=== PATIENT | male | born 1950 | race Caucasian/White ===

== ENCOUNTER 2016-07-22 23:11 | Emergency (ER) | payer MEDICARE, OTHER ==
[2016-07-22 23:22] VITALS: BP 152/66
[2016-07-22] MEDS ORDERED: Orphenadrine 100 MG Tab.ER PO STA (23:51)
--- NOTE | 2016-07-23 | EDM.PDOC ---
ED HPI GENERAL MEDICAL PROBLEM - General Chief Complaint: Back Pain or Injury Stated Complaint: LOWER LEFT SIDE PAIN Time Seen by Provider: 07/22/16 23:21 Source of Information: Reports: Patient, Family (), Old Records, RN Notes Reviewed History Limitations: Reports: No Limitations - History of Present Illness INITIAL COMMENTS - FREE TEXT/NARRATIVE: The patient states that he developed left lower back pain 3 days ago. He states that it initially radiated to his left lower quadrant, and was initially come and go, but now it is constant and remains in his lower left back. He is unable to describe its character. He states that it is worse with ambulation and lying supine. He denies recent injury. He denies prior similar symptoms. No urinary symptoms. The patient denies a prior history of kidney stones. The patient states that he has been taking ibuprofen which has not been helping. The patient PCP is Dr. Umer Ag from [place], [place]. The patient states that he has an appointment to see Dr. Ag on 08/02/2016. Treatments [employer]ER: Reports: NSAIDS Left Lower Back Pain Score (Numeric/FACES): 7 - Related Data Allergies Allergy/AdvReac Type Severity Reaction Status Date / Time No Known Allergies Allergy Verified 03/28/16 17:40 Home Meds: Home Meds Hydrochlorothiazide 25 mg PO DAILY 07/22/16 [History] Lisinopril 40 mg PO DAILY 07/22/16 [History] Orphenadrine [Norflex] 1 tab PO Q12H #20 tab.er 07/22/16 [Rx] Pantoprazole Sodium [Protonix] 40 mg PO DAILY 07/22/16 [History] Paquinel 1 tab PO DAILY 07/22/16 [History] Past Medical History HEENT History: Reports: Impaired Vision Other HEENT History: glasses Cardiovascular History: Reports: Hypertension Gastrointestinal History: Reports: Colon Polyp, GERD Musculoskeletal History: Reports: Arthritis, Back Pain, Chronic Endocrine/Metabolic History: Reports: Obesity/BMI 30+ Immunologic History: Reports: SLE - Infectious Disease History Infectious Disease History: Reports: Other (See Below) (Polio as a child) - Past Surgical History HEENT Surgical History: Reports: Oral Surgery (All teeth extracted), Tonsillectomy Neurological Surgical History: Reports: Lumbar Spine (Lumbar fusion 1999) Musculoskeletal Surgical History: Reports: Knee Replacement (left), Shoulder Surgery (Left total arthroplasty. Right shoulder open surgery) Social & Family History - Family History Family Medical History: Noncontributory - Tobacco Use Smoking Status *Q: Current Every Day Smoker Years of Tobacco use: 40 Packs/Tins Daily: 1 - Caffeine Use Caffeine Use: Reports: None - Alcohol Use Alcohol Use History: No - Recreational Drug Use Recreational Drug Use: No - Living Situation & Occupation Living situation: Reports: , with Spouse, with Family (Daughter, 2 grandchildren) Occupation: Retired ED ROS GENERAL - Review of Systems Review Of Systems: See Below Constitutional: Reports: No Symptoms HEENT: Reports: No Symptoms Respiratory: Reports: No Symptoms Cardiovascular: Reports: No Symptoms Endocrine: Reports: No Symptoms GI/Abdominal: Reports: No Symptoms : Reports: No Symptoms Musculoskeletal: Reports: No Symptoms Skin: Reports: No Symptoms Neurological: Reports: No Symptoms Psychiatric: Reports: No Symptoms Hematologic/Lymphatic: Reports: No Symptoms Immunologic: Reports: No Symptoms ED EXAM,LOWER BACK PAIN/INJURY - Physical Exam Exam: See Below Exam Limited By: No Limitations General Appearance: Alert, WD/WN, No Apparent Distress, Other (Disheveled) Eye Exam: Bilateral Eye: Normal Inspection Ears: Normal External Exam, Hearing Grossly Normal Nose: Normal Inspection, No Blood Throat/Mouth: Normal Inspection, Normal Lips, Normal Voice, No Airway Compromise Head: Atraumatic, Normocephalic Neck: Normal Inspection, Full Range of Motion Respiratory/Chest: No Respiratory Distress, Lungs Clear, Normal Breath Sounds, No Accessory Muscle Use Cardiovascular: Normal Peripheral Pulses, Regular Rate, Rhythm, No Gallop, No JVD, No Murmur, No Rub GI/Abdominal: Normal Bowel Sounds, Soft, Non-Tender, No Organomegaly, No Distention, No Abnormal Bruit, Other (Obese) (Male) Exam: Deferred Back Exam: Normal Inspection, Full Range of Motion, Paraspinal Tenderness (Mild , lower lumbar, left (only)), Other (The patient is able to flex the spine to 90 and extend to 0. He is able to tilt bilaterally to approximately 15. He is able to twist bilaterally to approximately 15. Unilateral knee bend is normal bilaterally. Straight leg raise is negative at 90 bilaterally.). No: CVA Tenderness (L), CVA Tenderness (R) Extremities: Normal Inspection, Normal Range of Motion, No Pedal Edema, Normal Capillary Refill Neurological: Alert, Normal Dorsiflexion, Normal Plantar Flexion, No Motor/ Sensory Deficits, Oriented x 3 Psychiatric: Normal Affect Skin Exam: Warm, Dry, Intact, Normal Color, No Rash Lymphatic: No Adenopathy Course - Vital Signs Last Recorded V/S: Last Vital Signs Temp 37.0 C 07/22/16 23:18 Pulse 98 07/22/16 23:18 Resp 16 07/22/16 23:18 BP 152/66 H 07/22/16 23:18 Pulse Ox 99 07/22/16 23:18 - Orders/Labs/Meds Orders: Active Orders 24 hr Category Date Time Status Orphenadrine [Norflex] Med 07/22/16 23:51 Stat 100 mg PO ONETIME STA - Re-Assessments/Exams Free Text/Narrative Re-Assessment/Exam: 07/22/16 23:50 The patient reports lower left back pain, which he states he has not had previously, however, the patient was seen in this ED 03/28/2016 for a refill of his Percocet 10/325 that he takes for chronic low back pain, and during his history today, he admitted that he has a history of chronic low back pain. He also let slip that he has Percocet at home. On examination, the patient has remarkable flexibility. I do not suspect any nerve involvement. I suspect that the patient is drug-seeking, but to give him the benefit of the doubt, I will treat him for a muscle spasm with Norflex. The patient protested, stating that when he has taken muscle relaxants (citing Valium, which is not a muscle relaxant) in the past, they caused his upper back to "go out". This sounds like nonsense. Departure - Departure Time of Disposition: 23:52 Disposition: Home, Self-Care 01 Condition: good Clinical Impression: Low back pain - Discharge Information Forms: ED Department Discharge Additional Instructions: You were seen in the emergency room for lower left back pain. On examination, your pain appears to be due to a muscle spasm. You have been started on the muscle relaxant Norflex. Take one tablet every 12 hours, as prescribed. Followup with your PCP, Dr. Heraclio Ag, at your previously scheduled appointment 08/02/2016. If any other problems, please do not hesitate to return to the ER. - My Orders Last 24 Hours: My Active Orders 07/22/16 23:51 Orphenadrine [Norflex] 100 mg PO ONETIME STA - Assessment/Plan Last 24 Hours: My Active Orders 07/22/16 23:51 Orphenadrine [Norflex] 100 mg PO ONETIME STA
== END 2016-07-23 00:06 | disposition home or self-care (01) ==
LOC: JD.ED 23:11
DX: M54.5 Low back pain (principal); H54.7 Unspecified visual loss; I10 Essential (primary) hypertension; K21.9 Gastro-esophageal reflux disease without esophagitis; M19.90 Unspecified osteoarthritis, unspecified site; E66.9 Obesity, unspecified; F17.210 Nicotine dependence, cigarettes, uncomplicated; Z68.35 Body mass index [BMI] 35.0-35.9, adult; Z79.899 Other long term (current) drug therapy; Z98.890 Other specified postprocedural states; Z96.652 Presence of left artificial knee joint; Z96.612 Presence of left artificial shoulder joint
CPT/HCPCS: 99283; A9270

== ENCOUNTER 2016-07-23 03:58 | Emergency (ER) | payer MEDICARE, OTHER ==
[2016-07-23 04:08] VITALS: BP 166/74
--- NOTE | 2016-07-23 04:17 | EDM.PDOC ---
ED HPI GENERAL MEDICAL PROBLEM - General Chief Complaint: Flank Pain Stated Complaint: LOWER LEFT SIDE PAIN Time Seen by Provider: 07/23/16 04:05 Source of Information: Reports: Patient, Family (), Old Records, RN Notes Reviewed History Limitations: Reports: No Limitations - History of Present Illness INITIAL COMMENTS - FREE TEXT/NARRATIVE: The patient was seen by me in this ED just a few hours ago with a complaint of lower left back pain for 3 days. He stated at that time that his pain had radiated initially to his left lower quadrant and was come and go, but that it became more constant and remained in his lower left back. He was unable to describe the character of the pain. He stated that it was worse with ambulation or lying supine. He denied recent injury and denied prior similar symptoms, however, the patient admitted that he has a history of chronic lower back pain. On examination, the patient had mild tenderness to his lower left back and remarkable flexibility, including the ability to flex his spine to 90, and his straight leg raise was negative to 90 bilaterally. The patient had indicated that he has been treated with Percocet 10/325 per his PCP, Dr. Heraclio Ag, from [place], [place], and that he still had Percocet at home , however, review of the [place] PMPi indicates that the last prescription for Percocet was filled on 10/07/2015, therefore I suspect that the patient has run out of his Percocet. I felt that the patient was likely drug seeking, however, I gave the patient the benefit of doubt and started him on Norflex. The patient was to followup with his PCP at a previously scheduled appointment on 08/02/2016. He returns, stating that his pain is no better. He states that he expected that he would have relief in under 4 hours. Right Flank Pain Score (Numeric/FACES): 10 - Related Data Allergies Allergy/AdvReac Type Severity Reaction Status Date / Time No Known Allergies Allergy Verified 07/23/16 04:09 Home Meds: Home Meds Hydrochlorothiazide 25 mg PO DAILY 07/22/16 [History] Lisinopril 40 mg PO DAILY 07/22/16 [History] Orphenadrine [Norflex] 1 tab PO Q12H #20 tab.er 07/22/16 [Rx] Pantoprazole Sodium [Protonix] 40 mg PO DAILY 07/22/16 [History] Paquinel 1 tab PO DAILY 07/22/16 [History] Past Medical History HEENT History: Reports: Impaired Vision Other HEENT History: glasses Cardiovascular History: Reports: Hypertension Gastrointestinal History: Reports: Colon Polyp, GERD Musculoskeletal History: Reports: Arthritis, Back Pain, Chronic Endocrine/Metabolic History: Reports: Obesity/BMI 30+ Immunologic History: Reports: SLE - Infectious Disease History Infectious Disease History: Reports: Other (See Below) (Polio as a child) - Past Surgical History HEENT Surgical History: Reports: Oral Surgery (All teeth extracted), Tonsillectomy Neurological Surgical History: Reports: Lumbar Spine (Lumbar fusion 1999) Musculoskeletal Surgical History: Reports: Knee Replacement (left), Shoulder Surgery (Left total arthroplasty. Right shoulder open surgery) Social & Family History - Family History Family Medical History: Noncontributory - Tobacco Use Smoking Status *Q: Current Every Day Smoker Years of Tobacco use: 40 Packs/Tins Daily: 1 - Caffeine Use Caffeine Use: Reports: None - Recreational Drug Use Recreational Drug Use: No - Living Situation & Occupation Living situation: Reports: , with Spouse, with Family (Daughter, 2 grandchildren) Occupation: Retired ED ROS GENERAL - Review of Systems Review Of Systems: See Below Constitutional: Reports: No Symptoms HEENT: Reports: No Symptoms Respiratory: Reports: No Symptoms Cardiovascular: Reports: No Symptoms Endocrine: Reports: No Symptoms GI/Abdominal: Reports: No Symptoms : Reports: No Symptoms Musculoskeletal: Reports: No Symptoms Skin: Reports: No Symptoms Neurological: Reports: No Symptoms Psychiatric: Reports: No Symptoms Hematologic/Lymphatic: Reports: No Symptoms Immunologic: Reports: No Symptoms ED EXAM,LOWER BACK PAIN/INJURY - Physical Exam Exam: See Below Exam Limited By: No Limitations General Appearance: Alert, WD/WN, No Apparent Distress Eye Exam: Bilateral Eye: Normal Inspection Ears: Normal External Exam, Hearing Grossly Normal Nose: Normal Inspection, No Blood Throat/Mouth: Normal Inspection, Normal Lips, Normal Voice, No Airway Compromise Head: Atraumatic, Normocephalic Neck: Normal Inspection, Full Range of Motion Respiratory/Chest: No Respiratory Distress, Lungs Clear, Normal Breath Sounds, No Accessory Muscle Use Cardiovascular: Normal Peripheral Pulses, Regular Rate, Rhythm, No Gallop, No JVD, No Murmur, No Rub GI/Abdominal: Normal Bowel Sounds, Soft, Non-Tender, No Organomegaly, No Distention, No Abnormal Bruit, Other (Obese) (Male) Exam: Deferred Rectal (Males) Exam: Deferred Back Exam: Normal Inspection, Full Range of Motion, Paraspinal Tenderness (mild , lower left. Nontender elsewhere.) Extremities: Normal Inspection, Normal Range of Motion, No Pedal Edema, Normal Capillary Refill Neurological: Alert, Normal Dorsiflexion, Normal Plantar Flexion, No Motor/ Sensory Deficits, Oriented x 3 Psychiatric: Normal Affect Skin Exam: Warm, Dry, Intact, Normal Color, No Rash Lymphatic: No Adenopathy Course - Vital Signs Last Recorded V/S: Last Vital Signs Temp 36.9 C 07/23/16 04:06 Pulse 94 07/23/16 04:06 Resp 18 07/23/16 04:06 BP 166/74 H 07/23/16 04:06 Pulse Ox 98 07/23/16 04:06 - Orders/Labs/Meds Labs: Laboratory Tests 07/23/16 07/23/16 07/23/16 Range/Units 04:30 04:30 04:30 WBC 8.76 (4.23-9.07) K/mm3 RBC 3.72 L (4.63-6.08) M/mm3 Hgb 11.6 L (13.7-17.5) gm/L Hct 34.5 L (40.1-51.0) % MCV 92.7 H (79.0-92.2) fl MCH 31.2 (25.7-32.2) pg MCHC 33.6 (32.2-35.5) g/dl RDW Std Deviation 44.8 H (35.1-43.9) fL Plt Count 200 (163-337) K/mm3 MPV 10.9 (9.4-12.3) fl Neutrophils % (Manual) 80 H (40-60) % Band Neutrophils % 0 (0-10) % Lymphocytes % (Manual) 16 L (20-40) % Atypical Lymphs % 0 % Immat Monocytes % (Man) 0 Monocytes % (Manual) 1 L (2-10) % Eosinophils % (Manual) 3 (0.8-7.0) % Basophils % (Manual) 0 L (0.2-1.2) Metamyelocytes % 0 Myelocytes % 0 Promyelocytes % 0 Blast Cells % 0 Plasma Cell % (Manual) 0 Nucleated RBCs 0.0 % Hypersegmented Neuts Few Platelet Estimate Adequate RBC Morph Comment Normal Sodium 137 (136-145) mEq/L Potassium 3.4 L (3.5-5.1) mEq/L Chloride 100 (98-107) mEq/L Carbon Dioxide 24 (21-32) mEq/L Anion Gap 16.4 H (5-15) BUN 14 (7-18) mg/dL Creatinine 1.0 (0.7-1.3) mg/dL Est Cr Clr Drug Dosing TNP Estimated GFR (MDRD) > 60 (>60) mL/min BUN/Creatinine Ratio 14.0 (14-18) Glucose 96 (80-115) mg/dL Calcium 9.1 (8.5-10.1) mg/dL Total Bilirubin 0.2 (0.2-1.0) mg/dL AST 15 (15-37) U/L ALT 19 (16-63) U/L Alkaline Phosphatase 58 (46-116) U/L Total Protein 7.5 (6.4-8.2) g/dl Albumin 3.5 (3.4-5.0) g/dl Globulin 4.0 gm/dL Albumin/Globulin Ratio 0.9 L (1-2) Lipase 121 (73-393) U/L Urine Color Yellow (Yellow) Urine Appearance Clear (Clear) Urine pH 6.0 (5.0-8.0) Ur Specific [place] 1.015 (1.005-1.030) Urine Protein Negative (Negative) Urine Glucose (UA) Negative (Negative) Urine Ketones Negative (Negative) Urine Occult Blood Negative (Negative) Urine Nitrite Negative (Negative) Urine Bilirubin Negative (Negative) Urine Urobilinogen 0.2 (0.2-1.0) Ur Leukocyte Esterase Negative (Negative) Urine RBC Not seen (0-5) /hpf Urine WBC Not seen (0-5) /hpf Ur Epithelial Cells Not Reportable Ur Squamous Epith Cells 0-5 (0-5) /hpf Urine Bacteria Not seen (FEW) /hpf Urine Mucus Few (FEW) /hpf Urine Opiates Screen (NEGATIVE) Ur Buprenorphine Scrn (NEGATIVE) Ur Oxycodone Screen (NEGATIVE) Urine Methadone Screen (NEGATIVE) Ur Propoxyphene Screen (NEGATIVE) Ur Barbiturates Screen (NEGATIVE) Ur Tricyclics Screen (NEGATIVE) Ur Phencyclidine Scrn (NEGATIVE) Ur Amphetamine Screen (NEGATIVE) U Methamphetamines Scrn (NEGATIVE) U Benzodiazepines Scrn (NEGATIVE) U Cocaine Metab Screen (NEGATIVE) U Marijuana (THC) Screen (NEGATIVE) 07/23/16 Range/Units 04:30 WBC (4.23-9.07) K/mm3 RBC (4.63-6.08) M/mm3 Hgb (13.7-17.5) gm/L Hct (40.1-51.0) % MCV (79.0-92.2) fl MCH (25.7-32.2) pg MCHC (32.2-35.5) g/dl RDW Std Deviation (35.1-43.9) fL Plt Count (163-337) K/mm3 MPV (9.4-12.3) fl Neutrophils % (Manual) (40-60) % Band Neutrophils % (0-10) % Lymphocytes % (Manual) (20-40) % Atypical Lymphs % % Immat Monocytes % (Man) Monocytes % (Manual) (2-10) % Eosinophils % (Manual) (0.8-7.0) % Basophils % (Manual) (0.2-1.2) Metamyelocytes % Myelocytes % Promyelocytes % Blast Cells % Plasma Cell % (Manual) Nucleated RBCs % Hypersegmented Neuts Platelet Estimate RBC Morph Comment Sodium (136-145) mEq/L Potassium (3.5-5.1) mEq/L Chloride (98-107) mEq/L Carbon Dioxide (21-32) mEq/L Anion Gap (5-15) BUN (7-18) mg/dL Creatinine (0.7-1.3) mg/dL Est Cr Clr Drug Dosing Estimated GFR (MDRD) (>60) mL/min BUN/Creatinine Ratio (14-18) Glucose (80-115) mg/dL Calcium (8.5-10.1) mg/dL Total Bilirubin (0.2-1.0) mg/dL AST (15-37) U/L ALT (16-63) U/L Alkaline Phosphatase (46-116) U/L Total Protein (6.4-8.2) g/dl Albumin (3.4-5.0) g/dl Globulin gm/dL Albumin/Globulin Ratio (1-2) Lipase (73-393) U/L Urine Color (Yellow) Urine Appearance (Clear) Urine pH (5.0-8.0) Ur Specific [place] (1.005-1.030) Urine Protein (Negative) Urine Glucose (UA) (Negative) Urine Ketones (Negative) Urine Occult Blood (Negative) Urine Nitrite (Negative) Urine Bilirubin (Negative) Urine Urobilinogen (0.2-1.0) Ur Leukocyte Esterase (Negative) Urine RBC (0-5) /hpf Urine WBC (0-5) /hpf Ur Epithelial Cells Ur Squamous Epith Cells (0-5) /hpf Urine Bacteria (FEW) /hpf Urine Mucus (FEW) /hpf Urine Opiates Screen Negative (NEGATIVE) Ur Buprenorphine Scrn Negative (NEGATIVE) Ur Oxycodone Screen Presumptive positive H (NEGATIVE) Urine Methadone Screen Negative (NEGATIVE) Ur Propoxyphene Screen Negative (NEGATIVE) Ur Barbiturates Screen Negative (NEGATIVE) Ur Tricyclics Screen Negative (NEGATIVE) Ur Phencyclidine Scrn Negative (NEGATIVE) Ur Amphetamine Screen Presumptive positive H (NEGATIVE) U Methamphetamines Scrn Negative (NEGATIVE) U Benzodiazepines Scrn Negative (NEGATIVE) U Cocaine Metab Screen Negative (NEGATIVE) U Marijuana (THC) Screen Negative (NEGATIVE) Meds: Medications Discontinued Medications Generic Name Dose Route Start Last Admin Trade Name Freq PRN Reason Stop Dose Admin Diatrizoate Meglum/Diatrizoate Sod 90 ml 07/23/16 05:35 07/23/16 06:23 Gastrografin 37% PO 07/23/16 05:36 90 ml ONETIME ONE Administration Sodium Chloride 1,000 mls @ 150 mls/hr 07/23/16 04:30 07/23/16 04:39 Normal Saline IV 150 mls/hr ASDIRECTED ANDER Administration Iopamidol 125 ml 07/23/16 05:35 07/23/16 06:23 Isovue-300 (61%) IVPUSH 07/23/16 05:36 125 ml ONETIME ONE Administration - Radiology Interpretation Free Text/Narrative:: CT of the abdomen and pelvis with oral and IV contrast is read by Dr. Lind as: 1. Umbilical hernia containing a loop of small bowel. No definite findings of incarceration are seen at this time. 2. Increased stool within the colon. Other incidental findings. 3. Nothing acute is appreciated on CT study of the abdomen and pelvis. - Re-Assessments/Exams Free Text/Narrative Re-Assessment/Exam: 07/23/16 06:31 Test results discussed with the patient and his . Today's workup is unremarkable. During the patient's earlier visit, he had inadvertently mentioned that he has Percocet at home. I asked him at this time if he has Percocet at home, and he stated that now, he had run out yesterday, because his doctor had prescribed only 270 tablets instead of the usual 300 (the patient takes 10 tablets of Percocet 10/325 per day). He states that he has a contract with his pain management physician, Dr. Heraclio Ag. I pointed out that under the contract, the patient is not permitted to go to the ED to receive pain medication. He states that he is not seeking pain medication, but that he simply wants something for pain. I offered Toradol, which he declined. Departure - Departure Time of Disposition: 06:35 Disposition: Home, Self-Care 01 Condition: good Clinical Impression: Chronic back pain, Drug-seeking behavior - Discharge Information Referrals: PCP,Not In Area [Primary Care Provider] - Forms: ED Department Discharge Additional Instructions: You were seen in the emergency room for continued lower left back pain. Workup in the ER included blood work, a urinalysis, a urine drug screen, and a CT scan of your abdomen and pelvis. Your entire workup was unremarkable. You do not have a kidney stone. No explanation for your lower back pain was found. We recommend that you take the previously prescribed muscle relaxant, Norflex, as prescribed. Because you have a pain contract with your pain management physician, Dr. Umer Ag, the ER is not permitted to give you opioids. Follow up with Dr. Ag at your previously scheduled appointment 08/02/2016. If any other problems, please do not hesitate to return to the ER.
[2016-07-23] MEDS ORDERED: Sodium Chloride 0.9% 1,000 ML IV SCH (04:30)
[2016-07-23] MEDS ORDERED: Diatrizoate Meglumine/Diatrizoate Sodium 37% 120 ML Bottle PO ONE (05:35)
[2016-07-23] MEDS ORDERED: Iopamidol 612 MG/ML 150 ML Bottle IVPUSH ONE (05:35)
--- NOTE | 2016-07-23 06:12 | CT ---
CT abdomen and pelvis Technique: Multiple axial sections were obtained from above the dome of the diaphragm inferiorly to the pubic symphysis. Intravenous and oral contrast was utilized. Delayed images were also obtained through the pelvis. Comparison: No previous study is available. Findings: Small portion of the visualized lung bases are clear. Liver shows no focal parenchymal abnormality. Spleen appears within normal limits. Adrenal gland on the right side shows a nodule which shows some negative Hounsfield unit measurements which most likely represents an adenoma measuring 3.2 cm. Pancreas is within normal limits. Gallbladder shows no calcified gallstones. Kidneys show symmetric contrast enhancement. Small low-density lesion is noted within the inferior left kidney which is felt compatible with a small cyst measuring 1.0 cm. Vascular calcification noted within the kidneys. Atherosclerotic calcification is noted within the aorta and iliac vessels. No aneurysm is seen. No retroperitoneal adenopathy is identified. Appendix is seen which is normal. Anterior abdominal wall umbilical hernia is seen which contains a loop of small bowel. No definite findings of incarceration seen at this time. No pelvic mass or adenopathy is seen. No inflammatory change or free fluid is identified. Delayed images shows contrast within the ureters and contrast is also seen within the bladder. Mild increased stool noted throughout the colon. Bone window settings were reviewed which shows previous surgery at L4-L5. Diffuse disc space narrowing with endplate osteophytes are seen with scattered levels of vacuum phenomena. Impression: 1. Umbilical hernia containing a loop of small bowel. No definite findings of incarceration are seen at this time. 2. Increased stool within the colon. Other incidental findings. 3. Nothing acute is appreciated on CT study of the abdomen and pelvis. Diagnostic code #3
== END 2016-07-23 06:42 | disposition home or self-care (01) ==
LOC: JD.ED 03:58
DX: G89.29 Other chronic pain (principal); M54.5 Low back pain; H54.7 Unspecified visual loss; I10 Essential (primary) hypertension; K21.9 Gastro-esophageal reflux disease without esophagitis; M19.90 Unspecified osteoarthritis, unspecified site; F17.210 Nicotine dependence, cigarettes, uncomplicated; E66.9 Obesity, unspecified; Z68.35 Body mass index [BMI] 35.0-35.9, adult; Z76.5 Malingerer [conscious simulation]; Z79.899 Other long term (current) drug therapy; Z96.652 Presence of left artificial knee joint; Z96.611 Presence of right artificial shoulder joint; Z98.890 Other specified postprocedural states
CPT/HCPCS: 36415; 74177; 80053; 80306; 81001; 83690; 85025; 96360; 96361; 99284; J7040; Q9963; Q9967; 99283

== ENCOUNTER 2017-01-03 09:05 | Inpatient (IN) | payer MEDICARE ==
[2017-01-03] MEDS ORDERED: Acetaminophen 325 MG Tab PO ONE (09:38)
[2017-01-03] MEDS ORDERED: Sodium Chloride 0.9% 1,000 ML IV SCH (09:45)
--- NOTE | 2017-01-03 09:46 | EDM.PDOC ---
ED HPI GENERAL MEDICAL PROBLEM - General Chief Complaint: General Stated Complaint: DISORIENTED, WEAKNESS Time Seen by Provider: 01/03/17 09:37 Source of Information: Reports: Patient, Family ( and son ) History Limitations: Reports: Altered Mental Status - History of Present Illness INITIAL COMMENTS - FREE TEXT/NARRATIVE: 66-year-old male presents to the ED with acute onset of delirium associated with high fever and chills/rigors. Apparently illness started suddenly about 2300 hrs. last night and persisted throughout the night. He is very confused and disoriented at times according to his . Stating things that don't make sense or are untrue. No nausea vomiting or diarrhea. He has regained function of his bowls since he's had L-spine surgery. He had a lumbar laminectomy and bilateral medial facetectomy from L2-L4 due to severe spinal stenosis. It was carried out on [address] Graham at [facility] in [place]. His lisa are due to be removed today. The isn't sure but she believes he may have had a Worthington catheter in for a day postop. He she knows that he's been voiding almost every hour all night long. Urine is dark color. No order. He is a smoker of a pack per day and apparently fell 2 days before surgery with contusion to the left rib cage with no fractures identified but possible pulmonary contusion. At the time my examination he is quite confused and his asked answer most of the questions. He is very warm to palpation and the nurse reports temperature 102.6. Last received ibuprofen about 2000 hrs. last night. Has been off of his narcotics for 4 days. Pain is being treated with Tylenol and ibuprofen. Onset: Sudden Onset Date: 01/02/17 Onset Time: 23:00 Duration: Hour(s): Location: Reports: Generalized (Fever chills with confusion or acute delirium.) Severity: Severe Improves with: Reports: None Worsens with: Reports: None Context: Reports: Other. Denies: Activity, Exercise, Lifting, Sick Contact, Trauma Associated Symptoms: Reports: Confusion (14 days postop laminectomy L-spine.), Cough, Fever/Chills, Loss of Appetite, Malaise, Weakness (Two-week to walk or stand on his own volition.). Denies: Chest Pain ( Severe), cough w sputum ( Mild and mostly nonproductive), Diaphoresis, Headaches, Nausea/Vomiting, Rash, Seizure, Shortness of Breath, Syncope Treatments IMCU SPECIALIST: Reports: Acetaminophen, NSAIDS Right Thoracic Pain Score (Numeric/FACES): 3 - Related Data Allergies Allergy/AdvReac Type Severity Reaction Status Date / Time morphine Allergy Anxiety Verified 01/03/17 09:28 Home Meds: Home Meds Pantoprazole Sodium [Protonix] 40 mg PO DAILY 07/22/16 [History] Clobetasol Propionate [Temovate] 1 applic TOP BEDTIME PRN 01/03/17 [History] Cyclobenzaprine [Flexeril] 10 mg PO TID PRN 01/03/17 [History] Fluocinolone/Emol Cmb#65 [Synalar 0.025% Cream Kit] 1 applic PO BID PRN [History] Gabapentin [Neurontin] 200 mg PO TID 01/03/17 [History] Hydroxychloroquine [Plaquenil] 200 mg PO BID 01/03/17 [History] Ibuprofen 200 - 600 mg PO TID PRN 01/03/17 [History] Lisinopril 20 mg PO DAILY 01/03/17 [History] Polyethylene Glycol [Polyox Wsr-301] 1 dose PO DAILY 01/03/17 [History] Sennosides/Docusate Sodium [Senna-Docusate Sodium] 1 tab PO BID 01/03/17 [ History] Spironolactone [Aldactone] 25 mg PO DAILY 01/03/17 [History] Tamsulosin [Flomax] 0.8 mg PO BEDTIME 01/03/17 [History] amLODIPine [Norvasc] 10 mg PO DAILY 01/03/17 [History] oxyCODONE HCl/Acetaminophen [Percocet 10-325 mg Tablet] 1 tab PO Q2H PRN [History] Past Medical History HEENT History: Reports: Impaired Vision Other HEENT History: glasses Cardiovascular History: Reports: Hypertension Gastrointestinal History: Reports: Colon Polyp, GERD Musculoskeletal History: Reports: Arthritis, Back Pain, Chronic Other Musculoskeletal History: Back surgery Endocrine/Metabolic History: Reports: Obesity/BMI 30+ Immunologic History: Reports: SLE Dermatologic History: Reports: Other (See Below) Other Dermatologic History: Les - Infectious Disease History Infectious Disease History: Reports: Other (See Below) - Past Surgical History HEENT Surgical History: Reports: Oral Surgery, Tonsillectomy Neurological Surgical History: Reports: Laminectomy, Lumbar Spine Musculoskeletal Surgical History: Reports: Knee Replacement, Shoulder Surgery Social & Family History - Family History Family Medical History: Noncontributory - Tobacco Use Smoking Status *Q: Current Every Day Smoker Years of Tobacco use: 40 Packs/Tins Daily: 1 - Caffeine Use Caffeine Use: Reports: None - Recreational Drug Use Recreational Drug Use: No - Living Situation & Occupation Living situation: Reports: , with Spouse, with Family (Daughter, 2 grandchildren) Occupation: Retired ED ROS GENERAL - Review of Systems Review Of Systems: See Below Constitutional: Reports: Fever, Chills, Malaise, Weakness, Fatigue, Decreased Appetite, Weight Loss. Denies: Night Sweats, Diaphoresis, Weight Gain Respiratory: Reports: Shortness of Breath, Cough. Denies: Wheezing, Sputum, Hemoptysis (Vocational cough but not much or sputum production) Cardiovascular: Reports: Chest Pain (Still has some mild left-sided chest pain are as he fell 2 days prior to his back surgery injuring the left chest wall. No fractures were identified.) Endocrine: Reports: Fatigue GI/Abdominal: Reports: Decreased Appetite. Denies: Abdominal Pain, Anorexia, Black Stool, Constipation, Diarrhea, Difficulty Swallowing, Flatus, Hematemesis , Hematochezia, Melena, Mucous in Stool, Nausea, Stool Incontinence, Vomiting, Other : Reports: Frequency (Apparently has been up every hour during the night to void.) Musculoskeletal: Reports: Back Pain (Leg pain is better since surgery was performed.) Skin: Reports: Other (Healing surgical wound mid lumbar spine) Neurological: Reports: Confusion ( lisa present), Dizziness, Difficulty Walking, Weakness. Denies: Headache, Numbness, Tingling, Tremors, Trouble Speaking, Change in Speech, Gait Disturbance Psychiatric: Reports: Anxiety, Confusion Hematologic/Lymphatic: Reports: No Symptoms Immunologic: Reports: No Symptoms ED EXAM, GENERAL - Physical Exam Exam: See Below Exam Limited By: Altered Mental Status (Confused. Acute delirium from high fever.) General Appearance: Anxious (Mildly agitated.), Moderate Distress Eye Exam: Bilateral Eye: Normal Inspection Ears: Normal External Exam, Normal TMs Throat/Mouth: Other Head: Atraumatic (Lips and oropharynx are mildly dry.), Normocephalic Neck: Normal Inspection, Supple, Non-Tender, Full Range of Motion. No: Lymphadenopathy (L), Lymphadenopathy (R) Respiratory/Chest: Lungs Clear, Normal Breath Sounds, No Accessory Muscle Use, Respiratory Distress (Tachypnea At rest. O2 sats 88% on room air.), Decreased Breath Sounds (Decreased air into the lower 20% of lung adler bilaterally) Cardiovascular: Normal Peripheral Pulses, No Edema, No Gallop, No Murmur, No Rub , Tachycardia Peripheral Pulses: 2+: Posterior Tibial (L), Posterior Tibial (R), Dorsalis Pedis (L), Dorsalis Pedis (R) GI/Abdominal: Normal Bowel Sounds, Non-Tender, No Organomegaly, No Abnormal Bruit, No Mass, Pelvis Stable, Other (Obese abdomen. Umbilical hernia present that is easily reduced. No pain. Surgical scar to the left upper abdomen.) Back Exam: Other (Midline surgical wound over the lumbar spine appears to be healing satisfactorily. Lisa are still present and will be removed today. There is surrounding erythema is normal for operative intervention.) Extremities: Normal Inspection, Normal Range of Motion, Non-Tender, No Pedal Edema, Pedal Edema (2+ pitting edema both lower extremities.) Neurological: CN II-XII Intact, Normal Reflexes, No Motor/Sensory Deficits. No : Oriented, Normal Cognition, Normal Gait Psychiatric: Anxious, Other Skin Exam: Warm (Mildly agitated due to confusion), Dry, Intact, Normal Color, No Rash EKG INTERPRETATION EKG Date: 01/03/17 Time: 09:50 Rhythm: Other Rate (Beats/Min): 114 [place]: Normal P-Wave: Enlarged (Left atrial hypertrophy pattern) QRS: Other (Minimal Q waves II, III, and F aVF consider possible old inferior wall myocardial infarction.) ST-T: Other (Diffuse early repolarization pattern.) QT: Normal EKG Interpretation Comments: Abnormal ECG Course - Vital Signs Last Recorded V/S: Last Vital Signs Temp 39.1 C H 01/03/17 09:54 Pulse 117 H 01/03/17 09:18 Resp 24 H 01/03/17 09:18 BP 135/68 01/03/17 09:18 Pulse Ox 88 L 01/03/17 09:18 - Orders/Labs/Meds Orders: Active Orders 24 hr Category Date Time Status EKG Documentation Completion [RC] STAT Care 01/03/17 09:39 Active Oxygen Therapy [RC] ASDIRECTED Care 01/03/17 10:00 Active Chest 1V Frontal [CR] Stat Exams 01/03/17 09:38 Taken CULTURE BLOOD [BC] Stat Lab 01/03/17 10:03 Received CULTURE BLOOD [BC] Stat Lab 01/03/17 10:14 Received Sodium Chloride 0.9% [Normal Saline] 1,000 ml Med 01/03/17 09:45 Active IV ASDIRECTED cefTRIAXone [Rocephin] 2 gm Med 01/03/17 11:00 Active Sodium Chloride 0.9% [Normal Saline] 100 ml IV Q24H Blood Culture x2 Reflex Set [OM.PC] Stat Oth 01/03/17 09:39 Ordered Medication Orders Sodium Chloride (Normal Saline) 1,000 mls @ 500 mls/hr IV ASDIRECTED ANDER Last Admin: 01/03/17 09:54 Dose: 500 mls/hr Ceftriaxone Sodium 2 gm/ (Sodium Chloride) 100 mls @ 200 mls/hr IV Q24H ANDER Last Admin: 01/03/17 11:10 Dose: 200 mls/hr Labs: Laboratory Tests 01/03/17 01/03/17 01/03/17 Range/Units 09:47 10:03 10:03 WBC 16.53 H (4.23-9.07) K/mm3 RBC 3.32 L (4.63-6.08) M/mm3 Hgb 9.8 L (13.7-17.5) gm/L Hct 29.6 L (40.1-51.0) % MCV 89.2 (79.0-92.2) fl MCH 29.5 (25.7-32.2) pg MCHC 33.1 (32.2-35.5) g/dl RDW Std Deviation 47.6 H (35.1-43.9) fL Plt Count 261 (163-337) K/mm3 MPV 11.0 (9.4-12.3) fl Neutrophils % (Manual) 80 H (40-60) % Band Neutrophils % 2 (0-10) % Lymphocytes % (Manual) 11 L (20-40) % Atypical Lymphs % 0 % Monocytes % (Manual) 7 (2-10) % Eosinophils % (Manual) 0 L (0.8-7.0) % Basophils % (Manual) 0 L (0.2-1.2) Platelet Estimate Adequate RBC Morph Comment Normal D-Dimer, Quantitative (0.19-0.59) mg/L Sodium 130 L (136-145) mEq/L Potassium 3.6 (3.5-5.1) mEq/L Chloride 93 L (98-107) mEq/L Carbon Dioxide 23 (21-32) mEq/L Anion Gap 17.6 H (5-15) BUN 11 (7-18) mg/dL Creatinine 1.0 (0.7-1.3) mg/dL Est Cr Clr Drug Dosing 64.92 mL/min Estimated GFR (MDRD) > 60 (>60) mL/min BUN/Creatinine Ratio 11.0 L (14-18) Glucose 94 (80-115) mg/dL Lactic Acid (0.4-2.0) mmol/L Calcium 8.9 (8.5-10.1) mg/dL Magnesium 1.7 L (1.8-2.4) mg/dl Total Bilirubin 0.3 (0.2-1.0) mg/dL AST 14 L (15-37) U/L ALT 12 L (16-63) U/L Alkaline Phosphatase 75 (46-116) U/L Troponin I < 0.017 (0.00-0.056) ng/mL C-Reactive Protein 39.7 H* (<1.0) mg/dL NT-Pro-B Natriuret Pep 813 H (0-125) pg/mL Total Protein 7.1 (6.4-8.2) g/dl Albumin 2.5 L (3.4-5.0) g/dl Globulin 4.6 gm/dL Albumin/Globulin Ratio 0.5 L (1-2) Urine Color Yellow (Yellow) Urine Appearance Clear (Clear) Urine pH 6.0 (5.0-8.0) Ur Specific [place] > or = 1.030 (1.005-1.030) Urine Protein 2+ H (Negative) Urine Glucose (UA) Negative (Negative) Urine Ketones Negative (Negative) Urine Occult Blood Trace-intact H (Negative) Urine Nitrite Negative (Negative) Urine Bilirubin Negative (Negative) Urine Urobilinogen 0.2 (0.2-1.0) Ur Leukocyte Esterase Negative (Negative) Urine RBC 5-10 H (0-5) /hpf Urine WBC 0-5 (0-5) /hpf Ur Epithelial Cells 0-5 (0-5) /hpf Urine Bacteria Rare (FEW) /hpf Urine Mucus Not seen (FEW) /hpf 01/03/17 01/03/17 Range/Units 10:03 10:03 WBC (4.23-9.07) K/mm3 RBC (4.63-6.08) M/mm3 Hgb (13.7-17.5) gm/L Hct (40.1-51.0) % MCV (79.0-92.2) fl MCH (25.7-32.2) pg MCHC (32.2-35.5) g/dl RDW Std Deviation (35.1-43.9) fL Plt Count (163-337) K/mm3 MPV (9.4-12.3) fl Neutrophils % (Manual) (40-60) % Band Neutrophils % (0-10) % Lymphocytes % (Manual) (20-40) % Atypical Lymphs % % Monocytes % (Manual) (2-10) % Eosinophils % (Manual) (0.8-7.0) % Basophils % (Manual) (0.2-1.2) Platelet Estimate RBC Morph Comment D-Dimer, Quantitative 2.30 H (0.19-0.59) mg/L Sodium (136-145) mEq/L Potassium (3.5-5.1) mEq/L Chloride (98-107) mEq/L Carbon Dioxide (21-32) mEq/L Anion Gap (5-15) BUN (7-18) mg/dL Creatinine (0.7-1.3) mg/dL Est Cr Clr Drug Dosing mL/min Estimated GFR (MDRD) (>60) mL/min BUN/Creatinine Ratio (14-18) Glucose (80-115) mg/dL Lactic Acid 0.9 (0.4-2.0) mmol/L Calcium (8.5-10.1) mg/dL Magnesium (1.8-2.4) mg/dl Total Bilirubin (0.2-1.0) mg/dL AST (15-37) U/L ALT (16-63) U/L Alkaline Phosphatase (46-116) U/L Troponin I (0.00-0.056) ng/mL C-Reactive Protein (<1.0) mg/dL NT-Pro-B Natriuret Pep (0-125) pg/mL Total Protein (6.4-8.2) g/dl Albumin (3.4-5.0) g/dl Globulin gm/dL Albumin/Globulin Ratio (1-2) Urine Color (Yellow) Urine Appearance (Clear) Urine pH (5.0-8.0) Ur Specific [place] (1.005-1.030) Urine Protein (Negative) Urine Glucose (UA) (Negative) Urine Ketones (Negative) Urine Occult Blood (Negative) Urine Nitrite (Negative) Urine Bilirubin (Negative) Urine Urobilinogen (0.2-1.0) Ur Leukocyte Esterase (Negative) Urine RBC (0-5) /hpf Urine WBC (0-5) /hpf Ur Epithelial Cells (0-5) /hpf Urine Bacteria (FEW) /hpf Urine Mucus (FEW) /hpf Meds: Medications Generic Name Dose Route Start Last Admin Trade Name Freq PRN Reason Stop Dose Admin Sodium Chloride 1,000 mls @ 500 mls/hr 01/03/17 09:45 01/03/17 09:54 Normal Saline IV 500 mls/hr ASDIRECTED ANDER Administration Ceftriaxone Sodium 2 gm/ 100 mls @ 200 mls/hr 01/03/17 11:00 01/03/17 11:10 Sodium Chloride IV 200 mls/hr Q24H ANDER Administration Discontinued Medications Generic Name Dose Route Start Last Admin Trade Name Freq PRN Reason Stop Dose Admin Acetaminophen 975 mg 01/03/17 09:38 01/03/17 09:54 Tylenol PO 01/03/17 09:39 975 mg NOW ONE Administration Hydromorphone HCl 0.5 mg 01/03/17 11:49 Dilaudid IVPUSH 01/03/17 11:50 ONETIME ONE Ondansetron HCl 4 mg 01/03/17 11:49 Zofran IVPUSH 01/03/17 11:50 ONETIME ONE - Radiology Interpretation Free Text/Narrative:: 66-year-old male presents to the ED with acute onset of high fever associated with chills and rigors and confusional state. Appears that this came on suddenly about 11:00 last evening and persisted throughout the night. Has not yet been able to eat today. He is 14 days postop laminectomy lumbar spine and the lisa are due to be removed today. Wound looks healthy enough to remove the lisa from. He is not showing any signs that it is the source of infection. Patient had a fall 2-3 days prior to his surgery contusing his left lateral chest and apparently that had a mild pulmonary contusion. He's also smoker of a pack of cigarette per day. There is some suggestion that he did have a Worthington catheter placed for sure. Time after surgery. He's been voiding every hour all night long. Possibility of urinary tract infection as source of sepsis exists. Plan septic workup to be done. IV will be normal saline at 500 mils per hour. Given Tylenol 975 mg per ora for fever relief. Oxygen level is low at 88% on room air. He will be placed on 2 L/m by nasal specks. - Re-Assessments/Exams Free Text/Narrative Re-Assessment/Exam: 01/03/17 10:47 initial white count is reported at 16.53. There is no differential yet available. Chest x-ray does reveal an infiltrate throughout the left upper and lower lung field suggestive of a pneumonia. Apparently this is where he fell there is some suspicion that he had developed a pulmonary contusion. CT of the chest will be performed providing his renal function is normal. He has no allergies to antibiotics. Will skip give him Rocephin 2 g IV at this time 01/03/17 11:48 Labs are back. White count is elevated at 16.53 with a left shift of 80% neutrophils and 2% bands. Hemoglobin is low at 9.8 with hematocrit of 29.6. MCV is 89.2. Platelet count normal 261,000. D-dimer was positive at 2.30. Likely elevated due to pneumonic infiltrate left lung. Sodium is low at 1: 30 potassium is 3.6 chloride 93 bicarbonate is 23. Anion gap is mildly elevated at 17.6 BUNs 11. Creatinine is 1.0 EGFR is greater than 60. Lactic acid was 0.9. Calcium normal at 8.9 magnesium slightly low at 1.7. AST is 14 ELT is 12. Troponin is less than 0.017. C-reactive protein is marked very high at 39.7. BNP is 813. Urinalysis shows 5-10 RBCs per high-power field but no signs of infection. Patient will be sent over for CT of the chest without contrast. 01/03/17 11:56: CT chest completed. It does reveal pneumonia throughout the left lower lobe of lung and perhaps the bottom of the left upper lung as well. Normal cardiac silhouette and no fluid in the pericardium. There is a questionable fracture or minimal fracture of the lateral left ninth rib laterally. Patient is requesting something for pain for his back given Dilaudid 0.5 mg IV with Zofran 4 mg IV. I spoke with Dr. Colon rehabilitation services aide hospitalist and she is accepted care. Patient be admitted to [facility] floor on telemetry. Departure - Departure Time of Disposition: 12:02 Disposition: Admitted As Inpatient 68 Condition: Fair Clinical Impression: Hypoxia, Hyponatremia Pneumonia Qualifiers: Pneumonia type: due to unspecified organism Laterality: left Lung location: lower lobe of lung Qualified Code(s): J18.1 - Lobar pneumonia, unspecified organism Congestive cardiac failure Qualifiers: Congestive heart failure type: unspecified congestive heart failure type - Discharge Information - My Orders Last 24 Hours: My Active Orders 01/03/17 09:38 Chest 1V Frontal [CR] Stat 01/03/17 09:39 EKG Documentation Completion [RC] STAT Blood Culture x2 Reflex Set [OM.PC] Stat 01/03/17 09:45 Sodium Chloride 0.9% [Normal Saline] 1,000 ml IV ASDIRECTED 01/03/17 10:00 Oxygen Therapy [RC] ASDIRECTED 01/03/17 10:03 CULTURE BLOOD [BC] Stat 01/03/17 10:14 CULTURE BLOOD [BC] Stat 01/03/17 11:00 cefTRIAXone [Rocephin] 2 gm Sodium Chloride 0.9% [Normal Saline] 100 ml IV Q24H - Assessment/Plan Last 24 Hours: My Active Orders 01/03/17 09:38 Chest 1V Frontal [CR] Stat 01/03/17 09:39 EKG Documentation Completion [RC] STAT Blood Culture x2 Reflex Set [OM.PC] Stat 01/03/17 09:45 Sodium Chloride 0.9% [Normal Saline] 1,000 ml IV ASDIRECTED 01/03/17 10:00 Oxygen Therapy [RC] ASDIRECTED 01/03/17 10:03 CULTURE BLOOD [BC] Stat 01/03/17 10:14 CULTURE BLOOD [BC] Stat 01/03/17 11:00 cefTRIAXone [Rocephin] 2 gm Sodium Chloride 0.9% [Normal Saline] 100 ml IV Q24H
[2017-01-03] MEDS: cefTRIAXone 2 GM in Sodium Chloride 0.9% 100 ML IV SCH (11:10)
[2017-01-03] MEDS ORDERED: Ondansetron 4 MG/2 ML SDV IVPUSH ONE (11:49)
[2017-01-03] MEDS ORDERED: HYDROmorphone 0.5 MG/0.5 ML Syringe IVPUSH ONE (11:49)
--- NOTE | 2017-01-03 11:58 | CR ---
Chest: Portable view of the chest was obtained. Comparison: No prior chest x-ray. Increased density is identified within the left midlung. Small nodular density is noted within the right lung base. Lungs otherwise are clear. Heart size and mediastinum are within normal limits. Previous left shoulder surgery is seen. Degenerative change and mild scoliosis is noted within the spine. Impression: 1. Consolidation within a portion of the left midlung most likely representing pneumonia. Follow-up recommended after clinical therapy is complete to make sure findings resolve. 2. Slight nodule within the right lung base most likely due to overlapping parenchymal scarring causing this finding. This is felt to be incidental. 3. Other incidental findings as noted above. Diagnostic code #3
[2017-01-03] MEDS ORDERED: Azithromycin 500 MG in Sodium Chloride 0.9% 250 ML IV ONE (12:06)
--- NOTE | 2017-01-03 12:34 | CT ---
CT chest Technique: Multiple axial sections through the chest are obtained. Intravenous contrast was not utilized. Findings: Parenchymal density is identified within the lingula. Air bronchograms are seen within this density. This is most likely is due to pneumonia. Emphysematous changes are seen throughout both lungs. Arterial calcification is seen within both kidneys. Moderate coronary artery calcification is seen. No pericardial thickening is seen. Small mediastinal lymph nodes are seen which are believed to be within normal limits. No axillary adenopathy is seen. Atherosclerotic calcification is noted within the thoracic aorta. Bone window settings were reviewed which show scattered disc space narrowing and degenerative endplate osteophytes throughout the spine. Impression: 1. Parenchymal density within the lingula showing air bronchograms. Findings most likely due to pneumonia. 2. Prominent emphysematous change. 3. Other incidental findings. Diagnostic code #5
[2017-01-03] MEDS: Sodium Chloride 0.9% 1,000 ML IV SCH (13:13)
--- NOTE | 2017-01-03 13:31 | PCM.HP ---
H&P History of Present Illness - General Date of Service: 01/03/17 Admit Problem/Dx: Admission Diagnosis/Problem Admission Diagnosis/Problem Fever Source of Information: Patient, Family, Provider History Limitations: Reports: No Limitations, Altered Mental Status - History of Present Illness Initial Comments - Free Text/Narative: 66 year old male with malaise, fever/chills has a LLL pneumonia. He is 14 days post op, December 19, [address] Dawood Graham at [facility]; complete L2- 3, and partial L4 laminectomy. The patient had severe spinal stenosis. He was febrile the evening DEVELOPMENT DISABILITY SPECIALIST, and presented with acute mental status change. His lisa were scheduled for removal and were removed in the ED at [facility]. Reportedly 2 days prior to his scheduled procedure, he had a left rib contusion, pulmonary involvement is indeterminate at the time of admission. Onset of Symptoms: Reports: Sudden Symptom Onset Date: 01/02/17 Duration of Symptoms: Reports: Hour(s):, Getting Worse, Waxing/Waning Location: Reports: Generalized Severity: Moderate Improves with: Reports: Medication Worsens with: Reports: None Associated Symptoms: Reports: Fever/Chills, Loss of Appetite, Malaise, Weakness Right Thoracic Pain Score (Numeric/FACES): 3 Lower Back Pain Score (Numeric/FACES): 5 - Related Data Allergies/Adverse Reactions: Allergies Allergy/AdvReac Type Severity Reaction Status Date / Time morphine Allergy Anxiety Verified 01/03/17 09:28 Home Medications: Home Meds Pantoprazole Sodium [Protonix] 40 mg PO DAILY 07/22/16 [History] Clobetasol Propionate [Temovate] 1 applic TOP BEDTIME PRN 01/03/17 [History] Cyclobenzaprine [Flexeril] 10 mg PO TID PRN 01/03/17 [History] Fluocinolone/Emol Cmb#65 [Synalar 0.025% Cream Kit] 1 applic PO BID PRN [History] Gabapentin [Neurontin] 200 mg PO TID 01/03/17 [History] Hydroxychloroquine [Plaquenil] 200 mg PO BID 01/03/17 [History] Ibuprofen 200 - 600 mg PO TID PRN 01/03/17 [History] Lisinopril 20 mg PO DAILY 01/03/17 [History] Polyethylene Glycol [Polyox Wsr-301] 1 dose PO DAILY 01/03/17 [History] Sennosides/Docusate Sodium [Senna-Docusate Sodium] 1 tab PO BID 01/03/17 [ History] Spironolactone [Aldactone] 25 mg PO DAILY 01/03/17 [History] Tamsulosin [Flomax] 0.8 mg PO BEDTIME 01/03/17 [History] amLODIPine [Norvasc] 10 mg PO DAILY 01/03/17 [History] oxyCODONE HCl/Acetaminophen [Percocet 10-325 mg Tablet] 1 tab PO Q2H PRN [History] Past Medical History HEENT History: Reports: Impaired Vision Other HEENT History: glasses Cardiovascular History: Reports: Hypertension Gastrointestinal History: Reports: Colon Polyp, GERD Musculoskeletal History: Reports: Arthritis, Back Pain, Chronic Other Musculoskeletal History: Back surgery Endocrine/Metabolic History: Reports: Obesity/BMI 30+ Immunologic History: Reports: SLE Dermatologic History: Reports: Other (See Below) Other Dermatologic History: Les - Infectious Disease History Infectious Disease History: Reports: Other (See Below) - Past Surgical History HEENT Surgical History: Reports: Oral Surgery, Tonsillectomy Neurological Surgical History: Reports: Laminectomy, Lumbar Spine Musculoskeletal Surgical History: Reports: Knee Replacement, Shoulder Surgery Social & Family History - Family History Family Medical History: Noncontributory - Tobacco Use Smoking Status *Q: Current Every Day Smoker Years of Tobacco use: 40 Packs/Tins Daily: 1 - Caffeine Use Caffeine Use: Reports: None - Recreational Drug Use Recreational Drug Use: No - Living Situation & Occupation Living situation: Reports: , with Spouse, with Family (Daughter, 2 grandchildren) Occupation: Retired H&P Review of Systems - Review of Systems: Review Of Systems: See Below General: Reports: Fever, Chills, Malaise, Weakness, Fatigue HEENT: Reports: No Symptoms Pulmonary: Reports: No Symptoms Cardiovascular: Reports: No Symptoms Gastrointestinal: Reports: No Symptoms Genitourinary: Reports: No Symptoms Musculoskeletal: Reports: No Symptoms Skin: Reports: No Symptoms Psychiatric: Reports: No Symptoms Neurological: Reports: No Symptoms Hematologic/Lymphatic: Reports: No Symptoms Immunologic: Reports: No Symptoms Exam - Exam Exam: See Below - Vital Signs Vital Signs: Last Vital Signs Temp 37.1 C 01/03/17 12:15 Pulse 95 01/03/17 12:15 Resp 13 01/03/17 12:15 BP 123/84 01/03/17 12:15 Pulse Ox 96 01/03/17 12:15 Weight: 90.718 kg - Exam Quality Assessment: Supplemental Oxygen, DVT Prophylaxis General: Alert, Oriented HEENT: Conjunctiva Clear, Nares Patent, Normal Nasal Septum, Pupils Equal, Pupils Reactive, PERRLA Neck: Supple, Trachea Midline Lungs: Normal Respiratory Effort, Decreased Breath Sounds Cardiovascular: Regular Rate, Tachycardia GI/Abdominal Exam: Normal Bowel Sounds, Soft, Non-Tender, No Organomegaly, No Distention (Male) Exam: Deferred Rectal (Males) Exam: Deferred Back Exam: Normal Inspection Extremities: Normal Inspection, No Pedal Edema Skin: Warm, Dry Neurological: Cranial Nerves Intact, Normal Speech Neuro Extensive - Mental Status: Alert, Oriented x3, Normal Mood/Affect, Normal Cognition, Memory Intact Neuro Extensive - Motor, Sensory, Reflexes: CN II-XII Intact Psychiatric: Alert, Normal Affect, Normal Mood - Patient Data Result Diagrams: 01/04/17 06:22 01/04/17 06:22 *Q Meaningful Use (ADM) - VTE *Q VTE Criteria *Q: - Stroke *Q Stroke Criteria *Q: - AMI *Q AMI Criteria *Q: - Problem List (1) SLE (systemic lupus erythematosus) SNOMED Code(s): 80319402 ICD Code: M32.9 - SYSTEMIC LUPUS ERYTHEMATOSUS, UNSPECIFIED Status: Acute Current Visit: Yes (2) GERD with esophagitis SNOMED Code(s): 954889326 ICD Code: K21.0 - GASTRO-ESOPHAGEAL REFLUX DISEASE WITH ESOPHAGITIS Status : Acute Current Visit: Yes (3) Tobacco dependence SNOMED Code(s): 65456666 ICD Code: F17.200 - NICOTINE DEPENDENCE, UNSPECIFIED, UNCOMPLICATED Status : Acute Current Visit: Yes (4) Obesity (BMI 30.0-34.9) SNOMED Code(s): 168097666 ICD Code: E66.9 - OBESITY, UNSPECIFIED Status: Acute Current Visit: Yes (5) Lobar pneumonia, unspecified organism SNOMED Code(s): 209319705 ICD Code: J18.1 - LOBAR PNEUMONIA, UNSPECIFIED ORGANISM Status: Acute Current Visit: Yes (6) Hyponatremia SNOMED Code(s): 19609385 ICD Code: E87.1 - HYPO-OSMOLALITY AND HYPONATREMIA Status: Acute Current Visit: Yes (7) Hypoxia SNOMED Code(s): 008189268 ICD Code: R09.02 - HYPOXEMIA Status: Acute Current Visit: Yes (8) Pneumonia SNOMED Code(s): 375308641 ICD Code: J18.9 - PNEUMONIA, UNSPECIFIED ORGANISM Status: Acute Current Visit: Yes Qualifiers: Pneumonia type: due to unspecified organism Laterality: left Lung location: lower lobe of lung Qualified Code(s): J18.1 - Lobar pneumonia, unspecified organism (9) Chronic back pain SNOMED Code(s): 779033590 ICD Code: M54.9 - DORSALGIA, UNSPECIFIED; G89.29 - OTHER CHRONIC PAIN Status: Acute Current Visit: No Problem List Initiated/Reviewed/Updated: Yes Orders Last 24hrs: Active Orders 24 hr Category Date Time Status Regular Diet [DIET] Diet 01/03/17 Lunch Active Sodium Chloride 0.9% [Normal Saline] 1,000 ml Med 01/03/17 13:15 Active IV ASDIRECTED Medication Orders Ceftriaxone Sodium 2 gm/ (Sodium Chloride) 100 mls @ 200 mls/hr IV Q24H [facility] Last Admin: 01/03/17 11:10 Dose: 200 mls/hr Sodium Chloride (Normal Saline) 1,000 mls @ 100 mls/hr IV ASDIRECTED [facility] Last Admin: 01/03/17 13:13 Dose: 100 mls/hr Assessment/Plan Comment:: Impression: S/P L2-L4 laminectomy; post op, 14 days AMS, resolved after hydration Hypoxia, LLL PNA; O2 sat 88% on RA Hyponatremia Febrile illness Chronic HTN SLE Tobacco dependence GERD Obesity, BMI 34.3 Plan: IVF, 0.9NS IV antibiotic Duoneb O2, keep sat>92% Home meds Daily Labs DVT/GI prophylaxis SW/PT/OT
[2017-01-03] MEDS: Lisinopril 10 MG Tab PO SCH (16:20)
[2017-01-03] MEDS: Acetaminophen/oxyCODONE 325-5 MG Tab PO PRN (16:21)
[2017-01-03] MEDS: Acetaminophen Soln 650 MG/20.3 ML UD Cup PO PRN (17:21)
[2017-01-03] MEDS: Cyclobenzaprine 10 MG Tab PO PRN (17:30)
[2017-01-03] MEDS ORDERED: Albuterol/Ipratropium 3.0-0.5 MG/3 ML Neb Soln NEB PRN (17:52)
[2017-01-03] MEDS ORDERED: Albuterol 0.083% 2.5 MG/3 ML Neb Soln NEB PRN (17:53)
[2017-01-03] MEDS: Gabapentin 100 MG Cap PO SCH (21:30)
[2017-01-03] MEDS: Tamsulosin 0.4 MG Cap.ER PO SCH (21:30)
[2017-01-03] MEDS: Hydroxychloroquine 200 MG Tab PO SCH (21:30)
[2017-01-04] MEDS: Acetaminophen/oxyCODONE 325-5 MG Tab PO PRN ×2 (06:27→20:48)
[2017-01-04] MEDS: Pantoprazole 40 MG Tab.CR PO SCH (08:56)
[2017-01-04] MEDS: Spironolactone 25 MG Tab PO SCH (08:56)
[2017-01-04] MEDS: amLODIPine 10 MG Tab PO SCH (08:56)
[2017-01-04] MEDS: Hydroxychloroquine 200 MG Tab PO SCH ×2 (08:56→20:47)
[2017-01-04] MEDS: Gabapentin 100 MG Cap PO SCH ×3 (08:57→20:49)
[2017-01-04] MEDS: Lisinopril 10 MG Tab PO SCH (08:57)
[2017-01-04] MEDS: Enoxaparin 40 MG/0.4 ML Syringe SUBCUT SCH (08:57)
[2017-01-04] MEDS: Polyethylene Glycol 3350 Powder 17 GM Packet PO SCH (08:59)
[2017-01-04] MEDS: Cyclobenzaprine 10 MG Tab PO PRN (09:01)
[2017-01-04] MEDS: Nicotine 21 MG/24 Hr Patch TRDERM SCH ×2 (09:02→10:38)
[2017-01-04] MEDS: Sodium Chloride 0.9% 1,000 ML IV SCH (09:09)
[2017-01-04] MEDS: Levofloxacin/Dextrose 5%-Water 750 MG in Premix Bag 1 BAG IV SCH (09:10)
[2017-01-04] MEDS: cefTRIAXone 2 GM in Sodium Chloride 0.9% 100 ML IV SCH (11:09)
[2017-01-04] MEDS ORDERED: Magnesium Sulfate/Water 4 GM in Premix Bag 1 BAG IV ONE (11:17)
--- NOTE | 2017-01-04 11:28 | PCM.PN ---
- General Info Date of Service: 01/04/17 Functional Status: Reports: Tolerating Diet, Ambulating, Urinating - Review of Systems General: Reports: Weakness HEENT: Reports: No Symptoms Pulmonary: Reports: Shortness of Breath Cardiovascular: Reports: No Symptoms Gastrointestinal: Reports: No Symptoms Genitourinary: Reports: No Symptoms Musculoskeletal: Reports: No Symptoms Skin: Reports: No Symptoms Neurological: Reports: No Symptoms Psychiatric: Reports: No Symptoms - Patient Data Vitals - Most Recent: Last Vital Signs Temp 36.9 C 01/04/17 08:20 Pulse 95 01/04/17 08:20 Resp 21 H 01/04/17 08:20 BP 130/65 01/04/17 08:57 Pulse Ox 94 L 01/04/17 09:37 Weight - Most Recent: 90.718 kg I&O - Last 24 Hours: Intake & Output 01/03/17 01/04/17 01/04/17 22:59 06:59 14:59 Intake Total 300 3838 Output Total 1400 Balance 300 2438 Lab Results Last 24 Hours: Laboratory Results - last 24 hr 01/03/17 01/03/17 01/04/17 Range/Units 18:07 18:07 06:22 WBC 12.25 H (4.23-9.07) K/mm3 RBC 3.17 L (4.63-6.08) M/mm3 Hgb 9.3 L (13.7-17.5) gm/L Hct 28.6 L (40.1-51.0) % MCV 90.2 (79.0-92.2) fl MCH 29.3 (25.7-32.2) pg MCHC 32.5 (32.2-35.5) g/dl RDW Std Deviation 49.3 H (35.1-43.9) fL Plt Count 217 (163-337) K/mm3 MPV 10.8 (9.4-12.3) fl Neut % (Auto) 86.7 H (34.0-67.9) % Lymph % (Auto) 5.0 L (21.8-53.1) % [place] % (Auto) 7.9 (5.3-12.2) % Eos % (Auto) 0 L (0.8-7.0) Baso % (Auto) 0.1 (0.1-1.2) % Neut # (Auto) 10.62 H (1.78-5.38) K/mm3 Lymph # (Auto) 0.61 L (1.32-3.57) K/mm3 [place] # (Auto) 0.97 H (0.30-0.82) K/mm3 Eos # (Auto) 0.00 L (0.04-0.54) K/mm3 Baso # (Auto) 0.01 (0.01-0.08) K/mm3 Manual Slide Review Abnormal smear Sodium (136-145) mEq/L Potassium (3.5-5.1) mEq/L Chloride (98-107) mEq/L Carbon Dioxide (21-32) mEq/L Anion Gap (5-15) BUN (7-18) mg/dL Creatinine (0.7-1.3) mg/dL Est Cr Clr Drug Dosing mL/min Estimated GFR (MDRD) (>60) mL/min BUN/Creatinine Ratio (14-18) Glucose (80-115) mg/dL Lactic Acid 2.4 H (0.4-2.0) mmol/L Calcium (8.5-10.1) mg/dL Magnesium (1.8-2.4) mg/dl C-Reactive Protein (<1.0) mg/dL Mycoplasma pneumon IgM Negative (NEGATIVE) 01/04/17 Range/Units 06:22 WBC (4.23-9.07) K/mm3 RBC (4.63-6.08) M/mm3 Hgb (13.7-17.5) gm/L Hct (40.1-51.0) % MCV (79.0-92.2) fl MCH (25.7-32.2) pg MCHC (32.2-35.5) g/dl RDW Std Deviation (35.1-43.9) fL Plt Count (163-337) K/mm3 MPV (9.4-12.3) fl Neut % (Auto) (34.0-67.9) % Lymph % (Auto) (21.8-53.1) % [place] % (Auto) (5.3-12.2) % Eos % (Auto) (0.8-7.0) Baso % (Auto) (0.1-1.2) % Neut # (Auto) (1.78-5.38) K/mm3 Lymph # (Auto) (1.32-3.57) K/mm3 [place] # (Auto) (0.30-0.82) K/mm3 Eos # (Auto) (0.04-0.54) K/mm3 Baso # (Auto) (0.01-0.08) K/mm3 Manual Slide Review Sodium 131 L (136-145) mEq/L Potassium 3.5 (3.5-5.1) mEq/L Chloride 97 L (98-107) mEq/L Carbon Dioxide 22 (21-32) mEq/L Anion Gap 15.5 H (5-15) BUN 9 (7-18) mg/dL Creatinine 0.7 (0.7-1.3) mg/dL Est Cr Clr Drug Dosing 89.27 mL/min Estimated GFR (MDRD) > 60 (>60) mL/min BUN/Creatinine Ratio 12.9 L (14-18) Glucose 102 (80-115) mg/dL Lactic Acid (0.4-2.0) mmol/L Calcium 8.2 L (8.5-10.1) mg/dL Magnesium 1.6 L (1.8-2.4) mg/dl C-Reactive Protein 36.7 H* (<1.0) mg/dL Mycoplasma pneumon IgM (NEGATIVE) Tenzin Results Last 24 Hours: Microbiology 01/03/17 16:30 Influenza Type A Antigen Screen - Final Nasal, Unspecified NEGATIVE INFLUENZA A VIRUS AG Influenza Type B Antigen Screen - Final NEGATIVE INFLUENZA B VIRUS AG Med Orders - Current: Current Medications Acetaminophen (Tylenol) 650 mg PO Q6H PRN PRN Reason: Fever Last Admin: 01/03/17 17:21 Dose: 650 mg Albuterol (Proventil Neb Soln) 2.5 mg NEB Q4HRRT PRN PRN Reason: Shortness of Breath Albuterol/Ipratropium (Duoneb 3.0-0.5 Mg/3 Ml) 3 ml NEB QID PRN PRN Reason: Shortness of Breath Amlodipine Besylate (Norvasc) 10 mg PO DAILY [facility] Last Admin: 01/04/17 08:56 Dose: 10 mg Cyclobenzaprine HCl (Flexeril) 10 mg PO TID PRN PRN Reason: Muscle Spasm Last Admin: 01/04/17 09:01 Dose: 10 mg Enoxaparin Sodium (Lovenox) 40 mg SUBCUT DAILY [facility] Last Admin: 01/04/17 08:57 Dose: 40 mg Gabapentin (Neurontin) 200 mg PO TID [facility] Last Admin: 01/04/17 08:57 Dose: 200 mg Hydroxychloroquine Sulfate (Plaquenil) 200 mg PO BID [facility] Last Admin: 01/04/17 08:56 Dose: 200 mg Ceftriaxone Sodium 2 gm/ (Sodium Chloride) 100 mls @ 200 mls/hr IV Q24H [facility] Last Admin: 01/04/17 11:09 Dose: 200 mls/hr Levofloxacin/Dextrose 750 mg/ (Premix) 150 mls @ 100 mls/hr IV Q24H [facility] Last Admin: 01/04/17 09:10 Dose: 100 mls/hr Magnesium Sulfate 4 gm/ Premix 100 mls @ 50 mls/hr IV ONETIME ONE Stop: 01/04/17 13:16 Lisinopril (Prinivil) 10 mg PO DAILY [facility] Last Admin: 01/04/17 08:57 Dose: 10 mg Nicotine (Habitrol) 21 mg TRDERM DAILY [facility] Last Admin: 01/04/17 10:38 Dose: 21 mg Oral Electrolytes (Thermotabs) 1 each PO TID [facility] Oxycodone/Acetaminophen (Percocet 325-5 Mg) 1 tab PO Q4H PRN PRN Reason: Pain Last Admin: 01/04/17 06:27 Dose: 1 tab Pantoprazole Sodium (Protonix) 40 mg PO DAILY [facility] Last Admin: 01/04/17 08:56 Dose: 40 mg Polyethylene Glycol (Miralax) 17 gm PO DAILY [facility] Last Admin: 01/04/17 08:59 Dose: 17 gm Senna/Docusate Sodium (Senna Plus) 1 tab PO BID [facility] Last Admin: 01/04/17 08:57 Dose: 1 tab Spironolactone (Aldactone) 25 mg PO DAILY [facility] Last Admin: 01/04/17 08:56 Dose: 25 mg Tamsulosin HCl (Flomax) 0.8 mg PO BEDTIME [facility] Last Admin: 01/03/17 21:30 Dose: 0.8 mg Discontinued Medications Acetaminophen (Tylenol) 975 mg PO NOW ONE Stop: 01/03/17 09:39 Last Admin: 01/03/17 09:54 Dose: 975 mg Hydromorphone HCl (Dilaudid) 0.5 mg IVPUSH ONETIME ONE Stop: 01/03/17 11:50 Last Admin: 01/03/17 11:57 Dose: 0.5 mg Sodium Chloride (Normal Saline) 1,000 mls @ 500 mls/hr IV ASDIRECTED [facility] Last Admin: 01/03/17 09:54 Dose: 500 mls/hr Azithromycin 500 mg/ Sodium (Chloride) 250 mls @ 250 mls/hr IV ONETIME ONE Stop: 01/03/17 13:05 Last Admin: 01/03/17 12:18 Dose: 250 mls/hr Sodium Chloride (Normal Saline) 1,000 mls @ 100 mls/hr IV ASDIRECTED [facility] Last Admin: 01/04/17 09:09 Dose: 100 mls/hr Ondansetron HCl (Zofran) 4 mg IVPUSH ONETIME ONE Stop: 01/03/17 11:50 Last Admin: 01/03/17 11:56 Dose: 4 mg - Exam Quality Assessment: Supplemental Oxygen, DVT Prophylaxis General: Alert, Oriented, Cooperative, No Acute Distress HEENT: Pupils Equal, Pupils Reactive, EOMI Neck: Supple, Trachea Midline Lungs: Normal Respiratory Effort, Decreased Breath Sounds Cardiovascular: Regular Rate, Regular Rhythm GI/Abdominal Exam: Normal Bowel Sounds, Soft, Non-Tender, No Organomegaly, No Distention (Male) Exam: Deferred Back Exam: Normal Inspection Extremities: Normal Inspection Skin: Warm, Dry Neurological: No New Focal Deficit, Normal Gait, Normal Speech Psy/Mental Status: Alert, Normal Affect, Normal Mood - Problem List & Annotations (1) SLE (systemic lupus erythematosus) SNOMED Code(s): 86280475 Code(s): M32.9 - SYSTEMIC LUPUS ERYTHEMATOSUS, UNSPECIFIED Status: Acute Current Visit: Yes (2) GERD with esophagitis SNOMED Code(s): 703240009 Code(s): K21.0 - GASTRO-ESOPHAGEAL REFLUX DISEASE WITH ESOPHAGITIS Status: Acute Current Visit: Yes (3) Tobacco dependence SNOMED Code(s): 30983139 Code(s): F17.200 - NICOTINE DEPENDENCE, UNSPECIFIED, UNCOMPLICATED Status: Acute Current Visit: Yes (4) Obesity (BMI 30.0-34.9) SNOMED Code(s): 683503454 Code(s): E66.9 - OBESITY, UNSPECIFIED Status: Acute Current Visit: Yes (5) Lobar pneumonia, unspecified organism SNOMED Code(s): 029574973 Code(s): J18.1 - LOBAR PNEUMONIA, UNSPECIFIED ORGANISM Status: Acute Current Visit: Yes (6) Hyponatremia SNOMED Code(s): 87649485 Code(s): E87.1 - HYPO-OSMOLALITY AND HYPONATREMIA Status: Acute Current Visit: Yes (7) Hypoxia SNOMED Code(s): 132056481 Code(s): R09.02 - HYPOXEMIA Status: Acute Current Visit: Yes (8) Pneumonia SNOMED Code(s): 460773338 Code(s): J18.9 - PNEUMONIA, UNSPECIFIED ORGANISM Status: Acute Current Visit: Yes Qualifiers: Pneumonia type: due to unspecified organism Laterality: left Lung location: lower lobe of lung Qualified Code(s): J18.1 - Lobar pneumonia, unspecified organism (9) Chronic back pain SNOMED Code(s): 217976682 Code(s): M54.9 - DORSALGIA, UNSPECIFIED; G89.29 - OTHER CHRONIC PAIN Status : Acute Current Visit: No - Problem List Review Problem List Initiated/Reviewed/Updated: Yes - My Orders Last 24 Hours: My Active Orders 01/03/17 15:04 Antiembolic Devices [RC] QSHIFT Acetaminophen/oxyCODONE [Percocet 325-5 MG] 1 tab PO Q4H PRN Cyclobenzaprine [Flexeril] 10 mg PO TID PRN ELA Hose [Antiembolic Hose] [OM.PC] Routine 01/03/17 15:15 Lisinopril [Prinivil] 10 mg PO DAILY 01/03/17 15:17 Code Status [Resuscitation Status] Routine 01/03/17 15:22 Acetaminophen [Tylenol] 650 mg PO Q6H PRN 01/03/17 16:10 Consult to Physical Therapy [PT Evaluation and Treatment] [CONS] Routine 01/03/17 16:11 Consult to Occupational Therapy [OT Evaluation and Treatment] [CONS] Routine 01/03/17 16:12 Consult to Map Plotter [CONS] Routine 01/03/17 17:05 STREP PNEUMONIAE ANTIGEN [MREF] Routine 01/03/17 17:52 RT Aerosol Therapy [RC] ASDIRECTED Albuterol/Ipratropium [DuoNeb 3.0-0.5 MG/3 ML] 3 ml NEB QID PRN 01/03/17 17:53 Albuterol [Proventil Neb Soln] 2.5 mg NEB Q4HRRT PRN 01/03/17 21:00 Docusate Sodium/Sennosides [Senna Plus] 1 tab PO BID Gabapentin [Neurontin] 200 mg PO TID Hydroxychloroquine [Plaquenil] 200 mg PO BID Tamsulosin [Flomax] 0.8 mg PO BEDTIME 01/03/17 Lunch Regular Diet [DIET] 01/04/17 06:36 Activity as Tolerated [RC] .Routine 01/04/17 09:00 Enoxaparin [Lovenox] 40 mg SUBCUT DAILY Levofloxacin/Dextrose 5%-Water [Levaquin in D5W 750 MG/150 ML] 750 mg Premix Bag 1 bag IV Q24H Nicotine [Habitrol] 21 mg TRDERM DAILY Pantoprazole [ProTONIX] 40 mg PO DAILY Polyethylene Glycol 3350 [MiraLAX] 17 gm PO DAILY Spironolactone [Aldactone] 25 mg PO DAILY amLODIPine [Norvasc] 10 mg PO DAILY 01/04/17 11:17 Magnesium Sulfate/Water [Magnesium Sulfate 4 GM in Water 100 ML] 4 gm Premix Bag 1 bag IV ONETIME 01/04/17 13:00 LACTIC ACID [CHEM] Routine 01/04/17 15:00 Potassium Chloride/NaCl [Thermotabs] 1 each PO TID 01/05/17 05:00 BMP [BASIC METABOLIC PANEL,BMP] [CHEM] DAILY CBC WITH AUTO DIFF [HEME] DAILY CRP [C-REACTIVE PROTEIN] [CHEM] DAILY MAGNESIUM [CHEM] DAILY 01/05/17 10:00 CXR [Chest 2V] [CR] Routine 01/06/17 05:00 BMP [BASIC METABOLIC PANEL,BMP] [CHEM] DAILY CBC WITH AUTO DIFF [HEME] DAILY CRP [C-REACTIVE PROTEIN] [CHEM] DAILY MAGNESIUM [CHEM] DAILY 01/07/17 05:00 BMP [BASIC METABOLIC PANEL,BMP] [CHEM] DAILY CBC WITH AUTO DIFF [HEME] DAILY CRP [C-REACTIVE PROTEIN] [CHEM] DAILY MAGNESIUM [CHEM] DAILY - Plan Plan:: Impression: HOD 2 S/P L2-L4 laminectomy; post op, 14 days AMS, resolved after hydration Hypoxia, LLL PNA, cummunity acquired; O2 sat 88% on RA Hyponatremia Hypomagnesemia Febrile illness Chronic HTN SLE Tobacco dependence GERD Obesity, BMI 34.3 Plan: IVF, 0.9NS DC after current bag IV antibiotic Duoneb Habitrol prn O2, keep sat>92% Home meds Daily Labs DVT/GI prophylaxis SW/PT/OT
[2017-01-04] MEDS ORDERED: Aluminum Hydroxide/Magnesium Hydroxide/Simethicone Susp 30 ML Cup PO PRN (12:46)
[2017-01-04] MEDS ORDERED: Simethicone 80 MG Tab.Chew PO PRN (13:45)
[2017-01-04] MEDS: Potassium Chloride/Sodium Chloride Tab PO SCH ×2 (14:43→20:47)
[2017-01-04] MEDS: Acetaminophen Soln 650 MG/20.3 ML UD Cup PO PRN (14:54)
[2017-01-04] MEDS ORDERED: CLOBETASOL PROPIONATE 0.05% TOP PRN (17:55)
[2017-01-04] MEDS ORDERED: FLUOCINOLONE 0.025% PO PRN (17:56)
[2017-01-04] MEDS ORDERED: Lactated Ringers 1,000 ML IV SCH (18:00)
[2017-01-04] MEDS: Tamsulosin 0.4 MG Cap.ER PO SCH (20:48)
[2017-01-05] MEDS: Acetaminophen/oxyCODONE 325-5 MG Tab PO PRN ×4 (01:36→20:13)
[2017-01-05] MEDS: Polyethylene Glycol 3350 Powder 17 GM Packet PO SCH (09:30)
[2017-01-05] MEDS: Nicotine 21 MG/24 Hr Patch TRDERM SCH (09:34)
[2017-01-05] MEDS: Potassium Chloride/Sodium Chloride Tab PO SCH ×3 (09:34→20:13)
[2017-01-05] MEDS: Hydroxychloroquine 200 MG Tab PO SCH ×2 (09:35→20:13)
[2017-01-05] MEDS: Spironolactone 25 MG Tab PO SCH (09:35)
[2017-01-05] MEDS: Pantoprazole 40 MG Tab.CR PO SCH (09:35)
[2017-01-05] MEDS: Enoxaparin 40 MG/0.4 ML Syringe SUBCUT SCH (09:36)
[2017-01-05] MEDS: amLODIPine 10 MG Tab PO SCH (09:36)
[2017-01-05] MEDS: Cyclobenzaprine 10 MG Tab PO PRN (09:36)
[2017-01-05] MEDS: Gabapentin 100 MG Cap PO SCH ×3 (09:36→20:13)
[2017-01-05] MEDS: Levofloxacin/Dextrose 5%-Water 750 MG in Premix Bag 1 BAG IV SCH (09:37)
[2017-01-05] MEDS: Lisinopril 10 MG Tab PO SCH (09:37)
--- NOTE | 2017-01-05 13:11 | PCM.PN ---
- General Info Date of Service: 01/05/17 Subjective Update: Minimal activity, has not walked beyond restroom located in his room. He has been encouraged to increase his activity level. Functional Status: Reports: Tolerating Diet, Ambulating, Urinating - Review of Systems General: Reports: Weakness HEENT: Reports: No Symptoms Pulmonary: Reports: Shortness of Breath Cardiovascular: Reports: No Symptoms Gastrointestinal: Reports: No Symptoms Genitourinary: Reports: No Symptoms Musculoskeletal: Reports: No Symptoms Skin: Reports: No Symptoms Neurological: Reports: No Symptoms Psychiatric: Reports: No Symptoms - Patient Data Vitals - Most Recent: Last Vital Signs Temp 37.6 C 01/05/17 08:04 Pulse 102 H 01/05/17 08:04 Resp 16 01/05/17 08:04 BP 140/94 H 01/05/17 09:37 Pulse Ox 92 L 01/05/17 10:17 Weight - Most Recent: 94.619 kg I&O - Last 24 Hours: Intake & Output 01/04/17 01/05/17 01/05/17 23:59 06:59 14:59 Intake Total Output Total Balance Lab Results Last 24 Hours: Laboratory Results - last 24 hr 01/05/17 01/05/17 Range/Units 05:40 05:40 WBC 10.09 H (4.23-9.07) K/mm3 RBC 3.03 L (4.63-6.08) M/mm3 Hgb 8.6 L (13.7-17.5) gm/L Hct 27.5 L (40.1-51.0) % MCV 90.8 (79.0-92.2) fl MCH 28.4 (25.7-32.2) pg MCHC 31.3 L (32.2-35.5) g/dl RDW Std Deviation 49.9 H (35.1-43.9) fL Plt Count 255 (163-337) K/mm3 MPV 10.7 (9.4-12.3) fl Neut % (Auto) 84.9 H (34.0-67.9) % Lymph % (Auto) 6.8 L (21.8-53.1) % [place] % (Auto) 7.7 (5.3-12.2) % Eos % (Auto) 0.2 L (0.8-7.0) Baso % (Auto) 0.1 (0.1-1.2) % Neut # (Auto) 8.56 H (1.78-5.38) K/mm3 Lymph # (Auto) 0.69 L (1.32-3.57) K/mm3 [place] # (Auto) 0.78 (0.30-0.82) K/mm3 Eos # (Auto) 0.02 L (0.04-0.54) K/mm3 Baso # (Auto) 0.01 (0.01-0.08) K/mm3 Manual Slide Review Abnormal smear Sodium 133 L (136-145) mEq/L Potassium 3.7 (3.5-5.1) mEq/L Chloride 97 L (98-107) mEq/L Carbon Dioxide 25 (21-32) mEq/L Anion Gap 14.7 (5-15) BUN 7 (7-18) mg/dL Creatinine 0.7 (0.7-1.3) mg/dL Est Cr Clr Drug Dosing 89.27 mL/min Estimated GFR (MDRD) > 60 (>60) mL/min BUN/Creatinine Ratio 10.0 L (14-18) Glucose 118 H (80-115) mg/dL Calcium 8.4 L (8.5-10.1) mg/dL Magnesium 2.2 (1.8-2.4) mg/dl C-Reactive Protein 38.3 H* (<1.0) mg/dL Med Orders - Current: Current Medications Acetaminophen (Tylenol) 650 mg PO Q6H PRN PRN Reason: Fever Last Admin: 01/04/17 14:54 Dose: 650 mg Al Hydroxide/Mg Hydroxide (Mag-Al Plus) 30 ml PO Q4H PRN PRN Reason: Heartburn Last Admin: 01/04/17 13:01 Dose: 30 ml Albuterol (Proventil Neb Soln) 2.5 mg NEB Q4HRRT PRN PRN Reason: Shortness of Breath Albuterol/Ipratropium (Duoneb 3.0-0.5 Mg/3 Ml) 3 ml NEB QID PRN PRN Reason: Shortness of Breath Amlodipine Besylate (Norvasc) 10 mg PO DAILY [facility] Last Admin: 01/05/17 09:36 Dose: 10 mg Cyclobenzaprine HCl (Flexeril) 10 mg PO TID PRN PRN Reason: Muscle Spasm Last Admin: 01/05/17 09:36 Dose: 10 mg Enoxaparin Sodium (Lovenox) 40 mg SUBCUT DAILY [facility] Last Admin: 01/05/17 09:36 Dose: 40 mg Gabapentin (Neurontin) 200 mg PO TID [facility] Last Admin: 01/05/17 09:36 Dose: 200 mg Hydroxychloroquine Sulfate (Plaquenil) 200 mg PO BID [facility] Last Admin: 01/05/17 09:35 Dose: 200 mg Levofloxacin/Dextrose 750 mg/ (Premix) 150 mls @ 100 mls/hr IV Q24H [facility] Last Admin: 01/05/17 09:37 Dose: 100 mls/hr Lisinopril (Prinivil) 10 mg PO DAILY [facility] Last Admin: 01/05/17 09:37 Dose: 10 mg Nicotine (Habitrol) 21 mg TRDERM DAILY [facility] Last Admin: 01/05/17 09:34 Dose: 21 mg Clobetasol Propionate 0.05% Topical Soln 50ml Own Med 1 applic TOP BEDTIME PRN PRN Reason: Rash Fluocinolone 0.025% (Cream Own Med ) 1 applic PO BID PRN PRN Reason: Rash Oral Electrolytes (Thermotabs) 1 each PO TID [facility] Last Admin: 01/05/17 09:34 Dose: 1 each Oxycodone/Acetaminophen (Percocet 325-5 Mg) 1 tab PO Q4H PRN PRN Reason: Pain Last Admin: 01/05/17 09:37 Dose: 1 tab Pantoprazole Sodium (Protonix) 40 mg PO DAILY [facility] Last Admin: 01/05/17 09:35 Dose: 40 mg Polyethylene Glycol (Miralax) 17 gm PO DAILY [facility] Last Admin: 01/05/17 09:30 Dose: Not Given Senna/Docusate Sodium (Senna Plus) 1 tab PO BID [facility] Last Admin: 01/05/17 09:35 Dose: 1 tab Simethicone (Simethicone) 80 mg PO Q6H PRN PRN Reason: Indigestion Spironolactone (Aldactone) 25 mg PO DAILY [facility] Last Admin: 01/05/17 09:35 Dose: 25 mg Tamsulosin HCl (Flomax) 0.8 mg PO BEDTIME [facility] Last Admin: 01/04/17 20:48 Dose: 0.8 mg Discontinued Medications Acetaminophen (Tylenol) 975 mg PO NOW ONE Stop: 01/03/17 09:39 Last Admin: 01/03/17 09:54 Dose: 975 mg Hydromorphone HCl (Dilaudid) 0.5 mg IVPUSH ONETIME ONE Stop: 01/03/17 11:50 Last Admin: 01/03/17 11:57 Dose: 0.5 mg Sodium Chloride (Normal Saline) 1,000 mls @ 500 mls/hr IV ASDIRECTED [facility] Last Admin: 01/03/17 09:54 Dose: 500 mls/hr Ceftriaxone Sodium 2 gm/ (Sodium Chloride) 100 mls @ 200 mls/hr IV Q24H [facility] Last Admin: 01/04/17 11:09 Dose: 200 mls/hr Azithromycin 500 mg/ Sodium (Chloride) 250 mls @ 250 mls/hr IV ONETIME ONE Stop: 01/03/17 13:05 Last Admin: 01/03/17 12:18 Dose: 250 mls/hr Sodium Chloride (Normal Saline) 1,000 mls @ 100 mls/hr IV ASDIRECTED [facility] Last Admin: 01/04/17 09:09 Dose: 100 mls/hr Magnesium Sulfate 4 gm/ Premix 100 mls @ 50 mls/hr IV ONETIME ONE Stop: 01/04/17 13:16 Last Admin: 01/04/17 12:34 Dose: 50 mls/hr Lactated Ringer's (Ringers, Lactated) 750 mls @ 125 mls/hr IV ASDIRECTED [facility] Stop: 01/04/17 23:59 Last Admin: 01/04/17 18:16 Dose: 125 mls/hr Ondansetron HCl (Zofran) 4 mg IVPUSH ONETIME ONE Stop: 01/03/17 11:50 Last Admin: 01/03/17 11:56 Dose: 4 mg - Exam Quality Assessment: Supplemental Oxygen, DVT Prophylaxis General: Alert, Oriented, Cooperative, No Acute Distress HEENT: Pupils Equal, Pupils Reactive, EOMI Neck: Supple, Trachea Midline, No JVD Lungs: Normal Respiratory Effort, Decreased Breath Sounds Cardiovascular: Regular Rate, Tachycardia GI/Abdominal Exam: Normal Bowel Sounds, Soft, Non-Tender, No Organomegaly, No Distention (Male) Exam: Deferred Back Exam: Normal Inspection Extremities: Normal Inspection Skin: Warm Neurological: No New Focal Deficit Psy/Mental Status: Alert, Normal Affect, Normal Mood - Problem List & Annotations (1) SLE (systemic lupus erythematosus) SNOMED Code(s): 22410341 Code(s): M32.9 - SYSTEMIC LUPUS ERYTHEMATOSUS, UNSPECIFIED Status: Acute Current Visit: Yes (2) GERD with esophagitis SNOMED Code(s): 994076476 Code(s): K21.0 - GASTRO-ESOPHAGEAL REFLUX DISEASE WITH ESOPHAGITIS Status: Acute Current Visit: Yes (3) Tobacco dependence SNOMED Code(s): 05569265 Code(s): F17.200 - NICOTINE DEPENDENCE, UNSPECIFIED, UNCOMPLICATED Status: Acute Current Visit: Yes (4) Obesity (BMI 30.0-34.9) SNOMED Code(s): 915563564 Code(s): E66.9 - OBESITY, UNSPECIFIED Status: Acute Current Visit: Yes (5) Lobar pneumonia, unspecified organism SNOMED Code(s): 613864838 Code(s): J18.1 - LOBAR PNEUMONIA, UNSPECIFIED ORGANISM Status: Acute Current Visit: Yes (6) Hyponatremia SNOMED Code(s): 80153261 Code(s): E87.1 - HYPO-OSMOLALITY AND HYPONATREMIA Status: Acute Current Visit: Yes (7) Hypoxia SNOMED Code(s): 622624739 Code(s): R09.02 - HYPOXEMIA Status: Acute Current Visit: Yes (8) Pneumonia SNOMED Code(s): 363159068 Code(s): J18.9 - PNEUMONIA, UNSPECIFIED ORGANISM Status: Acute Current Visit: Yes Qualifiers: Pneumonia type: due to unspecified organism Laterality: left Lung location: lower lobe of lung Qualified Code(s): J18.1 - Lobar pneumonia, unspecified organism (9) Chronic back pain SNOMED Code(s): 659706822 Code(s): M54.9 - DORSALGIA, UNSPECIFIED; G89.29 - OTHER CHRONIC PAIN Status : Acute Current Visit: No - Problem List Review Problem List Initiated/Reviewed/Updated: Yes - My Orders Last 24 Hours: My Active Orders 01/04/17 13:45 Simethicone 80 mg PO Q6H PRN 01/04/17 15:00 Potassium Chloride/NaCl [Thermotabs] 1 each PO TID 01/04/17 17:55 Clobetasol Propionate 1 applic TOP BEDTIME PRN 01/04/17 17:56 Fluocinolone/Emol Cmb#65 [Synalar 0.025% Cream Kit] 1 applic PO BID PRN 01/05/17 09:00 Patient Status [ADT] Routine 01/05/17 10:00 CXR [Chest 2V] [CR] Routine 01/05/17 18:00 HEMOGLOBIN [HEME] Routine 01/06/17 05:00 BMP [BASIC METABOLIC PANEL,BMP] [CHEM] DAILY CBC WITH AUTO DIFF [HEME] DAILY CRP [C-REACTIVE PROTEIN] [CHEM] DAILY MAGNESIUM [CHEM] DAILY 01/07/17 05:00 BMP [BASIC METABOLIC PANEL,BMP] [CHEM] DAILY CBC WITH AUTO DIFF [HEME] DAILY CRP [C-REACTIVE PROTEIN] [CHEM] DAILY MAGNESIUM [CHEM] DAILY - Plan Plan:: Impression: HOD 2 S/P L2-L4 laminectomy AMS, resolved after hydration Hypoxia, LLL PNA, community acquired; O2 sat 88% on RA Hyponatremia Hypomagnesemia Febrile illness Chronic HTN SLE Tobacco dependence GERD Obesity, BMI 34.3 Plan: IVF, 0.9NS DC after current bag IV antibiotic Duoneb Habitrol prn O2, keep sat>92%; check O2 requirements pre DC Start low dose steroids, taper as tolerated. Home meds Daily Labs DVT/GI prophylaxis SW/PT/OT
[2017-01-05] MEDS: methylPREDNISolone Sodium Succinate 125 MG/2 ML SDV IVPUSH SCH ×2 (14:19→20:30)
[2017-01-05] MEDS: Tamsulosin 0.4 MG Cap.ER PO SCH (20:13)
[2017-01-05] MEDS ORDERED: Temazepam 15 MG Cap PO PRN (23:53)
[2017-01-06] MEDS: Cyclobenzaprine 10 MG Tab PO PRN (00:09)
[2017-01-06] MEDS: methylPREDNISolone Sodium Succinate 125 MG/2 ML SDV IVPUSH SCH ×2 (04:36→13:04)
--- NOTE | 2017-01-06 07:40 | CR ---
Chest: Two views of the chest were obtained. Comparison: Prior chest x-ray of 01/03/17. Diffuse left lung infiltrate is seen within the left upper lobe/lingula. Right lung is clear. Heart size is normal. Tortuous thoracic aorta is seen. Degenerative spurring is noted within the spine. Impression: 1. Diffuse left lung infiltrate which appears somewhat more prominent than on prior exam. Uncertain how much of this represents actual worsening of infection versus pseudo-worsening due to better hydration. 2. Other portions of the chest are stable. Diagnostic code #5 Agree with preliminary report issued by [facility] ([facility] preliminary report dictated on 01/05/17, 9:54 AM Central Time)
[2017-01-06] MEDS: Lisinopril 10 MG Tab PO SCH (09:08)
[2017-01-06] MEDS: Hydroxychloroquine 200 MG Tab PO SCH (09:08)
[2017-01-06] MEDS: Pantoprazole 40 MG Tab.CR PO SCH (09:08)
[2017-01-06] MEDS: Gabapentin 100 MG Cap PO SCH (09:08)
[2017-01-06] MEDS: amLODIPine 10 MG Tab PO SCH (09:09)
[2017-01-06] MEDS: Enoxaparin 40 MG/0.4 ML Syringe SUBCUT SCH (09:09)
[2017-01-06] MEDS: Potassium Chloride/Sodium Chloride Tab PO SCH (09:09)
[2017-01-06] MEDS: Spironolactone 25 MG Tab PO SCH (09:09)
[2017-01-06] MEDS: Nicotine 21 MG/24 Hr Patch TRDERM SCH (09:10)
[2017-01-06] MEDS: Levofloxacin/Dextrose 5%-Water 750 MG in Premix Bag 1 BAG IV SCH (09:10)
[2017-01-06] MEDS: Polyethylene Glycol 3350 Powder 17 GM Packet PO SCH (09:10)
[2017-01-06] MEDS: Acetaminophen/oxyCODONE 325-5 MG Tab PO PRN (11:59)
[2017-01-06 12:01] VITALS: BP 124/62
--- NOTE | 2017-01-06 12:27 | PCM.DCSUM1 ---
Discharge Summary - Hospital Course Free Text/Narrative:: 66-year-old male presents to the ED with acute onset of delirium associated with high fever and chills/rigors. Apparently illness started suddenly about 2300 hrs. last night and persisted throughout the night. He is very confused and disoriented at times according to his . Stating things that don't make sense or are untrue. No nausea vomiting or diarrhea. He has regained function of his bowls since he's had L-spine surgery. He had a lumbar laminectomy and bilateral medial facetectomy from L2-L4 due to severe spinal stenosis. It was carried out on [address] Graham at [facility] in [place]. His lisa are due to be removed today. The isn't sure but she believes he may have had a [place] catheter in for a day postop. He she knows that he's been voiding almost every hour all night long. Urine is dark color. No order. He is a smoker of a pack per day and apparently fell 2 days before surgery with contusion to the left rib cage with no fractures identified but possible pulmonary contusion. At the time my examination he is quite confused and his asked answer most of the questions. He is very warm to palpation and the nurse reports temperature 102.6. Last received ibuprofen about 2000 hrs. last night. Has been off of his narcotics for 4 days. Pain is being treated with Tylenol and ibuprofen. Hospitalist service is consulted for admission for lt sided pneumonia, hyponatremia and hypomagnesemia. Patient is admitted, hydrated, treated with IV abx of Levaquin daily x 3 days, IV solumedrol and aggressive pulmonary treatments. He improved significantly. Fevers resolved. WBC normalized from 16.5 on admit to 4.6 on day of discharge. CRP improved from 39 at time of admission. Sodium was 130 on admission, he required thermotabs TID with improvements of sodium to 135 on day of discharge. He will be discharged on Thermotabs x 5 days with instructions to f/up with PCP within 5-7 days with recheck of BMP/Na at that time. Magnesium corrected and maintained. He worked with PT/OT/RT. Blood cultures were negative as were flu screen and mycoplasma. D. Dimer was elevated in the ED at 2.3. CT angiogram was obtained and negative for PE but did show left sided pneumonia. Repeat CXR was stable the day prior to discharge. He was kept on nicotine patch and will be discharged with this for nicotine dependence. Smoking cessation was discussed and recommended. He was maintained on supplemental oxygen and weaned prior to discharge with oxygen saturations >92%. He will be discharged with levaquin PO x 7 more days and PO prednisone taper. - Discharge Data Discharge Date: 01/06/17 Discharge Disposition: Home, Self-Care 01 Condition: Good - Discharge Diagnosis/Problem(s) (1) Pneumonia SNOMED Code(s): 567888063 ICD Code: J18.9 - PNEUMONIA, UNSPECIFIED ORGANISM Status: Acute Priority : High Current Visit: Yes Qualifiers: Pneumonia type: due to unspecified organism Laterality: left Lung location: lower lobe of lung Qualified Code(s): J18.1 - Lobar pneumonia, unspecified organism (2) Hyponatremia SNOMED Code(s): 94697935 ICD Code: E87.1 - HYPO-OSMOLALITY AND HYPONATREMIA Status: Chronic Priority: Medium Current Visit: Yes (3) SLE (systemic lupus erythematosus) SNOMED Code(s): 61136215 ICD Code: M32.9 - SYSTEMIC LUPUS ERYTHEMATOSUS, UNSPECIFIED Status: Chronic Priority: Medium Current Visit: Yes Qualifiers: Systemic lupus erythematosus type: unspecified Systemic lupus erythematosus organ involvement: unspecified Qualified Code(s): M32.9 - Systemic lupus erythematosus, unspecified (4) Tobacco dependence SNOMED Code(s): 14673464 ICD Code: F17.200 - NICOTINE DEPENDENCE, UNSPECIFIED, UNCOMPLICATED Status : Chronic Priority: High Current Visit: Yes (5) Obesity (BMI 30.0-34.9) SNOMED Code(s): 431983013 ICD Code: E66.9 - OBESITY, UNSPECIFIED Status: Chronic Priority: Medium Current Visit: Yes (6) Hypoxia SNOMED Code(s): 567017924 ICD Code: R09.02 - HYPOXEMIA Status: Resolved Priority: High Current Visit: Yes (7) Hypomagnesemia SNOMED Code(s): 021303795 ICD Code: E83.42 - HYPOMAGNESEMIA Status: Resolved Priority: High Current Visit: Yes - Patient Summary/Data Operative Procedure(s) Performed: None Complications: None Consults: Consultations 01/03/17 16:10 Consult to Physical Therapy [PT Evaluation and Treatment] [CONS] Routine 01/03/17 16:11 Consult to Occupational Therapy [OT Evaluation and Treatment] [CONS] Routine 01/03/17 16:12 Consult to Directory Carrier [CONS] Routine Labs Pending at D/C: None; recommend recheck of BMP; sodium, at follow up visit with PCP within 5-7 days. Recommended Follow-up Testing/Procedures: Patient DC instructions: Follow up with PCP within 5-7 days of discharge; recommend recheck of electrolytes, sodium, at that time. Antibiotic and oral steroid as directed for pneumonia; discuss with PCP if recommend repeat chest xray in 2 weeks to assure resolution of left sided pneumonia Ambulate 3-4 times daily, continue to use incentive spirometry at home every 2 hours while awake. Planned Operative Procedure(s) after DC: None Hospital Course: As above - Patient Instructions Diet: Heart Healthy Diet, Usual Diet as Tolerated Activity: As Tolerated Showering/Bathing: May Shower Notify Provider of: Fever, Increased Pain, Swelling and Redness, Nausea and/or Vomiting (worsening of cough, shortness of breath) - Discharge Plan Prescriptions/Med Rec: Levofloxacin [Levaquin] 750 mg PO DAILY #7 tablet Lisinopril [Prinivil] 10 mg PO DAILY #30 tablet Nicotine [Habitrol] 21 mg TRDERM DAILY #30 patch Potassium Chloride/NaCl [Thermotabs] 1 each PO TID #15 tablet Prednisone [IJD: Prednisone] 10 mg PO DAILY #30 tab Home Medications: Home Meds Pantoprazole Sodium [Protonix] 40 mg PO DAILY 07/22/16 [History] Clobetasol Propionate [Temovate] 1 applic TOP BEDTIME PRN 01/03/17 [History] Cyclobenzaprine [Flexeril] 10 mg PO TID PRN 01/03/17 [History] Fluocinolone/Emol Cmb#65 [Synalar 0.025% Cream Kit] 1 applic PO BID PRN [History] Gabapentin [Neurontin] 200 mg PO TID 01/03/17 [History] Hydroxychloroquine [Plaquenil] 200 mg PO BID 01/03/17 [History] Ibuprofen 200 - 600 mg PO TID PRN 01/03/17 [History] Polyethylene Glycol [Polyox Wsr-[id number]] 1 dose PO DAILY 01/03/17 [History] Sennosides/Docusate Sodium [Senna-Docusate Sodium] 1 tab PO BID 01/03/17 [ History] Spironolactone [Aldactone] 25 mg PO DAILY 01/03/17 [History] Tamsulosin [Flomax] 0.8 mg PO BEDTIME 01/03/17 [History] amLODIPine [Norvasc] 10 mg PO DAILY 01/03/17 [History] oxyCODONE HCl/Acetaminophen [Percocet 10-325 mg Tablet] 1 tab PO Q2H PRN [History] Levofloxacin [Levaquin] 750 mg PO DAILY #7 tablet 01/06/17 [Rx] Lisinopril [Prinivil] 10 mg PO DAILY #30 tablet 01/06/17 [Rx] Nicotine [Habitrol] 21 mg TRDERM DAILY #30 patch 01/06/17 [Rx] Potassium Chloride/NaCl [Thermotabs] 1 each PO TID #15 tablet 01/06/17 [Rx] Prednisone [IJD: Prednisone] 10 mg PO DAILY #30 tab 01/06/17 [Rx] Patient Handouts: Smoking Cessation, Tips for Success, [id number], Smoking Hazards, Systemic Lupus Erythematosus, Adult, Obesity, Community-Acquired Pneumonia, Adult, [id number] Referrals: Sydney Guevara [Physician] - - Discharge Summary/Plan Comment DC Time >30 min.: Yes (40 min) - General Info Date of Service: 01/06/17 Admission Dx/Problem (Free Text: Admission Diagnosis/Problem Admission Diagnosis/Problem Fever Lt sided pneumonia Patient doing much better, weaned from oxygen. Anxious for DC home today. Functional Status: Reports: Pain Controlled, Tolerating Diet, Ambulating, Urinating, Incentive Spirometry. Denies: New Symptoms - Review of Systems General: Reports: No Symptoms HEENT: Reports: No Symptoms Pulmonary: Reports: Cough, Sputum Cardiovascular: Reports: No Symptoms Gastrointestinal: Reports: No Symptoms Genitourinary: Reports: No Symptoms Musculoskeletal: Reports: No Symptoms Skin: Reports: No Symptoms Neurological: Reports: No Symptoms Psychiatric: Reports: No Symptoms - Patient Data Vitals - Most Recent: Last Vital Signs Temp 99.0 F 01/06/17 11:03 Pulse 93 01/06/17 11:59 Resp 19 01/06/17 11:03 BP 124/62 01/06/17 11:03 Pulse Ox 95 01/06/17 11:59 Weight - Most Recent: 204 lb 14.4 oz I&O - Last 24 hours: Intake & Output 01/05/17 01/06/17 01/06/17 22:59 06:59 14:59 Intake Total 1150 800 180 Balance 1150 800 180 Lab Results - Last 24 hrs: Laboratory Results - last 24 hr 01/05/17 01/06/17 01/06/17 Range/Units 17:55 06:15 06:15 WBC 4.63 (4.23-9.07) K/mm3 RBC 3.15 L (4.63-6.08) M/mm3 Hgb 8.7 L 9.2 L (13.7-17.5) gm/L Hct 28.5 L (40.1-51.0) % MCV 90.5 (79.0-92.2) fl MCH 29.2 (25.7-32.2) pg MCHC 32.3 (32.2-35.5) g/dl RDW Std Deviation 48.9 H (35.1-43.9) fL Plt Count 273 (163-337) K/mm3 MPV 10.5 (9.4-12.3) fl Neut % (Auto) 87.7 H (34.0-67.9) % Lymph % (Auto) 8.2 L (21.8-53.1) % [place] % (Auto) 3.7 L (5.3-12.2) % Eos % (Auto) 0 L (0.8-7.0) Baso % (Auto) 0.2 (0.1-1.2) % Neut # (Auto) 4.06 (1.78-5.38) K/mm3 Lymph # (Auto) 0.38 L (1.32-3.57) K/mm3 [place] # (Auto) 0.17 L (0.30-0.82) K/mm3 Eos # (Auto) 0.00 L (0.04-0.54) K/mm3 Baso # (Auto) 0.01 (0.01-0.08) K/mm3 Manual Slide Review Abnormal smear Sodium 135 L (136-145) mEq/L Potassium 4.2 (3.5-5.1) mEq/L Chloride 99 (98-107) mEq/L Carbon Dioxide 27 (21-32) mEq/L Anion Gap 13.2 (5-15) BUN 10 (7-18) mg/dL Creatinine 0.7 (0.7-1.3) mg/dL Est Cr Clr Drug Dosing 89.27 mL/min Estimated GFR (MDRD) > 60 (>60) mL/min BUN/Creatinine Ratio 14.3 (14-18) Glucose 154 H (80-115) mg/dL Calcium 8.9 (8.5-10.1) mg/dL Magnesium 2.3 (1.8-2.4) mg/dl C-Reactive Protein 28.2 H* (<1.0) mg/dL Med Orders - Current: Current Medications Acetaminophen (Tylenol) 650 mg PO Q6H PRN PRN Reason: Fever Last Admin: 01/04/17 14:54 Dose: 650 mg Al Hydroxide/Mg Hydroxide (Mag-Al Plus) 30 ml PO Q4H PRN PRN Reason: Heartburn Last Admin: 01/04/17 13:01 Dose: 30 ml Albuterol (Proventil Neb Soln) 2.5 mg NEB Q4HRRT PRN PRN Reason: Shortness of Breath Albuterol/Ipratropium (Duoneb 3.0-0.5 Mg/3 Ml) 3 ml NEB QID PRN PRN Reason: Shortness of Breath Amlodipine Besylate (Norvasc) 10 mg PO DAILY [facility] Last Admin: 01/06/17 09:09 Dose: Not Given Cyclobenzaprine HCl (Flexeril) 10 mg PO TID PRN PRN Reason: Muscle Spasm Last Admin: 01/06/17 00:09 Dose: 10 mg Enoxaparin Sodium (Lovenox) 40 mg SUBCUT DAILY [facility] Last Admin: 01/06/17 09:09 Dose: 40 mg Gabapentin (Neurontin) 200 mg PO TID [facility] Last Admin: 01/06/17 09:08 Dose: 200 mg Hydroxychloroquine Sulfate (Plaquenil) 200 mg PO BID [facility] Last Admin: 01/06/17 09:08 Dose: 200 mg Levofloxacin/Dextrose 750 mg/ (Premix) 150 mls @ 100 mls/hr IV Q24H [facility] Last Admin: 01/06/17 09:10 Dose: 100 mls/hr Lisinopril (Prinivil) 10 mg PO DAILY [facility] Last Admin: 01/06/17 09:08 Dose: Not Given Methylprednisolone Sodium Succinate (Solu-Medrol) 80 mg IVPUSH Q8H [facility] Last Admin: 01/06/17 04:36 Dose: 80 mg Nicotine (Habitrol) 21 mg TRDERM DAILY [facility] Last Admin: 01/06/17 09:10 Dose: 21 mg Clobetasol Propionate 0.05% Topical Soln 50ml Own Med 1 applic TOP BEDTIME PRN PRN Reason: Rash Fluocinolone 0.025% (Cream Own Med ) 1 applic PO BID PRN PRN Reason: Rash Oral Electrolytes (Thermotabs) 1 each PO TID [facility] Last Admin: 01/06/17 09:09 Dose: 1 each Oxycodone/Acetaminophen (Percocet 325-5 Mg) 1 tab PO Q4H PRN PRN Reason: Pain Last Admin: 01/06/17 11:59 Dose: 1 tab Pantoprazole Sodium (Protonix) 40 mg PO DAILY [facility] Last Admin: 01/06/17 09:08 Dose: 40 mg Polyethylene Glycol (Miralax) 17 gm PO DAILY [facility] Last Admin: 01/06/17 09:10 Dose: Not Given Senna/Docusate Sodium (Senna Plus) 1 tab PO BID [facility] Last Admin: 01/06/17 09:08 Dose: 1 tab Simethicone (Simethicone) 80 mg PO Q6H PRN PRN Reason: Indigestion Spironolactone (Aldactone) 25 mg PO DAILY [facility] Last Admin: 01/06/17 09:09 Dose: 25 mg Tamsulosin HCl (Flomax) 0.8 mg PO BEDTIME [facility] Last Admin: 01/05/17 20:13 Dose: 0.8 mg Temazepam (Restoril) 15 mg PO BEDTIME PRN PRN Reason: Sleep Last Admin: 01/06/17 00:09 Dose: 15 mg Discontinued Medications Acetaminophen (Tylenol) 975 mg PO NOW ONE Stop: 01/03/17 09:39 Last Admin: 01/03/17 09:54 Dose: 975 mg Hydromorphone HCl (Dilaudid) 0.5 mg IVPUSH ONETIME ONE Stop: 01/03/17 11:50 Last Admin: 01/03/17 11:57 Dose: 0.5 mg Sodium Chloride (Normal Saline) 1,000 mls @ 500 mls/hr IV ASDIRECTED [facility] Last Admin: 01/03/17 09:54 Dose: 500 mls/hr Ceftriaxone Sodium 2 gm/ (Sodium Chloride) 100 mls @ 200 mls/hr IV Q24H [facility] Last Admin: 01/04/17 11:09 Dose: 200 mls/hr Azithromycin 500 mg/ Sodium (Chloride) 250 mls @ 250 mls/hr IV ONETIME ONE Stop: 01/03/17 13:05 Last Admin: 01/03/17 12:18 Dose: 250 mls/hr Sodium Chloride (Normal Saline) 1,000 mls @ 100 mls/hr IV ASDIRECTED [facility] Last Admin: 01/04/17 09:09 Dose: 100 mls/hr Magnesium Sulfate 4 gm/ Premix 100 mls @ 50 mls/hr IV ONETIME ONE Stop: 01/04/17 13:16 Last Admin: 01/04/17 12:34 Dose: 50 mls/hr Lactated Ringer's (Ringers, Lactated) 750 mls @ 125 mls/hr IV ASDIRECTED [facility] Stop: 01/04/17 23:59 Last Admin: 01/04/17 18:16 Dose: 125 mls/hr Ondansetron HCl (Zofran) 4 mg IVPUSH ONETIME ONE Stop: 01/03/17 11:50 Last Admin: 01/03/17 11:56 Dose: 4 mg - Exam Quality Assessment: Reports: DVT Prophylaxis General: Reports: Alert, Oriented, Cooperative, No Acute Distress HEENT: Reports: Pupils Equal, EOMI, Mucous Membr. Moist/[place] Neck: Reports: Supple Lungs: Reports: Clear to Auscultation, Normal Respiratory Effort Cardiovascular: Reports: Regular Rate, Regular Rhythm GI/Abdominal Exam: Normal Bowel Sounds, Soft, Non-Tender (Male) Exam: Deferred Rectal (Males) Exam: Deferred Extremities: Normal Inspection, Normal Capillary Refill Neurological: Reports: No New Focal Deficit Psy/Mental Status: Reports: Alert, Normal Affect, Normal Mood *Q Meaningful Use (DIS) - VTE *Q VTE Criteria *Q: - Stroke *Q Stroke Criteria *Q: - AMI *Q AMI Criteria *Q:
== END 2017-01-06 13:47 | disposition home or self-care (01) | DRG 194 ==
LOC: JD.ED 09:05 → UNDOADMIN 11:29 → JD.MS 11:29
PROVIDERS: ADMIT Internal Medicine Cardiovascular Disease; ATTEND Internal Medicine Cardiovascular Disease
DX: J18.9 Pneumonia, unspecified organism (principal); E87.1 Hypo-osmolality and hyponatremia; E83.42 Hypomagnesemia; R09.02 Hypoxemia; M32.9 Systemic lupus erythematosus, unspecified; K21.0 Gastro-esophageal reflux disease with esophagitis; F17.210 Nicotine dependence, cigarettes, uncomplicated; K21.9 Gastro-esophageal reflux disease without esophagitis; E66.9 Obesity, unspecified; Z68.30 Body mass index [BMI] 30.0-30.9, adult; Z68.34 Body mass index [BMI] 34.0-34.9, adult; G89.29 Other chronic pain; M54.9 Dorsalgia, unspecified; I11.0 Hypertensive heart disease with heart failure; I50.9 Heart failure, unspecified; Z88.6 Allergy status to analgesic agent; Z79.899 Other long term (current) drug therapy
CPT/HCPCS: 36415; 71010; 71250; 80053; 81001; 83605; 83735; 83880; 84484; 85025; 85379; 86140; 87040 ×2; 93005; 96361; 96365; 96375; 99285; A9270; J0696; J1170; J2405; J7030; J7040; 71020; 71020-26; 80048; 85018; 86738; 87804; 87899; 93010; 94667; 94761; 97110-GP; 97116-GP; 97162-GP; 97165-GO; 97530-GO; J0456; J1650; J1956; J2930; J3475; J7050; J7120

== ENCOUNTER 2017-02-14 13:01 | Emergency (ER) | payer MEDICARE ==
[2017-02-14 13:31] VITALS: BP 150/85
--- NOTE | 2017-02-14 14:21 | EDM.PDOC ---
ED HPI GENERAL MEDICAL PROBLEM - General Chief Complaint: Upper Extremity Injury/Pain Stated Complaint: PAIN IN SHOULDER AND RASH Time Seen by Provider: 02/14/17 13:28 Source of Information: Reports: Patient History Limitations: Reports: No Limitations - History of Present Illness INITIAL COMMENTS - FREE TEXT/NARRATIVE: The patient is a 66-year-old male with a chief complaint of right chest and shoulder and back pain. He states that he is currently being treated for pneumonia that he thinks is on the left lung. He is still on Levaquin. He has 3 days left of this. Starting yesterday he started getting discomfort in his chest. He states that it is associated with coughing and deep inspiration. He feels mildly short of breath. No fever. No significant change in his cough. However he also started to notice a rash on the back and front of his chest. It' s a bit painful and itchy. There is no provoking factor. No history of similar symptoms. No abdominal pain or vomiting. No stuffy nose or sore throat. No lower extremity pain or swelling. Right Shoulder Pain Score (Numeric/FACES): 8 - Related Data Allergies Allergy/AdvReac Type Severity Reaction Status Date / Time morphine Allergy Anxiety Verified 02/14/17 13:31 Home Meds: Home Meds Pantoprazole Sodium [Protonix] 40 mg PO DAILY 07/22/16 [History] Clobetasol Propionate [Temovate] 1 applic TOP BEDTIME PRN 01/03/17 [History] Cyclobenzaprine [Flexeril] 10 mg PO TID PRN 01/03/17 [History] Fluocinolone/Emol Cmb#65 [Synalar 0.025% Cream Kit] 1 applic PO BID PRN [History] Gabapentin [Neurontin] 200 mg PO TID 01/03/17 [History] Hydroxychloroquine [Plaquenil] 200 mg PO BID 01/03/17 [History] Ibuprofen 200 - 600 mg PO TID PRN 01/03/17 [History] Polyethylene Glycol [Polyox Wsr-301] 1 dose PO DAILY 01/03/17 [History] Sennosides/Docusate Sodium [Senna-Docusate Sodium] 1 tab PO BID 01/03/17 [ History] Spironolactone [Aldactone] 25 mg PO DAILY 01/03/17 [History] Tamsulosin [Flomax] 0.8 mg PO BEDTIME 01/03/17 [History] amLODIPine [Norvasc] 10 mg PO DAILY 01/03/17 [History] oxyCODONE HCl/Acetaminophen [Percocet 10-325 mg Tablet] 1 tab PO Q2H PRN [History] Levofloxacin [Levaquin] 750 mg PO DAILY #7 tablet 01/06/17 [Rx] Lisinopril [Prinivil] 10 mg PO DAILY #30 tablet 01/06/17 [Rx] Nicotine [Habitrol] 21 mg TRDERM DAILY #30 patch 01/06/17 [Rx] Potassium Chloride/NaCl [Thermotabs] 1 each PO TID #15 tablet 01/06/17 [Rx] Prednisone [IJD: Prednisone] 10 mg PO DAILY #30 tab 01/06/17 [Rx] valACYclovir [Valtrex] 1,000 mg PO TID #30 tablet 02/14/17 [Rx] Past Medical History HEENT History: Reports: Impaired Vision Other HEENT History: glasses Cardiovascular History: Reports: Hypertension Gastrointestinal History: Reports: Colon Polyp, GERD Musculoskeletal History: Reports: Arthritis, Back Pain, Chronic Other Musculoskeletal History: Back surgery Endocrine/Metabolic History: Reports: Obesity/BMI 30+ Immunologic History: Reports: SLE Dermatologic History: Reports: Other (See Below) Other Dermatologic History: Les - Infectious Disease History Infectious Disease History: Reports: Other (See Below) - Past Surgical History HEENT Surgical History: Reports: Oral Surgery, Tonsillectomy Neurological Surgical History: Reports: Laminectomy, Lumbar Spine Musculoskeletal Surgical History: Reports: Knee Replacement, Shoulder Surgery Social & Family History - Family History Family Medical History: Noncontributory - Tobacco Use Smoking Status *Q: Current Every Day Smoker Years of Tobacco use: 50 Packs/Tins Daily: 1 Used Tobacco, but Quit: No - Caffeine Use Caffeine Use: Reports: Coffee - Recreational Drug Use Recreational Drug Use: No - Living Situation & Occupation Living situation: Reports: , with Spouse, with Family (Daughter, 2 grandchildren) Occupation: Retired Review of Systems - Review of Systems Review Of Systems: See Below Constitutional: Reports: Chills. Denies: Fever Eyes: Reports: No Symptoms Ears: Reports: No Symptoms Nose: Reports: No Symptoms Mouth/Throat: Reports: No Symptoms Respiratory: Reports: Shortness of Breath, Cough Cardiovascular: Reports: Chest Pain GI/Abdominal: Reports: No Symptoms Musculoskeletal: Reports: Shoulder Pain Skin: Reports: Rash Neurological: Reports: No Symptoms ED EXAM, GENERAL - Physical Exam Exam: See Below Exam Limited By: No Limitations General Appearance: Alert, WD/WN, No Apparent Distress Eye Exam: Bilateral Eye: Normal Inspection, PERRL Ears: Normal External Exam Nose: Normal Inspection Throat/Mouth: Normal Inspection, Normal Oropharynx, Normal Voice Head: Atraumatic, Normocephalic Neck: Normal Inspection, Supple Respiratory/Chest: No Respiratory Distress, No Accessory Muscle Use. No: Rhonchi, Wheezing, Prolonged Expiration Cardiovascular: Normal Peripheral Pulses, Regular Rate, Rhythm, No Edema, No Murmur GI/Abdominal: Soft, Non-Tender, No Distention Back Exam: Other (Patient has a zoster-like rash in T5 distribution both anterior and posterior chest wall and a slight amount of upper arm involvement. It is erythematous, confluent, with few scattered vesicular lesions.) Extremities: Normal Inspection Neurological: Alert, Oriented, Normal Cognition, No Motor/Sensory Deficits Psychiatric: Normal Affect, Normal Mood Skin Exam: Warm, Dry, Intact, Normal Color, No Rash Course - Vital Signs Last Recorded V/S: Last Vital Signs Temp 37.0 C 02/14/17 13:27 Pulse 100 02/14/17 13:27 Resp 18 02/14/17 13:27 BP 150/85 H 02/14/17 13:27 Pulse Ox 93 L 02/14/17 13:27 - Orders/Labs/Meds Orders: Active Orders 24 hr Category Date Time Status EKG 12 Lead [EKG Documentation Completion] [RC] STAT Care 02/14/17 14:16 Active Labs: Laboratory Tests 02/14/17 02/14/17 Range/Units 15:40 15:40 WBC 4.65 (4.23-9.07) K/mm3 RBC 3.59 L (4.63-6.08) M/mm3 Hgb 10.6 L (13.7-17.5) gm/L Hct 32.4 L (40.1-51.0) % MCV 90.3 (79.0-92.2) fl MCH 29.5 (25.7-32.2) pg MCHC 32.7 (32.2-35.5) g/dl RDW Std Deviation 51.4 H (35.1-43.9) fL Plt Count 171 (163-337) K/mm3 MPV 10.4 (9.4-12.3) fl Neut % (Auto) 73.3 H (34.0-67.9) % Lymph % (Auto) 12.5 L (21.8-53.1) % [place] % (Auto) 12.5 H (5.3-12.2) % Eos % (Auto) 1.1 (0.8-7.0) Baso % (Auto) 0.4 (0.1-1.2) % Neut # (Auto) 3.41 (1.78-5.38) K/mm3 Lymph # (Auto) 0.58 L (1.32-3.57) K/mm3 [place] # (Auto) 0.58 (0.30-0.82) K/mm3 Eos # (Auto) 0.05 (0.04-0.54) K/mm3 Baso # (Auto) 0.02 (0.01-0.08) K/mm3 Sodium 135 L (136-145) mEq/L Potassium 3.2 L (3.5-5.1) mEq/L Chloride 99 (98-107) mEq/L Carbon Dioxide 27 (21-32) mEq/L Anion Gap 12.2 (5-15) BUN 9 (7-18) mg/dL Creatinine 0.8 (0.7-1.3) mg/dL Est Cr Clr Drug Dosing 78.11 mL/min Estimated GFR (MDRD) > 60 (>60) mL/min BUN/Creatinine Ratio 11.3 L (14-18) Glucose 101 (80-115) mg/dL Calcium 9.4 (8.5-10.1) mg/dL Total Bilirubin 0.3 (0.2-1.0) mg/dL AST 23 (15-37) U/L ALT 18 (16-63) U/L Alkaline Phosphatase 56 (46-116) U/L Troponin I < 0.017 (0.00-0.056) ng/mL Total Protein 6.9 (6.4-8.2) g/dl Albumin 3.1 L (3.4-5.0) g/dl Globulin 3.8 gm/dL Albumin/Globulin Ratio 0.8 L (1-2) Meds: Medications Discontinued Medications Generic Name Dose Route Start Last Admin Trade Name Brenda PRN Reason Stop Dose Admin Valacyclovir HCl 1,000 mg 02/14/17 16:18 02/14/17 16:29 Valtrex PO 02/14/17 16:19 1,000 mg ONETIME ONE Administration - Re-Assessments/Exams Free Text/Narrative Re-Assessment/Exam: 02/14/17 14:20 Exam consistent with zoster, will treat. However he also has deep or pleuritic pain, extensive smoking history, and some cough and shortness of breath. So we will get a chest x-ray and basic labs to evaluate this as well. He does not meet any SIRS criteria at this time. 02/15/17 10:20 Chest x-ray shows small area of pneumonia on the left lung that is similar to prior. There is no new areas of infection on the right lung. I do suspect patient's pain and symptoms may be due to zoster alone. We'll treat. Departure - Departure Time of Disposition: 16:19 Disposition: Home, Self-Care 01 Clinical Impression: Zoster Qualifiers: Herpes zoster complications: without complications Qualified Code(s): B02.9 - Zoster without complications - Discharge Information Prescriptions: valACYclovir [Valtrex] 1,000 mg PO TID #30 tablet Instructions: Shingles, [id number] Referrals: PCP,Not In Area [Primary Care Provider] - Forms: ED Department Discharge Additional Instructions: 1. Take valacyclovir as prescribed 2. Take ibuprofen as needed for pain 3. Your blood counts today show that you are mildly anemic. Your hemoglobin is 10.6. Follow up with your primary doctor for further care. 4. Return to the ED if you have difficulty breathing, fever, or any other concerning symptoms. - My Orders Last 24 Hours: My Active Orders 02/14/17 14:16 EKG 12 Lead [EKG Documentation Completion] [RC] STAT - Assessment/Plan Last 24 Hours: My Active Orders 02/14/17 14:16 EKG 12 Lead [EKG Documentation Completion] [RC] STAT
--- NOTE | 2017-02-14 15:04 | CR ---
Chest: Two views of the chest were obtained. Comparison: Prior chest x-ray of 01/05/17. Previous left lung pneumonia shows improvement but not complete resolution on current exam. Right lung is clear. Heart size is normal. Tortuous thoracic aorta is seen. Left shoulder prosthesis noted. Mild degenerative change is noted within the spine. Compression deformity is seen within the mid thoracic spine which appears stable. Impression: 1. Improved density within the left chest but findings have not completely resolved. 2. Other incidental findings. Nothing acute is otherwise seen. Diagnostic code #3
[2017-02-14] MEDS ORDERED: valACYclovir 500 MG Tab PO ONE (16:18)
== END 2017-02-14 16:34 | disposition home or self-care (01) ==
LOC: JD.ED 13:01
DX: B02.9 Zoster without complications (principal); I10 Essential (primary) hypertension; E66.9 Obesity, unspecified; Z79.899 Other long term (current) drug therapy; Z88.5 Allergy status to narcotic agent
CPT/HCPCS: 36415; 71020; 80053; 84484; 85025; 93005; 99283; A9270

== ENCOUNTER 2017-07-06 10:27 | Inpatient (IN) | payer MEDICARE ==
[2017-07-06] MEDS ORDERED: Acetaminophen 325 MG Tab PO ONE (10:51)
[2017-07-06] MEDS ORDERED: Acetaminophen 325 MG Tab ONE (10:52)
[2017-07-06] MEDS ORDERED: Sodium Chloride 0.9% 10 ML Syringe FLUSH PRN (10:55)
--- NOTE | 2017-07-06 10:59 | EDM.PDOC ---
ED HPI GENERAL MEDICAL PROBLEM - General Chief Complaint: Respiratory Problem Stated Complaint: COUGH Time Seen by Provider: 07/06/17 10:58 Source of Information: Reports: Patient History Limitations: Reports: No Limitations - History of Present Illness INITIAL COMMENTS - FREE TEXT/NARRATIVE: Bhavin is a 66yo male presents to ED ambulatory accompanied by . He has had 3 wks of cough and "cold". Grandkids and other familiy members have been ill with similar symptoms but have all improved/resolved. The past 3-4 days his cough has worsened acutely with yellow sputum production, yesterday he developed fever with chills, overnight the chills became worse to the point of shaking chills. He is now shaking and chilled. Temp now is 104. He is coughing, dry and hacky now. No n/v/d. Denies chest pain, palpitations or racing heart rates, he denies being SOB but appears SOB. He is hypoxic in the mid 80's, supplemental oxygen is applied. He has 50 pack year hx with 1ppd x 50 years. He was hospitalized in January for Pneumonia. At that time he had a chest CT showing emphysematous changes and LLL PNA. PMH: Lupus, HTN, GERD, hx of pneumonia, chronic LBP, nicotine dependence. PCP is Dr. Strange with [facility]. Onset: Gradual Duration: Week(s): (3+ weeks; worsening cough x 4 days, fever and shaking chills x 2 days) Location: Reports: Chest Improves with: Reports: None Worsens with: Reports: None Associated Symptoms: Reports: Cough, cough w sputum, Diaphoresis, Fever/Chills, Headaches, Malaise, Shortness of Breath. Denies: Confusion, Chest Pain, Loss of Appetite, Nausea/Vomiting Generalized Pain Score (Numeric/FACES): 5 - Related Data Allergies Allergy/AdvReac Type Severity Reaction Status Date / Time morphine Allergy Anxiety Verified 07/06/17 10:44 Home Meds: Home Meds Pantoprazole Sodium [Protonix] 40 mg PO DAILY 07/22/16 [History] Clobetasol Propionate [Temovate Oint] 1 applic TOP BEDTIME PRN 01/03/17 [History ] Fluocinolone/Emol Comb No.65 [Synalar 0.025% Cream Kit] 1 applic PO BID PRN 05/17 [History] Gabapentin [Neurontin] 900 mg PO TID 01/03/17 [History] Hydroxychloroquine [Plaquenil] 200 mg PO DAILY 01/03/17 [History] Ibuprofen 200 - 600 mg PO TID PRN 01/03/17 [History] Polyethylene Glycol [Polyox Wsr-301] 1 dose PO DAILY 01/03/17 [History] Sennosides/Docusate Sodium [Senna-Docusate Sodium] 1 tab PO BID 01/03/17 [ History] Spironolactone [Aldactone] 25 mg PO DAILY 01/03/17 [History] Tamsulosin [Flomax] 0.8 mg PO BEDTIME 01/03/17 [History] amLODIPine [Norvasc] 10 mg PO DAILY 01/03/17 [History] oxyCODONE HCl/Acetaminophen [Percocet 10-325 mg Tablet] 1 tab PO Q2H PRN [History] Lisinopril [Prinivil] 10 mg PO DAILY #30 tablet 01/06/17 [Rx] Nicotine [Habitrol] 21 mg TRDERM DAILY #30 patch 01/06/17 [Rx] Past Medical History HEENT History: Reports: Impaired Vision Other HEENT History: glasses Cardiovascular History: Reports: Hypertension Gastrointestinal History: Reports: Colon Polyp, GERD Musculoskeletal History: Reports: Arthritis, Back Pain, Chronic Other Musculoskeletal History: Back surgery Endocrine/Metabolic History: Reports: Obesity/BMI 30+ Immunologic History: Reports: SLE Dermatologic History: Reports: Other (See Below) Other Dermatologic History: Les - Infectious Disease History Infectious Disease History: Reports: Shingles - Past Surgical History HEENT Surgical History: Reports: Oral Surgery, Tonsillectomy Neurological Surgical History: Reports: Laminectomy, Lumbar Spine Musculoskeletal Surgical History: Reports: Knee Replacement, Shoulder Surgery Social & Family History - Family History Family Medical History: Noncontributory - Tobacco Use Smoking Status *Q: Current Every Day Smoker Years of Tobacco use: 50 Packs/Tins Daily: 1 Used Tobacco, but Quit: No - Caffeine Use Caffeine Use: Reports: Coffee - Recreational Drug Use Recreational Drug Use: No - Living Situation & Occupation Living situation: Reports: , with Spouse, with Family (Daughter, 2 grandchildren) Occupation: Retired [facility] [facility] - Review of Systems Review Of Systems: See Below Constitutional: Reports: Fever, Chills, Malaise, Weakness, Fatigue, Diaphoresis HEENT: Reports: No Symptoms Respiratory: Reports: Shortness of Breath, Cough, Sputum Cardiovascular: Reports: Dyspnea on Exertion. Denies: Chest Pain, Edema, Lightheadedness, Palpitations GI/Abdominal: Reports: No Symptoms, Other (periumbilical hernia--denies pain or concerns/complaints ) : Reports: No Symptoms Musculoskeletal: Reports: No Symptoms Neurological: Reports: Dizziness, Headache Psychiatric: Reports: No Symptoms ED EXAM, GENERAL - Physical Exam Exam: See Below Exam Limited By: Other (shaking chills) General Appearance: Alert, WD/WN, Moderate Distress Eye Exam: Bilateral Eye: EOMI, PERRL Ears: Normal External Exam, Other ([place]) Nose: Normal Inspection Throat/Mouth: Normal Inspection, Normal Lips, Normal Oropharynx, Normal Voice, No Airway Compromise Head: Atraumatic, Normocephalic Neck: Normal Inspection Respiratory/Chest: No Respiratory Distress, No Accessory Muscle Use, Decreased Breath Sounds, Rhonchi, Wheezing Cardiovascular: Regular Rate, Rhythm, No Murmur Peripheral Pulses: 2+: Posterior Tibial (L), Posterior Tibial (R), Dorsalis Pedis (L), Dorsalis Pedis (R) GI/Abdominal: Normal Bowel Sounds, Soft, Non-Tender, Hernia (soft periumbilical hernia, nontender; does not hurt with palpation) (Male) Exam: Deferred Rectal (Males) Exam: Deferred Back Exam: Normal Inspection, Other (surgical scar to low back) Extremities: Normal Inspection, Normal Range of Motion, Pedal Edema (trace bilat ankles) Neurological: Alert, Oriented, Normal Cognition Psychiatric: Normal Affect, Normal Mood, Anxious Skin Exam: Warm, Dry, Intact Lymphatic: No Adenopathy EKG INTERPRETATION EKG Date: 07/06/17 Time: 11:16 Rhythm: Other (sinus tachycardia) Rate (Beats/Min): 107 Comparison: NA - No Prior EKG EKG Interpretation Comments: reviewed [facility] Dr. Piña Course - Vital Signs Last Recorded V/S: Last Vital Signs Temp 104.6 F H 07/06/17 10:53 Pulse 117 H 07/06/17 10:38 Resp 22 H 07/06/17 10:38 BP 164/70 H 07/06/17 10:38 Pulse Ox 90 L 07/06/17 10:38 - Orders/Labs/Meds Orders: Active Orders 24 hr Category Date Time Status Admission Status [Patient Status] [ADT] Routine ADT 07/06/17 12:40 Ordered EKG Documentation Completion [RC] STAT Care 07/06/17 11:11 Active Oxygen Therapy [RC] ASDIRECTED Care 07/06/17 11:12 Active Peripheral IV Care [RC] . DIRECTED Care 07/06/17 10:57 Active RT Aerosol Therapy [RC] ASDIRECTED Care 07/06/17 11:14 Active Chest 2V [CR] Stat Exams 07/06/17 11:15 Ordered CULTURE BLOOD [BC] Stat Lab 07/06/17 10:45 Received CULTURE BLOOD [BC] Stat Lab 07/06/17 11:20 Received INFLUENZA A+B AG SCREEN [RM] Stat Lab 07/06/17 11:33 Ordered PRO B-TYPE NATRIUR PEPT,BNPPRO [CHEM] Stat Lab 07/06/17 10:45 Received RESPIRATORY PANEL BY PCR [MREF] Stat Lab 07/06/17 11:15 Ordered RESPIRATORY PANEL BY PCR [MREF] Stat Lab 07/06/17 11:41 Ordered STREP PNEUMONIAE ANTIGEN [MREF] Stat Lab 07/06/17 10:59 Ordered Magnesium Sulfate/Water [Magnesium Sulfate 2 GM in Med 07/06/17 12:26 Active Water 50 ML] 2 gm Premix Bag 1 bag IV ONETIME Sodium Chloride 0.9% [Saline Flush] Med 07/06/17 10:55 Active 10 ml FLUSH ASDIRECTED PRN Peripheral IV Insertion Adult [OM.PC] Stat Oth 07/06/17 10:57 Ordered Medication Orders Magnesium Sulfate 2 gm/ Premix 50 mls @ 25 mls/hr IV ONETIME ONE Stop: 07/06/17 14:25 Sodium Chloride (Saline Flush) 10 ml FLUSH ASDIRECTED PRN PRN Reason: Keep Vein Open Last Admin: 07/06/17 11:06 Dose: 10 ml Labs: Laboratory Tests 07/06/17 07/06/17 07/06/17 Range/Units 10:45 10:45 10:45 WBC 17.47 H (4.23-9.07) K/mm3 RBC 3.37 L (4.63-6.08) M/mm3 Hgb 10.1 L (13.7-17.5) gm/L Hct 31.2 L (40.1-51.0) % MCV 92.6 H (79.0-92.2) fl MCH 30.0 (25.7-32.2) pg MCHC 32.4 (32.2-35.5) g/dl RDW Std Deviation 50.0 H (35.1-43.9) fL Plt Count 235 (163-337) K/mm3 MPV 11.0 (9.4-12.3) fl Neut % (Auto) 89.7 H (34.0-67.9) % Lymph % (Auto) 3.9 L (21.8-53.1) % [place] % (Auto) 5.7 (5.3-12.2) % Eos % (Auto) 0.4 L (0.8-7.0) Baso % (Auto) 0.1 (0.1-1.2) % Neut # (Auto) 15.67 H (1.78-5.38) K/mm3 Lymph # (Auto) 0.68 L (1.32-3.57) K/mm3 [place] # (Auto) 0.99 H (0.30-0.82) K/mm3 Eos # (Auto) 0.07 (0.04-0.54) K/mm3 Baso # (Auto) 0.02 (0.01-0.08) K/mm3 Manual Slide Review Abnormal smear Sodium 131 L (136-145) mEq/L Potassium 4.2 (3.5-5.1) mEq/L Chloride 95 L (98-107) mEq/L Carbon Dioxide 23 (21-32) mEq/L Anion Gap 17.2 H (5-15) BUN 16 (7-18) mg/dL Creatinine 1.1 (0.7-1.3) mg/dL Est Cr Clr Drug Dosing 54.60 mL/min Estimated GFR (MDRD) > 60 (>60) mL/min BUN/Creatinine Ratio 14.5 (14-18) Glucose 98 (80-115) mg/dL Lactic Acid (0.4-2.0) mmol/L Calcium 9.0 (8.5-10.1) mg/dL Magnesium 1.7 L (1.8-2.4) mg/dl Total Bilirubin 0.5 (0.2-1.0) mg/dL AST 7 L (15-37) U/L ALT 14 L (16-63) U/L Alkaline Phosphatase 60 (46-116) U/L Troponin I (0.00-0.056) ng/mL C-Reactive Protein 18.5 H* (<1.0) mg/dL Total Protein 7.6 (6.4-8.2) g/dl Albumin 3.1 L (3.4-5.0) g/dl Globulin 4.5 gm/dL Albumin/Globulin Ratio 0.7 L (1-2) Mycoplasma pneumon IgM Negative (NEGATIVE) 07/06/17 07/06/17 Range/Units 10:45 11:20 WBC (4.23-9.07) K/mm3 RBC (4.63-6.08) M/mm3 Hgb (13.7-17.5) gm/L Hct (40.1-51.0) % MCV (79.0-92.2) fl MCH (25.7-32.2) pg MCHC (32.2-35.5) g/dl RDW Std Deviation (35.1-43.9) fL Plt Count (163-337) K/mm3 MPV (9.4-12.3) fl Neut % (Auto) (34.0-67.9) % Lymph % (Auto) (21.8-53.1) % [place] % (Auto) (5.3-12.2) % Eos % (Auto) (0.8-7.0) Baso % (Auto) (0.1-1.2) % Neut # (Auto) (1.78-5.38) K/mm3 Lymph # (Auto) (1.32-3.57) K/mm3 [place] # (Auto) (0.30-0.82) K/mm3 Eos # (Auto) (0.04-0.54) K/mm3 Baso # (Auto) (0.01-0.08) K/mm3 Manual Slide Review Sodium (136-145) mEq/L Potassium (3.5-5.1) mEq/L Chloride (98-107) mEq/L Carbon Dioxide (21-32) mEq/L Anion Gap (5-15) BUN (7-18) mg/dL Creatinine (0.7-1.3) mg/dL Est Cr Clr Drug Dosing mL/min Estimated GFR (MDRD) (>60) mL/min BUN/Creatinine Ratio (14-18) Glucose (80-115) mg/dL Lactic Acid 0.8 (0.4-2.0) mmol/L Calcium (8.5-10.1) mg/dL Magnesium (1.8-2.4) mg/dl Total Bilirubin (0.2-1.0) mg/dL AST (15-37) U/L ALT (16-63) U/L Alkaline Phosphatase (46-116) U/L Troponin I < 0.017 (0.00-0.056) ng/mL C-Reactive Protein (<1.0) mg/dL Total Protein (6.4-8.2) g/dl Albumin (3.4-5.0) g/dl Globulin gm/dL Albumin/Globulin Ratio (1-2) Mycoplasma pneumon IgM (NEGATIVE) Meds: Medications Generic Name Dose Route Start Last Admin Trade Name Brenda PRN Reason Stop Dose Admin Magnesium Sulfate 2 gm/ Premix 50 mls @ 25 mls/hr 07/06/17 12:26 IV 07/06/17 14:25 ONETIME ONE Sodium Chloride 10 ml 07/06/17 10:55 07/06/17 11:06 Saline Flush FLUSH 10 ml ASDIRECTED PRN Administration Keep Vein Open Discontinued Medications Generic Name Dose Route Start Last Admin Trade Name Brenda PRN Reason Stop Dose Admin Acetaminophen 975 mg 07/06/17 10:51 07/06/17 10:53 Tylenol PO 07/06/17 10:52 975 mg NOW ONE Administration Acetaminophen Confirm 07/06/17 10:52 07/06/17 11:06 Tylenol Administered 07/06/17 10:53 Not Given Dose 975 mg .ROUTE .STK-MED ONE Albuterol/Ipratropium 3 ml 07/06/17 11:14 07/06/17 11:24 Duoneb 3.0-0.5 Mg/3 Ml NEB 07/06/17 11:15 3 ml ONETIME ONE Administration Azithromycin 500 mg/ Sodium 250 mls @ 250 mls/hr 07/06/17 11:12 07/06/17 11: 45 Chloride IV 07/06/17 12:11 250 mls/hr ONETIME ONE Administration Ceftriaxone Sodium 2 gm/ 100 mls @ 100 mls/hr 07/06/17 11:12 07/06/17 11:24 Sodium Chloride IV 07/06/17 12:11 100 mls/hr ONETIME ONE Administration Sodium Chloride 1,000 mls @ 999 mls/hr 07/06/17 11:13 07/06/17 11:24 Normal Saline IV 07/06/17 12:13 999 mls/hr ONETIME ONE Administration - Radiology Interpretation Free Text/Narrative:: 2 view chest shows RUL PNA and probable RLL PNA based on lateral view. Awaiting radiologist final interp. - Re-Assessments/Exams Free Text/Narrative Re-Assessment/Exam: 07/06/17 12:28 Xray with PNA, clinically this is PNA, hypoxia and fever. Sepsis is a risk. LA, BC drawn. IV zithromax and Rocephin ordered. WBC is 17, CRP is elevated. Will discuss with Hospitalist for admission. Free Text/Narrative Re-Assessment/Exam: 07/06/17 12:[address] Colon, she agrees to admission for PNA, MST unit. Departure - Departure Time of Disposition: 12:42 Disposition: Admitted As Inpatient 68 Condition: Fair Clinical Impression: Lobar pneumonia, unspecified organism - Discharge Information Referrals: Calixto Strange MD [Primary Care Provider] - Forms: ED Department Discharge - My Orders Last 24 Hours: My Active Orders 07/06/17 10:45 PRO B-TYPE NATRIUR PEPT,BNPPRO [CHEM] Stat 07/06/17 10:59 STREP PNEUMONIAE ANTIGEN [MREF] Stat 07/06/17 11:11 EKG Documentation Completion [RC] STAT 07/06/17 11:12 Oxygen Therapy [RC] ASDIRECTED 07/06/17 11:14 RT Aerosol Therapy [RC] ASDIRECTED 07/06/17 11:15 Chest 2V [CR] Stat RESPIRATORY PANEL BY PCR [MREF] Stat 07/06/17 11:33 INFLUENZA A+B AG SCREEN [RM] Stat 07/06/17 11:41 RESPIRATORY PANEL BY PCR [MREF] Stat 07/06/17 12:26 Magnesium Sulfate/Water [Magnesium Sulfate 2 GM in Water 50 ML] 2 gm Premix Bag 1 bag IV ONETIME 07/06/17 12:40 Admission Status [Patient Status] [ADT] Routine - Assessment/Plan Last 24 Hours: My Active Orders 07/06/17 10:45 PRO B-TYPE NATRIUR PEPT,BNPPRO [CHEM] Stat 07/06/17 10:59 STREP PNEUMONIAE ANTIGEN [MREF] Stat 07/06/17 11:11 EKG Documentation Completion [RC] STAT 07/06/17 11:12 Oxygen Therapy [RC] ASDIRECTED 07/06/17 11:14 RT Aerosol Therapy [RC] ASDIRECTED 07/06/17 11:15 Chest 2V [CR] Stat RESPIRATORY PANEL BY PCR [MREF] Stat 07/06/17 11:33 INFLUENZA A+B AG SCREEN [RM] Stat 07/06/17 11:41 RESPIRATORY PANEL BY PCR [MREF] Stat 07/06/17 12:26 Magnesium Sulfate/Water [Magnesium Sulfate 2 GM in Water 50 ML] 2 gm Premix Bag 1 bag IV ONETIME 07/06/17 12:40 Admission Status [Patient Status] [ADT] Routine
[2017-07-06] MEDS ORDERED: Azithromycin 500 MG in Sodium Chloride 0.9% 250 ML IV ONE (11:12)
[2017-07-06] MEDS ORDERED: cefTRIAXone 2 GM in Sodium Chloride 0.9% 100 ML IV ONE (11:12)
[2017-07-06] MEDS ORDERED: Sodium Chloride 0.9% 1,000 ML IV ONE (11:13)
[2017-07-06] MEDS ORDERED: Albuterol/Ipratropium 3.0-0.5 MG/3 ML Neb Soln NEB ONE (11:14)
[2017-07-06] MEDS ORDERED: Magnesium Sulfate/Water 2 GM in Premix Bag 1 BAG IV ONE (12:26)
--- NOTE | 2017-07-06 13:52 | PCM.HP ---
H&P History of Present Illness - General Date of Service: 07/06/17 Admit Problem/Dx: Admission Diagnosis/Problem Admission Diagnosis/Problem Pneumonia Source of Information: Patient, Provider History Limitations: Reports: No Limitations - History of Present Illness Initial Comments - Free Text/Narative: The patient is a 66 year old male on immune suppressants with a PMH of SLE, additionally he has been on opioids for back pain. He presents with a 3-4 day episodes of cough, productive with yellow sputum. He has had a fever with shaking chills one day [employer]. Overall he has been feeling run down with a persistent cold for 3 weeks. There have multiple occasions for sick contacts with family members. A CXR reveals a LLL PNA superimposed on emphysematous changes. He has received zithromax/rocephin in the ED. The patient will be admitted to [facility] with telemetry. Onset of Symptoms: Reports: Gradual Symptom Onset Date: 06/21/17 Duration of Symptoms: Reports: Week(s):, Getting Worse Location: Reports: Chest, Generalized Quality: Reports: Same as Previous Episode Severity: Moderate Improves with: Reports: Medication Worsens with: Reports: None Context: Reports: Sick Contact Associated Symptoms: Reports: Chest Pain, cough w sputum, Fever/Chills, Loss of Appetite, Malaise, Nausea/Vomiting, Shortness of Breath, Weakness Generalized Pain Score (Numeric/FACES): 5 - Related Data Allergies/Adverse Reactions: Allergies Allergy/AdvReac Type Severity Reaction Status Date / Time morphine Allergy Anxiety Verified 07/06/17 10:44 Home Medications: Home Meds Pantoprazole Sodium [Protonix] 40 mg PO DAILY 07/22/16 [History] Clobetasol Propionate [Temovate Oint] 1 applic TOP BEDTIME PRN 01/03/17 [History ] Fluocinolone/Emol Comb No.65 [Synalar 0.025% Cream Kit] 1 applic PO BID PRN 05/17 [History] Gabapentin [Neurontin] 900 mg PO TID 01/03/17 [History] Hydroxychloroquine [Plaquenil] 200 mg PO DAILY 01/03/17 [History] Ibuprofen 200 - 600 mg PO TID PRN 01/03/17 [History] Polyethylene Glycol [Polyox Wsr-301] 1 dose PO DAILY 01/03/17 [History] Sennosides/Docusate Sodium [Senna-Docusate Sodium] 1 tab PO BID 01/03/17 [ History] Spironolactone [Aldactone] 25 mg PO DAILY 01/03/17 [History] Tamsulosin [Flomax] 0.8 mg PO BEDTIME 01/03/17 [History] amLODIPine [Norvasc] 10 mg PO DAILY 01/03/17 [History] oxyCODONE HCl/Acetaminophen [Percocet 10-325 mg Tablet] 1 tab PO Q2H PRN [History] Lisinopril [Prinivil] 10 mg PO DAILY #30 tablet 01/06/17 [Rx] Nicotine [Habitrol] 21 mg TRDERM DAILY #30 patch 01/06/17 [Rx] Past Medical History HEENT History: Reports: Impaired Vision Other HEENT History: glasses Cardiovascular History: Reports: Hypertension Gastrointestinal History: Reports: Colon Polyp, GERD Musculoskeletal History: Reports: Arthritis, Back Pain, Chronic Other Musculoskeletal History: Back surgery Endocrine/Metabolic History: Reports: Obesity/BMI 30+ Immunologic History: Reports: SLE Dermatologic History: Reports: Other (See Below) Other Dermatologic History: Les - Infectious Disease History Infectious Disease History: Reports: Shingles - Past Surgical History HEENT Surgical History: Reports: Oral Surgery, Tonsillectomy Neurological Surgical History: Reports: Laminectomy, Lumbar Spine Musculoskeletal Surgical History: Reports: Knee Replacement, Shoulder Surgery Social & Family History - Family History Family Medical History: Noncontributory - Tobacco Use Smoking Status *Q: Current Every Day Smoker Years of Tobacco use: 50 Packs/Tins Daily: 1 Used Tobacco, but Quit: No - Caffeine Use Caffeine Use: Reports: Coffee - Recreational Drug Use Recreational Drug Use: No - Living Situation & Occupation Living situation: Reports: , with Spouse, with Family (Daughter, 2 grandchildren) Occupation: Retired H&P Review of Systems - Review of Systems: Review Of Systems: See Below General: Reports: Fever, Chills, Malaise, Weakness, Diaphoresis HEENT: Reports: No Symptoms Pulmonary: Reports: Shortness of Breath, Wheezing, Pleuritic Chest Pain, Cough, Sputum Cardiovascular: Reports: No Symptoms Gastrointestinal: Reports: Decreased Appetite Genitourinary: Reports: No Symptoms Musculoskeletal: Reports: No Symptoms Skin: Reports: No Symptoms Psychiatric: Reports: No Symptoms Neurological: Reports: No Symptoms Hematologic/Lymphatic: Reports: No Symptoms Immunologic: Reports: No Symptoms Exam - Exam Exam: See Below - Vital Signs Vital Signs: Last Vital Signs Temp 40.3 C H 07/06/17 10:53 Pulse 117 H 07/06/17 10:38 Resp 22 H 07/06/17 10:38 BP 164/70 H 07/06/17 10:38 Pulse Ox 90 L 07/06/17 10:38 Weight: 81.647 kg - Exam Quality Assessment: Supplemental Oxygen, DVT Prophylaxis General: Alert, Oriented, Cooperative HEENT: Conjunctiva Clear, Nares Patent, Normal Nasal Septum, Pupils Equal, Pupils Reactive, PERRLA Neck: Trachea Midline Lungs: Normal Respiratory Effort, Decreased Breath Sounds, Rhonchi, Wheezing Cardiovascular: Regular Rate, Regular Rhythm GI/Abdominal Exam: Normal Bowel Sounds, Soft, Non-Tender, No Organomegaly, No Distention (Male) Exam: Deferred Rectal (Males) Exam: Deferred Back Exam: Normal Inspection Extremities: Normal Inspection, Non-Tender, Slow Capillary Refill Skin: Warm Neurological: Cranial Nerves Intact Neuro Extensive - Mental Status: Alert, Oriented x3, Normal Mood/Affect, Normal Cognition, Memory Intact Neuro Extensive - Motor, Sensory, Reflexes: CN II-XII Intact Psychiatric: Alert, Normal Affect, Normal Mood - Patient Data Lab Results Last 24 hrs: Laboratory Results - last 24 hr 07/06/17 07/06/17 07/06/17 Range/Units 10:45 10:45 10:45 WBC 17.47 H (4.23-9.07) K/mm3 RBC 3.37 L (4.63-6.08) M/mm3 Hgb 10.1 L (13.7-17.5) gm/L Hct 31.2 L (40.1-51.0) % MCV 92.6 H (79.0-92.2) fl MCH 30.0 (25.7-32.2) pg MCHC 32.4 (32.2-35.5) g/dl RDW Std Deviation 50.0 H (35.1-43.9) fL Plt Count 235 (163-337) K/mm3 MPV 11.0 (9.4-12.3) fl Neut % (Auto) 89.7 H (34.0-67.9) % Lymph % (Auto) 3.9 L (21.8-53.1) % [place] % (Auto) 5.7 (5.3-12.2) % Eos % (Auto) 0.4 L (0.8-7.0) Baso % (Auto) 0.1 (0.1-1.2) % Neut # (Auto) 15.67 H (1.78-5.38) K/mm3 Lymph # (Auto) 0.68 L (1.32-3.57) K/mm3 [place] # (Auto) 0.99 H (0.30-0.82) K/mm3 Eos # (Auto) 0.07 (0.04-0.54) K/mm3 Baso # (Auto) 0.02 (0.01-0.08) K/mm3 Manual Slide Review Abnormal smear Sodium 131 L (136-145) mEq/L Potassium 4.2 (3.5-5.1) mEq/L Chloride 95 L (98-107) mEq/L Carbon Dioxide 23 (21-32) mEq/L Anion Gap 17.2 H (5-15) BUN 16 (7-18) mg/dL Creatinine 1.1 (0.7-1.3) mg/dL Est Cr Clr Drug Dosing 54.60 mL/min Estimated GFR (MDRD) > 60 (>60) mL/min BUN/Creatinine Ratio 14.5 (14-18) Glucose 98 (80-115) mg/dL Lactic Acid (0.4-2.0) mmol/L Calcium 9.0 (8.5-10.1) mg/dL Magnesium 1.7 L (1.8-2.4) mg/dl Total Bilirubin 0.5 (0.2-1.0) mg/dL AST 7 L (15-37) U/L ALT 14 L (16-63) U/L Alkaline Phosphatase 60 (46-116) U/L Troponin I (0.00-0.056) ng/mL C-Reactive Protein 18.5 H* (<1.0) mg/dL Total Protein 7.6 (6.4-8.2) g/dl Albumin 3.1 L (3.4-5.0) g/dl Globulin 4.5 gm/dL Albumin/Globulin Ratio 0.7 L (1-2) Mycoplasma pneumon IgM Negative (NEGATIVE) 07/06/17 07/06/17 Range/Units 10:45 11:20 WBC (4.23-9.07) K/mm3 RBC (4.63-6.08) M/mm3 Hgb (13.7-17.5) gm/L Hct (40.1-51.0) % MCV (79.0-92.2) fl MCH (25.7-32.2) pg MCHC (32.2-35.5) g/dl RDW Std Deviation (35.1-43.9) fL Plt Count (163-337) K/mm3 MPV (9.4-12.3) fl Neut % (Auto) (34.0-67.9) % Lymph % (Auto) (21.8-53.1) % [place] % (Auto) (5.3-12.2) % Eos % (Auto) (0.8-7.0) Baso % (Auto) (0.1-1.2) % Neut # (Auto) (1.78-5.38) K/mm3 Lymph # (Auto) (1.32-3.57) K/mm3 [place] # (Auto) (0.30-0.82) K/mm3 Eos # (Auto) (0.04-0.54) K/mm3 Baso # (Auto) (0.01-0.08) K/mm3 Manual Slide Review Sodium (136-145) mEq/L Potassium (3.5-5.1) mEq/L Chloride (98-107) mEq/L Carbon Dioxide (21-32) mEq/L Anion Gap (5-15) BUN (7-18) mg/dL Creatinine (0.7-1.3) mg/dL Est Cr Clr Drug Dosing mL/min Estimated GFR (MDRD) (>60) mL/min BUN/Creatinine Ratio (14-18) Glucose (80-115) mg/dL Lactic Acid 0.8 (0.4-2.0) mmol/L Calcium (8.5-10.1) mg/dL Magnesium (1.8-2.4) mg/dl Total Bilirubin (0.2-1.0) mg/dL AST (15-37) U/L ALT (16-63) U/L Alkaline Phosphatase (46-116) U/L Troponin I < 0.017 (0.00-0.056) ng/mL C-Reactive Protein (<1.0) mg/dL Total Protein (6.4-8.2) g/dl Albumin (3.4-5.0) g/dl Globulin gm/dL Albumin/Globulin Ratio (1-2) Mycoplasma pneumon IgM (NEGATIVE) Result Diagrams: 07/06/17 10:45 07/06/17 10:45 Tenzin Results Last 24 hrs: Microbiology 07/06/17 11:33 Influenza Type A Antigen Screen - Final Nasopharyngeal Swab - Nare, Unspecified NEGATIVE INFLUENZA A VIRUS AG Influenza Type B Antigen Screen - Final NEGATIVE INFLUENZA B VIRUS AG - Problem List (1) Lobar pneumonia, unspecified organism SNOMED Code(s): 405927315 ICD Code: J18.1 - LOBAR PNEUMONIA, UNSPECIFIED ORGANISM Status: Acute Current Visit: Yes (2) Chronic back pain SNOMED Code(s): 525481722 ICD Code: M54.9 - DORSALGIA, UNSPECIFIED; G89.29 - OTHER CHRONIC PAIN Status: Acute Current Visit: No (3) Drug-seeking behavior SNOMED Code(s): 065471482 ICD Code: Z76.5 - MALINGERER [CONSCIOUS SIMULATION] Status: Acute Current Visit: No (4) GERD with esophagitis SNOMED Code(s): 220396808 ICD Code: K21.0 - GASTRO-ESOPHAGEAL REFLUX DISEASE WITH ESOPHAGITIS Status : Acute Current Visit: No (5) Zoster SNOMED Code(s): 9966044 ICD Code: B02.9 - ZOSTER WITHOUT COMPLICATIONS Status: Acute Current Visit: No Qualifiers: Herpes zoster complications: without complications Qualified Code(s): B02.9 - Zoster without complications (6) SLE (systemic lupus erythematosus) SNOMED Code(s): 21973886 ICD Code: M32.9 - SYSTEMIC LUPUS ERYTHEMATOSUS, UNSPECIFIED Status: Chronic Priority: Medium Current Visit: No Qualifiers: Systemic lupus erythematosus type: unspecified Systemic lupus erythematosus organ involvement: unspecified Qualified Code(s): M32.9 - Systemic lupus erythematosus, unspecified (7) Tobacco dependence SNOMED Code(s): 22484305 ICD Code: F17.200 - NICOTINE DEPENDENCE, UNSPECIFIED, UNCOMPLICATED Status : Chronic Priority: High Current Visit: No (8) Hypomagnesemia SNOMED Code(s): 823096420 ICD Code: E83.42 - HYPOMAGNESEMIA Status: Resolved Priority: High Current Visit: No (9) Hypoxia SNOMED Code(s): 203113059 ICD Code: R09.02 - HYPOXEMIA Status: Resolved Priority: High Current Visit: No Problem List Initiated/Reviewed/Updated: Yes Orders Last 24hrs: Active Orders 24 hr Category Date Time Status Admission Status [Patient Status] [ADT] Routine ADT 07/06/17 12:40 Active EKG Documentation Completion [RC] STAT Care 07/06/17 11:11 Active Oxygen Therapy [RC] ASDIRECTED Care 07/06/17 11:12 Active Peripheral IV Care [RC] . DIRECTED Care 07/06/17 10:57 Active RT Aerosol Therapy [RC] ASDIRECTED Care 07/06/17 11:14 Active Chest 2V [CR] Stat Exams 07/06/17 11:15 Taken CULTURE BLOOD [BC] Stat Lab 07/06/17 10:45 Received CULTURE BLOOD [BC] Stat Lab 07/06/17 11:20 Received INFLUENZA A+B AG SCREEN [RM] Stat Lab 07/06/17 11:33 Ordered PRO B-TYPE NATRIUR PEPT,BNPPRO [CHEM] Stat Lab 07/06/17 10:45 Received RESPIRATORY PANEL BY PCR [MREF] Stat Lab 07/06/17 11:15 Ordered RESPIRATORY PANEL BY PCR [MREF] Stat Lab 07/06/17 11:41 Ordered STREP PNEUMONIAE ANTIGEN [MREF] Stat Lab 07/06/17 10:59 Ordered Magnesium Sulfate/Water [Magnesium Sulfate 2 GM in Med 07/06/17 12:26 Active Water 50 ML] 2 gm Premix Bag 1 bag IV ONETIME Sodium Chloride 0.9% [Saline Flush] Med 07/06/17 10:55 Active 10 ml FLUSH ASDIRECTED PRN Peripheral IV Insertion Adult [OM.PC] Stat Oth 07/06/17 10:57 Ordered Medication Orders Magnesium Sulfate 2 gm/ Premix 50 mls @ 25 mls/hr IV ONETIME ONE Stop: 07/06/17 14:25 Last Admin: 07/06/17 12:58 Dose: 25 mls/hr Sodium Chloride (Saline Flush) 10 ml FLUSH ASDIRECTED PRN PRN Reason: Keep Vein Open Last Admin: 07/06/17 11:06 Dose: 10 ml Assessment/Plan Comment:: Impression: LLL PNA with tobacco dependence COPD with emphysematous changes SLE on Plaquenil Chronic back pain on Percocet every 2 hours Opioid dependence Chronic HTN GERD Herpes Zoster Plan: IVF ID work up re: resp; droplet isolation. Clear liquids advance as tolerated ATB re: CAP Steroids q 6H NEBS prn Home meds, decrease Perocet, add fentanyl Daily labs DVT/GI prophylaxis Consult PT/OT
[2017-07-06] MEDS ORDERED: FLUOCINOLONE PO PRN (13:57)
[2017-07-06] MEDS ORDERED: [UNRECOGNIZED DRUG - OTHER] PO PRN (13:57)
[2017-07-06] MEDS ORDERED: fentaNYL 25 MCG/HR Transdermal Patch TRDERM SCH ×2 (14:00→17:00)
[2017-07-06] MEDS ORDERED: Temazepam 7.5 MG Cap PO PRN (14:00)
[2017-07-06] MEDS ORDERED: Albuterol 0.083% 2.5 MG/3 ML Neb Soln NEB PRN (14:05)
[2017-07-06] MEDS ORDERED: Albuterol/Ipratropium 3.0-0.5 MG/3 ML Neb Soln NEB PRN (14:05)
[2017-07-06] MEDS ORDERED: traMADol 50 MG Tab PO PRN (14:08)
[2017-07-06] MEDS ORDERED: Acetaminophen 325 MG Tab PO PRN (14:08)
[2017-07-06] MEDS ORDERED: Ondansetron 4 MG/2 ML SDV IVPUSH PRN (14:13)
[2017-07-06] MEDS ORDERED: Pneumococcal Polyvalent-23 Vaccine 0.5 ML SDV IM ONE (14:20)
[2017-07-06] MEDS ORDERED: oxyCODONE 5 MG Tab PO PRN (14:26)
[2017-07-06] MEDS ORDERED: Acetaminophen/oxyCODONE 325-5 MG Tab PO PRN (14:30)
[2017-07-06] MEDS ORDERED: Lactated Ringers 2,000 ML IV ONE (14:32)
[2017-07-06] MEDS ORDERED: Enoxaparin 40 MG/0.4 ML Syringe SUBCUT SCH (15:00)
[2017-07-06] MEDS: Acetaminophen/oxyCODONE 325-5 MG Tab PO PRN (15:06)
[2017-07-06] MEDS: Gabapentin 300 MG Cap PO SCH ×2 (15:07→20:41)
[2017-07-06] MEDS: methylPREDNISolone Sodium Succinate 125 MG/2 ML SDV IVPUSH SCH ×2 (15:09→22:36)
[2017-07-06] MEDS ORDERED: Tamsulosin 0.4 MG Cap.ER PO SCH (21:00)
[2017-07-07] MEDS: Acetaminophen/oxyCODONE 325-5 MG Tab PO PRN (03:39)
[2017-07-07] MEDS ORDERED: Pantoprazole 40 MG Tab.CR PO SCH (06:00)
[2017-07-07] MEDS: methylPREDNISolone Sodium Succinate 125 MG/2 ML SDV IVPUSH SCH (06:19)
[2017-07-07] MEDS ORDERED: Azithromycin 500 MG AdvVial IV SCH (08:00)
--- NOTE | 2017-07-07 08:18 | CR ---
Chest: Two views of the chest were obtained. Comparison: Prior chest x-ray of 02/14/17. Interstitial changes are seen within both lungs, worse on the left side. Findings on the left side either due to slowly resolving pneumonia or development of scarring. Findings on the right side are felt to represent mild fibrosis. Heart size is normal. Tortuous thoracic aorta is seen. Left shoulder prosthesis is noted. Scattered degenerative change is noted within the spine. Impression: 1. Interstitial change as described above. 2. Other incidental findings. Nothing acute is definitely appreciated. Diagnostic code #3
[2017-07-07] MEDS ORDERED: Azithromycin 500 MG in Sodium Chloride 0.9% 250 ML IV SCH (09:00)
[2017-07-07] MEDS ORDERED: Polyethylene Glycol 3350 Powder 17 GM Packet PO SCH (09:00)
[2017-07-07] MEDS ORDERED: Nicotine 21 MG/24 Hr Patch TRDERM SCH (09:00)
[2017-07-07] MEDS: Gabapentin 300 MG Cap PO SCH (09:00)
[2017-07-07] MEDS ORDERED: amLODIPine 10 MG Tab PO SCH (09:00)
[2017-07-07] MEDS ORDERED: Spironolactone 25 MG Tab PO SCH (09:00)
[2017-07-07] MEDS ORDERED: Hydroxychloroquine 200 MG Tab PO SCH (09:00)
[2017-07-07 09:04] VITALS: BP 129/61
[2017-07-07] MEDS ORDERED: cefTRIAXone 2 GM in Sodium Chloride 0.9% 100 ML IV SCH (11:00)
--- NOTE | 2017-07-07 11:03 | PCM.PN ---
- General Info Date of Service: 07/07/17 Admission Dx/Problem (Free Text): Admission Diagnosis/Problem Admission Diagnosis/Problem Pneumonia Subjective Update: In to see Bhavin today. He is lying in bed. Overall he is doing quite well. He has no complaints. He has been sleeping well. Good appetite. Ambulating. Pain is controlled. No fever, chills, cough, SOB, N/V/D. Urinating. Incentive Spirometry. No concerns from nursing. Functional Status: Reports: Pain Controlled, Tolerating Diet, Ambulating, Urinating - Review of Systems General: Reports: No Symptoms. Denies: Fever, Chills HEENT: Reports: No Symptoms Pulmonary: Reports: No Symptoms. Denies: Cough, Sputum Cardiovascular: Reports: No Symptoms. Denies: Chest Pain, Palpitations, Dyspnea on Exertion Gastrointestinal: Reports: No Symptoms. Denies: Abdominal Pain, Diarrhea, Nausea, Vomiting Genitourinary: Reports: No Symptoms. Denies: Dysuria, Frequency, Burning, Pain , Urgency Musculoskeletal: Reports: No Symptoms Skin: Reports: No Symptoms Neurological: Reports: No Symptoms Psychiatric: Reports: No Symptoms - Patient Data Vitals - Most Recent: Last Vital Signs Temp 99.1 F 07/07/17 08:09 Pulse 85 07/07/17 08:09 Resp 20 07/07/17 08:09 BP 129/61 07/07/17 09:01 Pulse Ox 100 07/07/17 08:09 Weight - Most Recent: 190 lb 6.4 oz I&O - Last 24 Hours: Intake & Output 07/06/17 07/07/17 07/07/17 22:59 06:59 14:59 Intake Total 3360 800 420 Output Total 1300 2700 Balance 2060 -1900 420 Lab Results Last 24 Hours: Laboratory Results - last 24 hr 07/06/17 07/06/17 07/06/17 Range/Units 10:45 10:45 10:45 WBC 17.47 H (4.23-9.07) K/mm3 RBC 3.37 L (4.63-6.08) M/mm3 Hgb 10.1 L (13.7-17.5) gm/L Hct 31.2 L (40.1-51.0) % MCV 92.6 H (79.0-92.2) fl MCH 30.0 (25.7-32.2) pg MCHC 32.4 (32.2-35.5) g/dl RDW Std Deviation 50.0 H (35.1-43.9) fL Plt Count 235 (163-337) K/mm3 MPV 11.0 (9.4-12.3) fl Neut % (Auto) 89.7 H (34.0-67.9) % Lymph % (Auto) 3.9 L (21.8-53.1) % [place] % (Auto) 5.7 (5.3-12.2) % Eos % (Auto) 0.4 L (0.8-7.0) Baso % (Auto) 0.1 (0.1-1.2) % Neut # (Auto) 15.67 H (1.78-5.38) K/mm3 Lymph # (Auto) 0.68 L (1.32-3.57) K/mm3 [place] # (Auto) 0.99 H (0.30-0.82) K/mm3 Eos # (Auto) 0.07 (0.04-0.54) K/mm3 Baso # (Auto) 0.02 (0.01-0.08) K/mm3 Manual Slide Review Abnormal smear Sodium 131 L (136-145) mEq/L Potassium 4.2 (3.5-5.1) mEq/L Chloride 95 L (98-107) mEq/L Carbon Dioxide 23 (21-32) mEq/L Anion Gap 17.2 H (5-15) BUN 16 (7-18) mg/dL Creatinine 1.1 (0.7-1.3) mg/dL Est Cr Clr Drug Dosing 54.60 mL/min Estimated GFR (MDRD) > 60 (>60) mL/min BUN/Creatinine Ratio 14.5 (14-18) Glucose 98 (80-115) mg/dL Lactic Acid (0.4-2.0) mmol/L Calcium 9.0 (8.5-10.1) mg/dL Magnesium 1.7 L (1.8-2.4) mg/dl Total Bilirubin 0.5 (0.2-1.0) mg/dL AST 7 L (15-37) U/L ALT 14 L (16-63) U/L Alkaline Phosphatase 60 (46-116) U/L Troponin I (0.00-0.056) ng/mL C-Reactive Protein 18.5 H* (<1.0) mg/dL Total Protein 7.6 (6.4-8.2) g/dl Albumin 3.1 L (3.4-5.0) g/dl Globulin 4.5 gm/dL Albumin/Globulin Ratio 0.7 L (1-2) Mycoplasma pneumon IgM Negative (NEGATIVE) 07/06/17 07/06/17 07/07/17 Range/Units 10:45 11:20 06:54 WBC 14.14 H (4.23-9.07) K/mm3 RBC 3.58 L (4.63-6.08) M/mm3 Hgb 10.5 L (13.7-17.5) gm/L Hct 33.3 L (40.1-51.0) % MCV 93.0 H (79.0-92.2) fl MCH 29.3 (25.7-32.2) pg MCHC 31.5 L (32.2-35.5) g/dl RDW Std Deviation 49.3 H (35.1-43.9) fL Plt Count 193 (163-337) K/mm3 MPV 11.1 (9.4-12.3) fl Neut % (Auto) 93.2 H (34.0-67.9) % Lymph % (Auto) 5.2 L (21.8-53.1) % [place] % (Auto) 1.5 L (5.3-12.2) % Eos % (Auto) 0 L (0.8-7.0) Baso % (Auto) 0.0 L (0.1-1.2) % Neut # (Auto) 13.18 H (1.78-5.38) K/mm3 Lymph # (Auto) 0.73 L (1.32-3.57) K/mm3 [place] # (Auto) 0.21 L (0.30-0.82) K/mm3 Eos # (Auto) 0.00 L (0.04-0.54) K/mm3 Baso # (Auto) 0.00 L (0.01-0.08) K/mm3 Manual Slide Review Abnormal smear Sodium (136-145) mEq/L Potassium (3.5-5.1) mEq/L Chloride (98-107) mEq/L Carbon Dioxide (21-32) mEq/L Anion Gap (5-15) BUN (7-18) mg/dL Creatinine (0.7-1.3) mg/dL Est Cr Clr Drug Dosing mL/min Estimated GFR (MDRD) (>60) mL/min BUN/Creatinine Ratio (14-18) Glucose (80-115) mg/dL Lactic Acid 0.8 (0.4-2.0) mmol/L Calcium (8.5-10.1) mg/dL Magnesium (1.8-2.4) mg/dl Total Bilirubin (0.2-1.0) mg/dL AST (15-37) U/L ALT (16-63) U/L Alkaline Phosphatase (46-116) U/L Troponin I < 0.017 (0.00-0.056) ng/mL C-Reactive Protein (<1.0) mg/dL Total Protein (6.4-8.2) g/dl Albumin (3.4-5.0) g/dl Globulin gm/dL Albumin/Globulin Ratio (1-2) Mycoplasma pneumon IgM (NEGATIVE) 07/07/17 07/07/17 Range/Units 06:54 06:54 WBC (4.23-9.07) K/mm3 RBC (4.63-6.08) M/mm3 Hgb (13.7-17.5) gm/L Hct (40.1-51.0) % MCV (79.0-92.2) fl MCH (25.7-32.2) pg MCHC (32.2-35.5) g/dl RDW Std Deviation (35.1-43.9) fL Plt Count (163-337) K/mm3 MPV (9.4-12.3) fl Neut % (Auto) (34.0-67.9) % Lymph % (Auto) (21.8-53.1) % [place] % (Auto) (5.3-12.2) % Eos % (Auto) (0.8-7.0) Baso % (Auto) (0.1-1.2) % Neut # (Auto) (1.78-5.38) K/mm3 Lymph # (Auto) (1.32-3.57) K/mm3 [place] # (Auto) (0.30-0.82) K/mm3 Eos # (Auto) (0.04-0.54) K/mm3 Baso # (Auto) (0.01-0.08) K/mm3 Manual Slide Review Sodium 135 L (136-145) mEq/L Potassium 3.8 (3.5-5.1) mEq/L Chloride 99 (98-107) mEq/L Carbon Dioxide 25 (21-32) mEq/L Anion Gap 14.8 (5-15) BUN 14 (7-18) mg/dL Creatinine 0.9 (0.7-1.3) mg/dL Est Cr Clr Drug Dosing 69.43 mL/min Estimated GFR (MDRD) > 60 (>60) mL/min BUN/Creatinine Ratio 15.6 (14-18) Glucose 129 H (80-115) mg/dL Lactic Acid 1.5 (0.4-2.0) mmol/L Calcium 9.3 (8.5-10.1) mg/dL Magnesium (1.8-2.4) mg/dl Total Bilirubin (0.2-1.0) mg/dL AST (15-37) U/L ALT (16-63) U/L Alkaline Phosphatase (46-116) U/L Troponin I (0.00-0.056) ng/mL C-Reactive Protein 31.5 H* (<1.0) mg/dL Total Protein (6.4-8.2) g/dl Albumin (3.4-5.0) g/dl Globulin gm/dL Albumin/Globulin Ratio (1-2) Mycoplasma pneumon IgM (NEGATIVE) Tenzin Results Last 24 Hours: Microbiology 07/06/17 11:33 Influenza Type A Antigen Screen - Final Nasopharyngeal Swab - Nare, Unspecified NEGATIVE INFLUENZA A VIRUS AG Influenza Type B Antigen Screen - Final NEGATIVE INFLUENZA B VIRUS AG Med Orders - Current: Current Medications Acetaminophen (Tylenol) 650 mg PO Q6H PRN PRN Reason: Pain/Fever Albuterol (Proventil Neb Soln) 2.5 mg NEB Q4HRRT PRN PRN Reason: Shortness of Breath Albuterol/Ipratropium (Duoneb 3.0-0.5 Mg/3 Ml) 3 ml NEB QID PRN PRN Reason: Shortness of Breath Amlodipine Besylate (Norvasc) 10 mg PO DAILY [facility] Last Admin: 07/07/17 09:01 Dose: 10 mg Enoxaparin Sodium (Lovenox) 40 mg SUBCUT Q24H [facility] Last Admin: 07/06/17 15:24 Dose: 40 mg Fentanyl (Duragesic) 25 mcg TRDERM Q72H [facility] Last Admin: 07/06/17 18:10 Dose: 25 mcg Gabapentin (Neurontin) 900 mg PO TID [facility] Last Admin: 07/07/17 09:00 Dose: 900 mg Hydroxychloroquine Sulfate (Plaquenil) 200 mg PO DAILY [facility] Last Admin: 07/07/17 09:02 Dose: 200 mg Ceftriaxone Sodium 2 gm/ (Sodium Chloride) 100 mls @ 100 mls/hr IV Q24H [facility] Last Admin: 07/07/17 10:33 Dose: 100 mls/hr Azithromycin 500 mg/ Sodium (Chloride) 250 mls @ 250 mls/hr IV DAILY [facility] Last Admin: 07/07/17 09:02 Dose: 250 mls/hr Methylprednisolone Sodium Succinate (Solu-Medrol) 125 mg IVPUSH Q8H [facility] Last Admin: 07/07/17 06:19 Dose: 125 mg Miscellaneous Information (Remove Patch) 1 ea TRDERM DAILY [facility] Last Admin: 07/07/17 09:05 Dose: Not Given Miscellaneous Information (Remove Patch) 1 ea TRDERM Q72H [facility] Nicotine (Habitrol) 21 mg TRDERM DAILY [facility] Last Admin: 07/07/17 09:00 Dose: 21 mg Ondansetron HCl (Zofran) 4 mg IVPUSH Q8H PRN PRN Reason: Nausea/Vomiting Oxycodone HCl (Oxycodone) 5 mg PO Q6H PRN PRN Reason: Pain Last Admin: 07/06/17 18:08 Dose: 5 mg Oxycodone/Acetaminophen (Percocet 325-5 Mg) 1 tab PO Q6H PRN PRN Reason: Pain Last Admin: 07/07/17 03:39 Dose: 1 tab Pantoprazole Sodium (Protonix) 40 mg PO ACBRK [facility] Last Admin: 07/07/17 06:25 Dose: 40 mg Fluocinolone/Emol Comb No.65 [Synalar 0.025% Cream Kit] 1 0 each PO BID PRN PRN Reason: Rash Polyethylene Glycol (Miralax) 17 gm PO DAILY [facility] Last Admin: 07/07/17 08:55 Dose: 17 gm Senna/Docusate Sodium (Senna Plus) 1 tab PO BID [facility] Last Admin: 07/07/17 09:02 Dose: 1 tab Sodium Chloride (Saline Flush) 10 ml FLUSH ASDIRECTED PRN PRN Reason: Keep Vein Open Last Admin: 07/06/17 11:06 Dose: 10 ml Spironolactone (Aldactone) 25 mg PO DAILY [facility] Last Admin: 07/07/17 09:01 Dose: 25 mg Tamsulosin HCl (Flomax) 0.8 mg PO BEDTIME [facility] Last Admin: 07/06/17 20:41 Dose: 0.8 mg Temazepam (Restoril) 7.5 mg PO BEDTIME PRN PRN Reason: Insomnia Tramadol HCl (Ultram) 50 mg PO Q8H PRN PRN Reason: Pain (moderate 4-6) Last Admin: 07/07/17 08:58 Dose: 50 mg Discontinued Medications Acetaminophen (Tylenol) 975 mg PO NOW ONE Stop: 07/06/17 10:52 Last Admin: 07/06/17 10:53 Dose: 975 mg Acetaminophen (Tylenol) Confirm Administered Dose 975 mg .ROUTE .STK-MED ONE Stop: 07/06/17 10:53 Last Admin: 07/06/17 11:06 Dose: Not Given Albuterol/Ipratropium (Duoneb 3.0-0.5 Mg/3 Ml) 3 ml NEB ONETIME ONE Stop: 07/06/17 11:15 Last Admin: 07/06/17 11:24 Dose: 3 ml Fentanyl (Duragesic) 25 mcg TRDERM Q72H [facility] Azithromycin 500 mg/ Sodium (Chloride) 250 mls @ 250 mls/hr IV ONETIME ONE Stop: 07/06/17 12:11 Last Admin: 07/06/17 11:45 Dose: 250 mls/hr Ceftriaxone Sodium 2 gm/ (Sodium Chloride) 100 mls @ 100 mls/hr IV ONETIME ONE Stop: 07/06/17 12:11 Last Admin: 07/06/17 11:24 Dose: 100 mls/hr Sodium Chloride (Normal Saline) 1,000 mls @ 999 mls/hr IV ONETIME ONE Stop: 07/06/17 12:13 Last Admin: 07/06/17 11:24 Dose: 999 mls/hr Magnesium Sulfate 2 gm/ Premix 50 mls @ 25 mls/hr IV ONETIME ONE Stop: 07/06/17 14:25 Last Admin: 07/06/17 12:58 Dose: 25 mls/hr Lactated Ringer's (Ringers, Lactated) 2,000 mls @ 999 mls/hr IV .BOLUS ONE Stop: 07/06/17 16:32 Last Admin: 07/06/17 15:03 Dose: 999 mls/hr Miscellaneous Information (Remove Patch) 1 ea TRDERM Q72H [facility] Oxycodone/Acetaminophen (Percocet 325-5 Mg) 1 tab PO Q6H PRN PRN Reason: Pain Pneumococcal Polyvalent Vaccine (Pneumovax 23) 0.5 ml IM .ONCE ONE Stop: 07/06/17 14:21 - Exam Quality Assessment: DVT Prophylaxis. No: Supplemental Oxygen General: Alert, Oriented, Cooperative, No Acute Distress HEENT: Pupils Equal, Pupils Reactive, EOMI, Mucous Membr. Moist/[place] Neck: Supple Lungs: Clear to Auscultation, Normal Respiratory Effort Cardiovascular: Regular Rate, Regular Rhythm GI/Abdominal Exam: Normal Bowel Sounds, Soft, Non-Tender, No Organomegaly, No Distention, No Abnormal Bruit, No Mass, Pelvis Stable (Male) Exam: Deferred Back Exam: Normal Inspection, Full Range of Motion Extremities: Normal Inspection, Normal Range of Motion, Non-Tender, No Pedal Edema, Normal Capillary Refill Peripheral Pulses: 2+: Posterior Tibial (L), Posterior Tibial (R), Dorsalis Pedis (L), Dorsalis Pedis (R) Skin: Warm, Dry, Intact Neurological: No New Focal Deficit Psy/Mental Status: Alert, Normal Affect, Normal Mood - Problem List & Annotations (1) Lobar pneumonia, unspecified organism SNOMED Code(s): 474754885 Code(s): J18.1 - LOBAR PNEUMONIA, UNSPECIFIED ORGANISM Status: Acute Priority: High Current Visit: Yes (2) Chronic back pain SNOMED Code(s): 025056682 Code(s): M54.9 - DORSALGIA, UNSPECIFIED; G89.29 - OTHER CHRONIC PAIN Status : Chronic Priority: Low Current Visit: No Qualifiers: Back pain laterality: unspecified Sciatica presence: unspecified whether sciatica present (3) Congestive cardiac failure SNOMED Code(s): 90018406 Code(s): I50.9 - HEART FAILURE, UNSPECIFIED Status: Chronic Priority: Medium Current Visit: No (4) Drug-seeking behavior SNOMED Code(s): 609221192 Code(s): Z76.5 - MALINGERER [CONSCIOUS SIMULATION] Status: Chronic Priority: Medium Current Visit: No (5) GERD with esophagitis SNOMED Code(s): 781636479 Code(s): K21.0 - GASTRO-ESOPHAGEAL REFLUX DISEASE WITH ESOPHAGITIS Status: Chronic Priority: Medium Current Visit: No - Problem List Review Problem List Initiated/Reviewed/Updated: Yes - Plan Plan:: I/P: LLL PNA -Acute on Chronic -Was diagnosed with LLL PNA back in January -CXR: Shows healing LLL PNA superimposed on fibrotic changes Tobacco dependence -1 ppd x 50 years -No interest in quitting, -Tobacco cessation practical counseling given COPD with emphysematous changes SLE on Plaquenil Drug seeking- behavior/Opioid dependence -Chronic back pain, states is on Percocet every 2 hours -Last Percocet Rx 03/10/2017 (210 x30 d) Chronic HTN GERD Herpes Zoster Plan: IVF ID work up re: resp; droplet isolation. Clear liquids advance as tolerated ATB re: CAP Steroids q 6H NEBS prn Home meds, decrease Perocet, add fentanyl Daily labs DVT/GI prophylaxis Consult PT/OT
--- NOTE | 2017-07-07 11:10 | PCM.SN ---
- Free Text/Narrative Note: DISCUSSED WITH PHARMD, THE PATIENT'S OPIOID USE WAS CHECKED ON THE [place] DATABASE. HE HAS NOT HAD PERCOCET FOR SEVERAL MONTHS; THE LAST PRESCRIPTION WAS FOR A 30 DAY SUPPLY. HIS PERCOCET AND FENTANYL WILL BE STOPPED.
--- NOTE | 2017-07-07 12:02 | PCM.DCSUM1 ---
Discharge Summary - Hospital Course HPI Initial Comments: Bhavin is a 66yo male presents to ED ambulatory accompanied by . He has had 3 wks of cough and "cold". Grandkids and other familiy members have been ill with similar symptoms but have all improved/resolved. The past 3-4 days his cough has worsened acutely with yellow sputum production, yesterday he developed fever with chills, overnight the chills became worse to the point of shaking chills. He is now shaking and chilled. Temp now is 104. He is coughing, dry and hacky now. No n/v/d. Denies chest pain, palpitations or racing heart rates, he denies being SOB but appears SOB. He is hypoxic in the mid 80's, supplemental oxygen is applied. He has 50 pack year hx with 1ppd x 50 years. He was hospitalized in January for Pneumonia. At that time he had a chest CT showing emphysematous changes and LLL PNA. PMH: Lupus, HTN, GERD, hx of pneumonia, chronic LBP, nicotine dependence. PCP is Dr. Strange with [facility]. - Discharge Data Discharge Date: 07/07/17 Discharge Disposition: Home, Self-Care 01 Condition: Good - Discharge Diagnosis/Problem(s) (1) Lobar pneumonia, unspecified organism SNOMED Code(s): 688792537 ICD Code: J18.1 - LOBAR PNEUMONIA, UNSPECIFIED ORGANISM Status: Acute Priority: High Current Visit: Yes (2) Chronic back pain SNOMED Code(s): 812818936 ICD Code: M54.9 - DORSALGIA, UNSPECIFIED; G89.29 - OTHER CHRONIC PAIN Status: Chronic Priority: Low Current Visit: No Qualifiers: Back pain laterality: unspecified Sciatica presence: unspecified whether sciatica present (3) Congestive cardiac failure SNOMED Code(s): 07508140 ICD Code: I50.9 - HEART FAILURE, UNSPECIFIED Status: Chronic Priority: Medium Current Visit: No (4) Drug-seeking behavior SNOMED Code(s): 542316983 ICD Code: Z76.5 - MALINGERER [CONSCIOUS SIMULATION] Status: Chronic Priority: High Current Visit: Yes (5) GERD with esophagitis SNOMED Code(s): 262888810 ICD Code: K21.0 - GASTRO-ESOPHAGEAL REFLUX DISEASE WITH ESOPHAGITIS Status : Chronic Priority: Medium Current Visit: No - Patient Summary/Data Operative Procedure(s) Performed: none Complications: none Consults: none Labs Pending at D/C: Strep pneumo and RVP Recommended Follow-up Testing/Procedures: Follow up with PCP in 7-10 days Tobacco cessation counseling and Nicotine patches prescribed--> F/U with PCP for continued treatment Planned Operative Procedure(s) after DC: none Hospital Course: I/P: LLL PNA, Improved to resolved -Risk factors: h/o LLL PNA in January, Sick contacts at home -Fever of 104, Cough with sputum, O2 sat in 80's in ED--> Resolved now -CXR showed left lower lobe "slowly resolving PNA or development of scarring ", mild fibrosis -WBC 17-->14.14; CRP 18.5-->31.5 -Lactic acid and blood cultures--> negative -Influenza and Mycoplasma--> negative -Strep pneumo, RVP--> pending -Ceftriaxone and Azitho --> D/C home with Zpak -Steroids q6 H--> D/C today -Nebs PRN, IVF, Droplet isolation Tobacco Dependence -H/o 1ppd x 50 years; Smoking cessation counseling given as well as nicotine patches -Nicotine patches prescribed at D/C -Follow up with PCP for further treatment OPIOID DEPENDENCE/DRUG SEEKING BEHAVIOR -States he takes Percocet Q2H for chronic back pain -CHECKED DATABASE AND CALLED PHARMACY- LAST RX FOR OPIOID MEDICATION WAS MONTHS AGO Chronic HTN GERD Herpes Zoster SLE on Plaquenil COPD with emphysematous changes Plan: Clear liquids advance as tolerated--> normal diet today Home meds, decrease Perocet, add fentanyl--> D/C ALL PAIN MEDICATIONS (DRUG SEEKING BEHAVIOR) Daily labs DVT/GI prophylaxis Consult PT/OT D/C today Pt is Full code; PCP is Dr. Strange with [facility]. Bhavin has recovered quite well and states he is ready to go home. He had multiple tests done. So far all have been negative except for CXR showed left lower lobe interstitial change: radiologist interpreted as "slowly resolving pneumonia or development of scarring" and mild fibrosis. He had left lower lobe pneumonia back in January. Strep pneumo and RVP are pending. He should follow- up with his primary care provider in 7-10 days. He was discharged home with prescriptions for a Z-Niels and nicotine patches. He will be discharged home today. PT HAS DRUG-SEEKING BEHAVIOR. TOLD US HE TAKES PERCOCET Q2 HRS FOR BACK PAIN. CHECKED DATABASE AND CALLED PHARMACY- SHOWS LAST PRESCRIPTION FOR OPIOID MEDICATION WAS MONTHS AGO. - Patient Instructions Diet: Heart Healthy Diet Activity: As Tolerated Driving: Do Not Drive Showering/Bathing: May Shower Notify Provider of: Fever, Nausea and/or Vomiting Other/Special Instructions: Return to ED if increased shortness of breath, productive cough, fever/chills - Discharge Plan Prescriptions/Med Rec: Azithromycin [Zithromax] 250 mg PO DAILY #4 tab Nicotine [Habitrol] 1 patch TD DAILY #30 patch Home Medications: Home Meds Pantoprazole Sodium [Protonix] 40 mg PO DAILY 07/22/16 [History] Clobetasol Propionate [Temovate Oint] 1 applic TOP BEDTIME PRN 01/03/17 [History ] Fluocinolone/Emol Comb No.65 [Synalar 0.025% Cream Kit] 1 applic PO BID PRN 05/17 [History] Gabapentin [Neurontin] 900 mg PO TID 01/03/17 [History] Hydroxychloroquine [Plaquenil] 200 mg PO DAILY 01/03/17 [History] Ibuprofen 200 - 600 mg PO TID PRN 01/03/17 [History] Polyethylene Glycol [Polyox Wsr-301] 1 dose PO DAILY 01/03/17 [History] Sennosides/Docusate Sodium [Senna-Docusate Sodium] 1 tab PO BID 01/03/17 [ History] Spironolactone [Aldactone] 25 mg PO DAILY 01/03/17 [History] Tamsulosin [Flomax] 0.8 mg PO BEDTIME 01/03/17 [History] amLODIPine [Norvasc] 10 mg PO DAILY 01/03/17 [History] Lisinopril [Prinivil] 10 mg PO DAILY #30 tablet 01/06/17 [Rx] Nicotine [Habitrol] 21 mg TRDERM DAILY #30 patch 01/06/17 [Rx] Azithromycin [Zithromax] 250 mg PO DAILY #4 tab 07/07/17 [Rx] Mirtazapine 30 mg PO BEDTIME 07/07/17 [History] Nicotine [Habitrol] 1 patch TD DAILY #30 patch 07/07/17 [Rx] Phentermine HCl 30 mg PO DAILY 07/07/17 [History] Zolpidem Tartrate 10 mg PO BEDTIME PRN 07/07/17 [History] Patient Handouts: Steps to Quit Smoking, Community-Acquired Pneumonia, Adult, [id number] Referrals: Calixto Strange MD [Primary Care Provider] - - Discharge Summary/Plan Comment DC Time >30 min.: Yes (40) - General Info Date of Service: 07/07/17 Admission Dx/Problem (Free Text: Pneumonia Subjective Update: In to see Bhavin today. He is lying in bed. Overall he is doing quite well and is requesting to go home today. He has no complaints. He has been sleeping well. Good appetite. Ambulating. Pain is controlled. No fever, chills, N/V/D, productive cough. Urinating. Incentive Spirometry. No concerns from nursing. Discussed smoking cessation and he would like to quit. Will be DCd back to Home today with Zpak and Nicotine patches. Functional Status: Reports: Pain Controlled, Tolerating Diet, Ambulating, Urinating, Incentive Spirometry - Review of Systems General: Reports: No Symptoms. Denies: Fever, Chills HEENT: Reports: No Symptoms Pulmonary: Reports: Cough (improved, dry cough). Denies: Shortness of Breath, Pleuritic Chest Pain, Sputum, Wheezing Cardiovascular: Reports: No Symptoms. Denies: Chest Pain, Palpitations, Dyspnea on Exertion Gastrointestinal: Reports: No Symptoms. Denies: Abdominal Pain, Diarrhea, Nausea, Vomiting Genitourinary: Reports: No Symptoms. Denies: Dysuria, Frequency, Burning, Pain Musculoskeletal: Reports: No Symptoms Skin: Reports: No Symptoms Neurological: Reports: No Symptoms Psychiatric: Reports: No Symptoms - Patient Data Vitals - Most Recent: Last Vital Signs Temp 99.1 F 07/07/17 08:09 Pulse 85 07/07/17 08:09 Resp 20 07/07/17 08:09 BP 129/61 07/07/17 09:01 Pulse Ox 100 07/07/17 08:09 Weight - Most Recent: 190 lb 6.4 oz I&O - Last 24 hours: Intake & Output 07/06/17 07/07/17 07/07/17 22:59 06:59 14:59 Intake Total 3360 800 420 Output Total 1300 2700 Balance 2060 -1900 420 Lab Results - Last 24 hrs: Laboratory Results - last 24 hr 07/06/17 07/06/17 07/06/17 Range/Units 10:45 10:45 10:45 WBC (4.23-9.07) K/mm3 RBC (4.63-6.08) M/mm3 Hgb (13.7-17.5) gm/L Hct (40.1-51.0) % MCV (79.0-92.2) fl MCH (25.7-32.2) pg MCHC (32.2-35.5) g/dl RDW Std Deviation (35.1-43.9) fL Plt Count (163-337) K/mm3 MPV (9.4-12.3) fl Neut % (Auto) (34.0-67.9) % Lymph % (Auto) (21.8-53.1) % [place] % (Auto) (5.3-12.2) % Eos % (Auto) (0.8-7.0) Baso % (Auto) (0.1-1.2) % Neut # (Auto) (1.78-5.38) K/mm3 Lymph # (Auto) (1.32-3.57) K/mm3 [place] # (Auto) (0.30-0.82) K/mm3 Eos # (Auto) (0.04-0.54) K/mm3 Baso # (Auto) (0.01-0.08) K/mm3 Manual Slide Review Abnormal smear Sodium (136-145) mEq/L Potassium (3.5-5.1) mEq/L Chloride (98-107) mEq/L Carbon Dioxide (21-32) mEq/L Anion Gap (5-15) BUN (7-18) mg/dL Creatinine (0.7-1.3) mg/dL Est Cr Clr Drug Dosing mL/min Estimated GFR (MDRD) (>60) mL/min BUN/Creatinine Ratio (14-18) Glucose (80-115) mg/dL Lactic Acid (0.4-2.0) mmol/L Calcium (8.5-10.1) mg/dL C-Reactive Protein 18.5 H* (<1.0) mg/dL Mycoplasma pneumon IgM Negative (NEGATIVE) 07/06/17 07/07/17 07/07/17 Range/Units 11:20 06:54 06:54 WBC 14.14 H (4.23-9.07) K/mm3 RBC 3.58 L (4.63-6.08) M/mm3 Hgb 10.5 L (13.7-17.5) gm/L Hct 33.3 L (40.1-51.0) % MCV 93.0 H (79.0-92.2) fl MCH 29.3 (25.7-32.2) pg MCHC 31.5 L (32.2-35.5) g/dl RDW Std Deviation 49.3 H (35.1-43.9) fL Plt Count 193 (163-337) K/mm3 MPV 11.1 (9.4-12.3) fl Neut % (Auto) 93.2 H (34.0-67.9) % Lymph % (Auto) 5.2 L (21.8-53.1) % [place] % (Auto) 1.5 L (5.3-12.2) % Eos % (Auto) 0 L (0.8-7.0) Baso % (Auto) 0.0 L (0.1-1.2) % Neut # (Auto) 13.18 H (1.78-5.38) K/mm3 Lymph # (Auto) 0.73 L (1.32-3.57) K/mm3 [place] # (Auto) 0.21 L (0.30-0.82) K/mm3 Eos # (Auto) 0.00 L (0.04-0.54) K/mm3 Baso # (Auto) 0.00 L (0.01-0.08) K/mm3 Manual Slide Review Abnormal smear Sodium 135 L (136-145) mEq/L Potassium 3.8 (3.5-5.1) mEq/L Chloride 99 (98-107) mEq/L Carbon Dioxide 25 (21-32) mEq/L Anion Gap 14.8 (5-15) BUN 14 (7-18) mg/dL Creatinine 0.9 (0.7-1.3) mg/dL Est Cr Clr Drug Dosing 69.43 mL/min Estimated GFR (MDRD) > 60 (>60) mL/min BUN/Creatinine Ratio 15.6 (14-18) Glucose 129 H (80-115) mg/dL Lactic Acid 0.8 (0.4-2.0) mmol/L Calcium 9.3 (8.5-10.1) mg/dL C-Reactive Protein 31.5 H* (<1.0) mg/dL Mycoplasma pneumon IgM (NEGATIVE) 07/07/17 Range/Units 06:54 WBC (4.23-9.07) K/mm3 RBC (4.63-6.08) M/mm3 Hgb (13.7-17.5) gm/L Hct (40.1-51.0) % MCV (79.0-92.2) fl MCH (25.7-32.2) pg MCHC (32.2-35.5) g/dl RDW Std Deviation (35.1-43.9) fL Plt Count (163-337) K/mm3 MPV (9.4-12.3) fl Neut % (Auto) (34.0-67.9) % Lymph % (Auto) (21.8-53.1) % [place] % (Auto) (5.3-12.2) % Eos % (Auto) (0.8-7.0) Baso % (Auto) (0.1-1.2) % Neut # (Auto) (1.78-5.38) K/mm3 Lymph # (Auto) (1.32-3.57) K/mm3 [place] # (Auto) (0.30-0.82) K/mm3 Eos # (Auto) (0.04-0.54) K/mm3 Baso # (Auto) (0.01-0.08) K/mm3 Manual Slide Review Sodium (136-145) mEq/L Potassium (3.5-5.1) mEq/L Chloride (98-107) mEq/L Carbon Dioxide (21-32) mEq/L Anion Gap (5-15) BUN (7-18) mg/dL Creatinine (0.7-1.3) mg/dL Est Cr Clr Drug Dosing mL/min Estimated GFR (MDRD) (>60) mL/min BUN/Creatinine Ratio (14-18) Glucose (80-115) mg/dL Lactic Acid 1.5 (0.4-2.0) mmol/L Calcium (8.5-10.1) mg/dL C-Reactive Protein (<1.0) mg/dL Mycoplasma pneumon IgM (NEGATIVE) DAVIN Results - Last 24 hrs: Microbiology 07/06/17 11:20 Aerobic Blood Culture - Preliminary Blood NO GROWTH AFTER 1 DAY Anaerobic Blood Culture - Preliminary NO GROWTH AFTER 1 DAY 07/06/17 10:45 Aerobic Blood Culture - Preliminary Blood NO GROWTH AFTER 1 DAY Anaerobic Blood Culture - Preliminary NO GROWTH AFTER 1 DAY 07/06/17 11:33 Influenza Type A Antigen Screen - Final Nasopharyngeal Swab - Nare, Unspecified NEGATIVE INFLUENZA A VIRUS AG Influenza Type B Antigen Screen - Final NEGATIVE INFLUENZA B VIRUS AG Med Orders - Current: Current Medications Acetaminophen (Tylenol) 650 mg PO Q6H PRN PRN Reason: Pain/Fever Albuterol (Proventil Neb Soln) 2.5 mg NEB Q4HRRT PRN PRN Reason: Shortness of Breath Albuterol/Ipratropium (Duoneb 3.0-0.5 Mg/3 Ml) 3 ml NEB QID PRN PRN Reason: Shortness of Breath Amlodipine Besylate (Norvasc) 10 mg PO DAILY [facility] Last Admin: 07/07/17 09:01 Dose: 10 mg Enoxaparin Sodium (Lovenox) 40 mg SUBCUT Q24H [facility] Last Admin: 07/06/17 15:24 Dose: 40 mg Gabapentin (Neurontin) 900 mg PO TID [facility] Last Admin: 07/07/17 09:00 Dose: 900 mg Hydroxychloroquine Sulfate (Plaquenil) 200 mg PO DAILY [facility] Last Admin: 07/07/17 09:02 Dose: 200 mg Ceftriaxone Sodium 2 gm/ (Sodium Chloride) 100 mls @ 100 mls/hr IV Q24H [facility] Last Admin: 07/07/17 10:33 Dose: 100 mls/hr Azithromycin 500 mg/ Sodium (Chloride) 250 mls @ 250 mls/hr IV DAILY [facility] Last Admin: 07/07/17 09:02 Dose: 250 mls/hr Methylprednisolone Sodium Succinate (Solu-Medrol) 125 mg IVPUSH Q8H [facility] Last Admin: 07/07/17 06:19 Dose: 125 mg Miscellaneous Information (Remove Patch) 1 ea TRDERM DAILY [facility] Last Admin: 07/07/17 09:05 Dose: Not Given Miscellaneous Information (Remove Patch) 1 ea TRDERM Q72H [facility] Nicotine (Habitrol) 21 mg TRDERM DAILY [facility] Last Admin: 07/07/17 09:00 Dose: 21 mg Ondansetron HCl (Zofran) 4 mg IVPUSH Q8H PRN PRN Reason: Nausea/Vomiting Oxycodone HCl (Oxycodone) 5 mg PO Q6H PRN PRN Reason: Pain Last Admin: 07/06/17 18:08 Dose: 5 mg Pantoprazole Sodium (Protonix) 40 mg PO ACBRK [facility] Last Admin: 07/07/17 06:25 Dose: 40 mg Fluocinolone/Emol Comb No.65 [Synalar 0.025% Cream Kit] 1 0 each PO BID PRN PRN Reason: Rash Polyethylene Glycol (Miralax) 17 gm PO DAILY [facility] Last Admin: 07/07/17 08:55 Dose: 17 gm Senna/Docusate Sodium (Senna Plus) 1 tab PO BID [facility] Last Admin: 07/07/17 09:02 Dose: 1 tab Sodium Chloride (Saline Flush) 10 ml FLUSH ASDIRECTED PRN PRN Reason: Keep Vein Open Last Admin: 07/06/17 11:06 Dose: 10 ml Spironolactone (Aldactone) 25 mg PO DAILY [facility] Last Admin: 07/07/17 09:01 Dose: 25 mg Tamsulosin HCl (Flomax) 0.8 mg PO BEDTIME [facility] Last Admin: 07/06/17 20:41 Dose: 0.8 mg Temazepam (Restoril) 7.5 mg PO BEDTIME PRN PRN Reason: Insomnia Tramadol HCl (Ultram) 50 mg PO Q8H PRN PRN Reason: Pain (moderate 4-6) Last Admin: 07/07/17 08:58 Dose: 50 mg Discontinued Medications Acetaminophen (Tylenol) 975 mg PO NOW ONE Stop: 07/06/17 10:52 Last Admin: 07/06/17 10:53 Dose: 975 mg Acetaminophen (Tylenol) Confirm Administered Dose 975 mg .ROUTE .STK-MED ONE Stop: 07/06/17 10:53 Last Admin: 07/06/17 11:06 Dose: Not Given Albuterol/Ipratropium (Duoneb 3.0-0.5 Mg/3 Ml) 3 ml NEB ONETIME ONE Stop: 07/06/17 11:15 Last Admin: 07/06/17 11:24 Dose: 3 ml Fentanyl (Duragesic) 25 mcg TRDERM Q72H [facility] Fentanyl (Duragesic) 25 mcg TRDERM Q72H [facility] Last Admin: 07/06/17 18:10 Dose: 25 mcg Azithromycin 500 mg/ Sodium (Chloride) 250 mls @ 250 mls/hr IV ONETIME ONE Stop: 07/06/17 12:11 Last Admin: 07/06/17 11:45 Dose: 250 mls/hr Ceftriaxone Sodium 2 gm/ (Sodium Chloride) 100 mls @ 100 mls/hr IV ONETIME ONE Stop: 07/06/17 12:11 Last Admin: 07/06/17 11:24 Dose: 100 mls/hr Sodium Chloride (Normal Saline) 1,000 mls @ 999 mls/hr IV ONETIME ONE Stop: 07/06/17 12:13 Last Admin: 07/06/17 11:24 Dose: 999 mls/hr Magnesium Sulfate 2 gm/ Premix 50 mls @ 25 mls/hr IV ONETIME ONE Stop: 07/06/17 14:25 Last Admin: 07/06/17 12:58 Dose: 25 mls/hr Lactated Ringer's (Ringers, Lactated) 2,000 mls @ 999 mls/hr IV .BOLUS ONE Stop: 07/06/17 16:32 Last Admin: 07/06/17 15:03 Dose: 999 mls/hr Miscellaneous Information (Remove Patch) 1 ea TRDERM Q72H [facility] Oxycodone/Acetaminophen (Percocet 325-5 Mg) 1 tab PO Q6H PRN PRN Reason: Pain Oxycodone/Acetaminophen (Percocet 325-5 Mg) 1 tab PO Q6H PRN PRN Reason: Pain Last Admin: 07/07/17 03:39 Dose: 1 tab Pneumococcal Polyvalent Vaccine (Pneumovax 23) 0.5 ml IM .ONCE ONE Stop: 07/06/17 14:21 - Exam Quality Assessment: Reports: DVT Prophylaxis. Denies: Supplemental Oxygen General: Reports: Alert, Oriented, Cooperative, No Acute Distress HEENT: Reports: Pupils Equal, Pupils Reactive, EOMI, Mucous Membr. Moist/[place] Neck: Reports: Supple Lungs: Reports: Clear to Auscultation, Normal Respiratory Effort, Wheezing ( slight wheezing in left lower lung field) Cardiovascular: Reports: Regular Rate, Regular Rhythm GI/Abdominal Exam: Normal Bowel Sounds, Soft, Non-Tender, No Organomegaly, No Distention, No Abnormal Bruit, No Mass, Pelvis Stable, Hernia (umbilical) (Male) Exam: Deferred Rectal (Males) Exam: Deferred Back Exam: Reports: Normal Inspection, Full Range of Motion Extremities: Normal Inspection, Normal Range of Motion, Non-Tender, No Pedal Edema, Normal Capillary Refill Skin: Reports: Warm, Dry, Intact Neurological: Reports: No New Focal Deficit Psy/Mental Status: Reports: Alert, Normal Affect, Normal Mood
== END 2017-07-07 18:35 | disposition home or self-care (01) | DRG 194 ==
LOC: JD.ED 10:27 → JD.MS 12:40
PROVIDERS: ADMIT Internal Medicine Cardiovascular Disease; ATTEND Internal Medicine Cardiovascular Disease
PROC: 3E0234Z Introduction of Serum, Toxoid and Vaccine into Muscle, Percutaneous Approach (ICD-10-PCS; principal; 2017-07-07)
DX: J18.1 Lobar pneumonia, unspecified organism (principal); F11.20 Opioid dependence, uncomplicated; R09.02 Hypoxemia; I10 Essential (primary) hypertension; K21.9 Gastro-esophageal reflux disease without esophagitis; M32.9 Systemic lupus erythematosus, unspecified; K21.0 Gastro-esophageal reflux disease with esophagitis; B02.9 Zoster without complications; E83.42 Hypomagnesemia; J44.9 Chronic obstructive pulmonary disease, unspecified; I11.0 Hypertensive heart disease with heart failure; I50.9 Heart failure, unspecified; G89.29 Other chronic pain; M54.5 Low back pain; F17.200 Nicotine dependence, unspecified, uncomplicated; H54.7 Unspecified visual loss; R06.00 Dyspnea, unspecified; R06.02 Shortness of breath; R05 Cough; R09.3 Abnormal sputum; R50.9 Fever, unspecified; R61 Generalized hyperhidrosis; R42 Dizziness and giddiness; R51 Headache; R53.81 Other malaise; M19.90 Unspecified osteoarthritis, unspecified site; Z23 Encounter for immunization; E66.9 Obesity, unspecified; Z68.31 Body mass index [BMI] 31.0-31.9, adult; Z88.6 Allergy status to analgesic agent; Z76.5 Malingerer [conscious simulation]; Z79.891 Long term (current) use of opiate analgesic; Z79.899 Other long term (current) drug therapy; Z86.010 Personal history of colon polyps; Z96.659 Presence of unspecified artificial knee joint
CPT/HCPCS: 36415; 71046; 80053; 83605; 83735; 83880; 84484; 85025; 86140; 86738; 87040 ×2; 87486; 87581; 87633; 87798; 87804 ×2; 93005; 94640; 96365; 96367; 99285; A9270; J0456; J0696; J7030; J7040; J7050 ×2; 80048; 87899; 90732; 93010; G0009; J1650; J2930; J3475; J7120

== ENCOUNTER 2018-05-28 07:13 | Day surgery (SDC) | payer MEDICARE ==
--- NOTE | 2018-05-28 06:58 | PCM.PREANE ---
Preanesthetic Assessment - Anesthesia/Transfusion/Family Hx Anesthesia History: Prior Anesthesia Without Reaction Family History of Anesthesia Reaction: No Transfusion History: No Prior Transfusion(s) Intubation History: Unknown - Review of Systems General: No Symptoms Pulmonary: No Symptoms (Current Smoker: 1PPD for 48 years/PAUL noted), Cough, Sputum Cardiovascular: No Symptoms (History of HTN) Gastrointestinal: No Symptoms (GERD-controlled), Abdominal Pain, Constipation Neurological: No Symptoms (Spinal stenosis, lumbar region with neurogenic claudication/History of Lupus/Chronic Lower back pain/motion sickness), Numbness (Post herpetic neualgia-fingertips bilaterally) Other: Reports: Easy Bruising, Sinus Problem (allergic rhinitis), Depression - Physical Assessment NPO Status Date: 05/27/18 NPO Status Time: 22:00 Pulse: 97 O2 Sat by Pulse Oximetry: 94 Respiratory Rate: 16 Blood Pressure: 136/70 Height: 1.63 m Weight: 90.718 kg ASA Class: 3 Mental Status: Alert & Oriented x3 Airway Class: Mallampati = 2 Dentition: Reports: Normal Dentition, Caries Thyro-Mental Finger Breadths: 3 Mouth Opening Finger Breadths: 3 Lungs: Clear to Auscultation, Normal Respiratory Effort, Crackles (bases) Cardiovascular: Regular Rate, Regular Rhythm, No Murmurs - Lab Values: All labs reviewed and noted, repeat BMP ordered for am, awaiting results of potassium. Otherwise, all results within acceptable ranges to proceed with scheduled procedure. - Imaging/EKG Impressions: EKG: SR rate=93, Borderline intraventricular conduction delay CXR: 2018/interstitial changes noted. - Allergies Allergies/Adverse Reactions: Allergies Allergy/AdvReac Type Severity Reaction Status Date / Time adhesive Allergy Blisters Verified 05/27/18 14:22 morphine AdvReac Mild Drowsiness Verified 05/27/18 14:22 - Anesthesia Plan Pre-Op Medication Ordered: None - Acknowledgements Anesthesia Type Planned: General Anesthesia Pt an Appropriate Candidate for the Planned Anesthesia: Yes Alternatives and Risks of Anesthesia Discussed w Pt/Guardian: Yes Pt/Guardian Understands and Agrees with Anesthesia Plan: Yes PreAnesthesia Questionnaire HEENT History: Reports: Impaired Vision, Other (See Below) Other HEENT History: glasses, has dentures Cardiovascular History: Reports: Hypertension Respiratory History: Reports: Pneumonia, Recurrent, Sleep Apnea Other Respiratory History: 2016 contusion to left lung and pneumonia post fall Gastrointestinal History: Reports: Colon Polyp, GERD Other Gastrointestinal History: abdomenal hernia Genitourinary History: Reports: BPH, Other (See Below) Other Genitourinary History: frequency; urgency [employer] History: Reports: None Musculoskeletal History: Reports: Arthritis, Back Pain, Chronic Other Musculoskeletal History: Back surgery Neurological History: Reports: Other (See Below) Other Neuro History: spinal stenosis, neuralgia Psychiatric History: Reports: Anxiety, Depression Other Psychiatric History: on medication Endocrine/Metabolic History: Reports: Obesity/BMI 30+ Hematologic History: Reports: None Immunologic History: Reports: SLE Oncologic (Cancer) History: Reports: None Dermatologic History: Reports: Other (See Below) Other Dermatologic History: SLE - Infectious Disease History Infectious Disease History: Reports: Shingles - Past Surgical History Head Surgeries/Procedures: Reports: None HEENT Surgical History: Reports: Oral Surgery, Tonsillectomy Other HEENT Surgeries/Procedures: upper dentures here; lower dentures left at home Cardiovascular Surgical History: Reports: None Respiratory Surgical History: Reports: None GI Surgical History: Reports: Colonoscopy Other GI Surgeries/Procedures: colonscopy "about 6 years ago" Female Surgical History: Reports: None Male Surgical History: Reports: None Endocrine Surgical History: Reports: None Neurological Surgical History: Reports: Laminectomy, Lumbar Spine Musculoskeletal Surgical History: Reports: Knee Replacement, Shoulder Surgery Other Musculoskeletal Surgeries/Procedures:: Left knee replaced Left shoulder replacement, multiple leg surgeries from polio as a child Oncologic Surgical History: Reports: None - SUBSTANCE USE Smoking Status *Q: Current Every Day Smoker Recreational Drug Use History: No - HOME MEDS Home Medications: Home Meds Pantoprazole Sodium [Protonix] 40 mg PO DAILY 07/22/16 [History] Clobetasol Propionate [Temovate 0.05% Oint] 1 applic TOP BEDTIME PRN 01/03/17 [ History] Fluocinolone/Emol Comb No.65 [Synalar 0.025% Cream Kit] 1 applic PO BID PRN 05/17 [History] Hydroxychloroquine [Plaquenil] 200 mg PO BID 01/03/17 [History] Ibuprofen 200 - 600 mg PO TID PRN 01/03/17 [History] Spironolactone [Aldactone] 25 mg PO DAILY 01/03/17 [History] Tamsulosin [Flomax] 0.8 mg PO BEDTIME 01/03/17 [History] amLODIPine [Norvasc] 10 mg PO DAILY 01/03/17 [History] Mirtazapine 45 mg PO BEDTIME 07/07/17 [History] Phentermine HCl 30 mg PO DAILY 07/07/17 [History] Eszopiclone [Lunesta] 3 mg PO BEDTIME PRN 05/27/18 [History] Fluticasone Propionate [Flonase] 1 dose NASBOTH BID 05/27/18 [History] Gabapentin [Gralise] 900 mg PO TID 05/27/18 [History] Ketoconazole [Nizoral 2% Shampoo] 1 dose TOP BID 05/27/18 [History] Lidocaine/Prilocaine [EMLA Crm] 1 dose TOP BID PRN 05/27/18 [History] Lisinopril 20 mg PO DAILY 05/27/18 [History] hydroCHLOROthiazide [Hydrochlorothiazide] 12.5 mg PO DAILY 05/27/18 [History] oxyCODONE HCl/Acetaminophen [Percocet 10-325 mg Tablet] 2 tab PO ASDIRECTED PRN 05/28/18 [History] - CURRENT (IN HOUSE) MEDS Current Meds: Current Medications Lactated Ringer's (Ringers, Lactated) 1,000 mls @ 125 mls/hr IV ASDIRECTED ANDER Stop: 05/28/18 23:00 Lidocaine/Sodium Bicarbonate (Buffered Lidocaine 1% In Ns 8.4%) 0.25 ml IDERM ONETIME PRN PRN Reason: Prior to IV Start Stop: 05/28/18 23:00 Sodium Chloride (Saline Flush) 10 ml FLUSH ASDIRECTED PRN PRN Reason: Keep Vein Open Stop: 05/28/18 23:00
[~2018-05-28 07:13] MED LIST: Albuterol 0.083% 2.5 MG/3 ML Neb Soln NEB PRN; Lactated Ringers 1,000 ML IV SCH; Lidocaine 1%/Sod Bicarbonate in NS 8.4% 1 ML Syringe IDERM PRN; Sodium Chloride 0.9% 10 ML Syringe FLUSH PRN
[2018-05-28] MEDS ORDERED: Ondansetron 4 MG/2 ML SDV ONE (07:26)
[2018-05-28] MEDS ORDERED: Rocuronium 50 MG/5 ML Vial ONE (07:26)
[2018-05-28] MEDS ORDERED: Ketorolac 30 MG/ML SDV ONE (07:26)
[2018-05-28] MEDS ORDERED: Dexamethasone 4 MG/ML 5 ML MDV ONE (07:26)
[2018-05-28] MEDS ORDERED: HYDROmorphone 0.5 MG/0.5 ML Syringe ONE (07:26)
[2018-05-28] MEDS ORDERED: Lidocaine 1% 6 ML ONE (07:26)
[2018-05-28] MEDS ORDERED: Lactated Ringers 1,000 ML ONE (07:26)
[2018-05-28] MEDS ORDERED: ceFAZolin 1 GM Vial ONE (07:26)
[2018-05-28] MEDS ORDERED: Midazolam 1 MG/ML 2 ML SDV ONE (07:27)
[2018-05-28] MEDS ORDERED: fentaNYL 250 MCG/5 ML SDV ONE (07:27)
[2018-05-28] MEDS ORDERED: Propofol 200 MG/20 ML SDV ONE ×2 (07:27→08:32)
[2018-05-28] MEDS ORDERED: Scopolamine 1.5 MG Transdermal Patch TRDERM ONE (07:54)
[2018-05-28] MEDS ORDERED: Lidocaine 1% 30 ML SDV ONE (08:03)
[2018-05-28] MEDS ORDERED: Bupivacaine 0.5% 30 ML SDV ONE (08:04)
[2018-05-28] MEDS ORDERED: Albuterol 0.083% 2.5 MG/3 ML Neb Soln NEB ONE (08:56)
[2018-05-28] MEDS ORDERED: fentaNYL 100 MCG/2 ML SDV IVPUSH PRN (08:56)
[2018-05-28] MEDS ORDERED: HYDROmorphone 0.5 MG/0.5 ML Syringe IVPUSH PRN (08:56)
[2018-05-28] MEDS ORDERED: ePHEDrine 50 MG/ML SDV IVPUSH PRN (08:56)
[2018-05-28] MEDS ORDERED: Ondansetron 4 MG/2 ML SDV IVPUSH PRN (08:56)
[2018-05-28] MEDS ORDERED: diphenhydrAMINE 50 MG/ML SDV IVPUSH PRN (08:56)
[2018-05-28] MEDS ORDERED: Phenylephrine 1 MG in Sodium Chloride 0.9% 10 ML IV SCH (09:00)
[2018-05-28] MEDS ORDERED: Neostigmine Methylsulfate 1 MG/ML 5 ML Syringe ONE (09:05)
--- NOTE | 2018-05-28 09:41 | PCM.OPNOTE ---
- General Post-Op/Procedure Note Date of Surgery/Procedure: 05/28/18 Operative Procedure(s): umbiclical hernia repair with mesh Pre Op Diagnosis: umbilical hernia Post-Op Diagnosis: Same Anesthesia Technique: MAC Primary Surgeon: Olman Delatorre EBMallory in mLs: 10 Complications: None Condition: Good
--- NOTE | 2018-05-28 09:51 | PCM.POSTAN ---
POST ANESTHESIA ASSESSMENT - MENTAL STATUS Mental Status: Alert - VITAL SIGNS Pulse Rate: 91 SaO2: 95 (4LPM nasal cannula) Resp Rate: 97 Blood Pressure: 136/70 Temperature: 37.2 C - RESPIRATORY Respiratory Status: Respiratory Rate WNL, Airway Patent, O2 Saturation Stable, Supplemental Oxygen - CARDIOVASCULAR CV Status: Pulse Rate WNL, Blood Pressure Stable - GASTROINTESTINAL GI Status: No Symptoms - POST OP HYDRATION Hydration Status: Adequate & Stable
[2018-05-28] MEDS ORDERED: Acetaminophen/HYDROcodone 325-5 MG Tab PO PRN (10:26)
--- NOTE | 2018-05-28 11:32 | PCM48HPAN ---
Post Anesthesia Note - EVALUATION WITHIN 48HRS OF ANESTHETIC Vital Signs in Normal Range: Yes Patient Participated in Evaluation: Yes Respiratory Function Stable: Yes Airway Patent: Yes Cardiovascular Function Stable: Yes Hydration Status Stable: Yes Pain Control Satisfactory: Yes Nausea and Vomiting Control Satisfactory: Yes Mental Status Recovered: Yes
--- NOTE | 2018-05-28 13:09 | PCM48HPAN ---
Post Anesthesia Note - EVALUATION WITHIN 48HRS OF ANESTHETIC Vital Signs in Normal Range: Yes Patient Participated in Evaluation: Yes Respiratory Function Stable: Yes Airway Patent: Yes Cardiovascular Function Stable: Yes Hydration Status Stable: Yes Pain Control Satisfactory: Yes Nausea and Vomiting Control Satisfactory: Yes Pulse Rate: 91 SaO2: 82 (room air with ambulation) Resp Rate: 16 Temperature: 37.2 C Blood Pressure: 136/70 - COMMENTS/OBSERVATIONS Free Text/Narrative:: Same day surgery qualification with patient being observed and monitored for decreased SpO2 levels on room air with ambulation. Lowest SpO2 on room air noted after ambulation = low 80's% return to baseline(94 %) takes awhile. Repeat CXR ordered to compare 07/2018 which showed some interstitial changes. Concerns, Treatment plan, and possibility of need for Home O2 discussed with patient and his . Both demonstrate understanding and agree to be monitored overnight. Thank you Portia LING
[2018-05-28 17:04] VITALS: BP 124/58
--- NOTE | 2018-05-29 07:00 | OR ---
DATE OF OPERATION: 05/28/2018 SURGEON: Olman Delatorre MD PREOPERATIVE DIAGNOSIS: Umbilical hernia with incarceration. POSTOPERATIVE DIAGNOSIS: Umbilical hernia with incarceration. FINDINGS: A 2.5 cm opening in the umbilicus. OPERATION PERFORMED: Repair with mesh. ANESTHESIA: Done under general anesthetic. ESTIMATED BLOOD LOSS: About 10 mL. DESCRIPTION OF PROCEDURE: The patient was taken to the operating room, placed in a supine position, connected to monitoring equipment, given a general anesthetic, intubated, antibiotics were given. The abdomen was clipped and prepped with chlorhexidine- alcohol prep, draped off in a sterile fashion. A curvilinear incision was made just below the umbilicus, carried down by sharp dissection to the fascia. Then, the umbilicus was lifted off the hernia and the hernia sac was identified. It was dissected around the opening of the hernia sac and then inverted. Preperitoneal space was then prepared. Electrocautery used for control of hemostasis. Once a large enough space was developed in the preperitoneal space, a 6.[address] hernia patch was placed in this defect and the hernia was then closed over the patch with interrupted 0 Ethibond suture. The 2 tails of the hernia patch were trimmed and then sutured down to the fascia with interrupted 2-0 Vicryl suture. The umbilicus was then sutured down to this repair with interrupted 2-0 Vicryl suture. The subcuticular tissue closed with interrupted 2-0 Vicryl suture and the skin with a running subdermal 4-0 Dexon suture. A sterile dressing placed. No Steri-Strips were used. The patient tolerated the procedure and sent to recovery room in a stable condition. MMODAL /[id number]
== END 2018-05-28 15:38 | disposition home or self-care (01) ==
LOC: JD.SDS 07:13
PROVIDERS: ATTEND Surgery
DX: K42.0 Umbilical hernia with obstruction, without gangrene (principal); I10 Essential (primary) hypertension; E66.9 Obesity, unspecified; Z68.36 Body mass index [BMI] 36.0-36.9, adult; F17.210 Nicotine dependence, cigarettes, uncomplicated; G47.30 Sleep apnea, unspecified; N40.0 Benign prostatic hyperplasia without lower urinary tract symptoms; M79.2 Neuralgia and neuritis, unspecified; K21.9 Gastro-esophageal reflux disease without esophagitis; L93.0 Discoid lupus erythematosus; F32.9 Major depressive disorder, single episode, unspecified; M19.90 Unspecified osteoarthritis, unspecified site; Z79.899 Other long term (current) drug therapy; Z88.5 Allergy status to narcotic agent; Z91.048 Other nonmedicinal substance allergy status
CPT/HCPCS: 36415; 49587; 80048; 94640; A9270; C1781; J0690; J1100; J1170; J1885; J2001; J2250; J2405; J2704; J2710; J3010; J3490; J7120

== ENCOUNTER 2019-04-16 19:50 | Emergency (ER) | payer MEDICARE ==
[2019-04-16 20:07] VITALS: BP 145/72; PULSE 87
[2019-04-16] MEDS ORDERED: Dexamethasone 10 MG/ML SDV IM ONE (20:21)
--- NOTE | 2019-04-16 20:29 | EDM.PDOC ---
ED HPI GENERAL MEDICAL PROBLEM - General Chief Complaint: Lower Extremity Injury/Pain Stated Complaint: left leg pain Time Seen by Provider: 04/16/19 19:59 Source of Information: Reports: Patient, RN Notes Reviewed History Limitations: Reports: No Limitations - History of Present Illness INITIAL COMMENTS - FREE TEXT/NARRATIVE: Patient is a 68-year-old male who presents to the ED for left leg pain. Patient notes that he has chronic back pain, that he gets pain injections for. He notes that his next injection is scheduled for May 02. He also takes 900 mg of gabapentin 3 times daily, and oxycodone 10/325's, x2 tablets as needed for pain. He states this is not been providing him much relief. He notes that any sort of movement of the leg or hip seems to make the pain worse, but when he rested it makes it feel better. He is aware that this is a chronic condition , but states that he can does not tolerate the pain any longer. He does not recount any trauma, no near slips trips or falls. He states that the pain is in his left hip, and radiates to his left thigh. He states that it has worsened over the last 3 days. His last pain injection was 3 months prior to May 02. He notes that he still can walk, however it is very painful to do so. Left Lower Back Pain Score (Numeric/FACES): 8 - Related Data Allergies Allergy/AdvReac Type Severity Reaction Status Date / Time adhesive Allergy Blisters Verified 04/16/19 20:00 morphine AdvReac Mild Drowsiness Verified 04/16/19 20:00 Home Meds: Home Meds Pantoprazole Sodium [Protonix] 40 mg PO DAILY 07/22/16 [History] Clobetasol Propionate [Temovate 0.05% Oint] 1 applic TOP BEDTIME PRN 01/03/17 [ History] Fluocinolone/Emol Comb No.65 [Synalar 0.025% Cream Kit] 1 applic PO BID PRN 05/17 [History] Hydroxychloroquine [Plaquenil] 200 mg PO BID 01/03/17 [History] Ibuprofen 200 - 600 mg PO TID PRN 01/03/17 [History] Spironolactone [Aldactone] 25 mg PO DAILY 01/03/17 [History] Tamsulosin [Flomax] 0.8 mg PO BEDTIME 01/03/17 [History] amLODIPine [Norvasc] 10 mg PO DAILY 01/03/17 [History] Mirtazapine 45 mg PO BEDTIME 07/07/17 [History] Phentermine HCl 30 mg PO DAILY 07/07/17 [History] Eszopiclone [Lunesta] 3 mg PO BEDTIME PRN 05/27/18 [History] Fluticasone Propionate [Flonase] 1 dose NASBOTH BID 05/27/18 [History] Gabapentin [Gralise] 900 mg PO TID 05/27/18 [History] Ketoconazole [Nizoral 2% Shampoo] 1 dose TOP BID 05/27/18 [History] Lidocaine/Prilocaine [EMLA Crm] 1 dose TOP BID PRN 05/27/18 [History] Lisinopril 20 mg PO DAILY 05/27/18 [History] hydroCHLOROthiazide [Hydrochlorothiazide] 12.5 mg PO DAILY 05/27/18 [History] oxyCODONE HCl/Acetaminophen [Percocet 10-325 mg Tablet] 2 tab PO ASDIRECTED PRN 05/28/18 [History] predniSONE 20 mg PO ASDIRECTED #15 tab 04/16/19 [Rx] Past Medical History HEENT History: Reports: Impaired Vision, Other (See Below) Other HEENT History: glasses, has dentures Cardiovascular History: Reports: Hypertension Respiratory History: Reports: Pneumonia, Recurrent, Sleep Apnea Other Respiratory History: 2016 contusion to left lung and pneumonia post fall Gastrointestinal History: Reports: Colon Polyp, GERD Other Gastrointestinal History: abdominal hernia Genitourinary History: Reports: BPH, Other (See Below) Other Genitourinary History: frequency; urgency Musculoskeletal History: Reports: Arthritis, Back Pain, Chronic Other Musculoskeletal History: Back surgery Neurological History: Reports: Other (See Below) Other Neuro History: spinal stenosis, neuralgia Psychiatric History: Reports: Anxiety, Depression Other Psychiatric History: on medication Endocrine/Metabolic History: Reports: Obesity/BMI 30+ Immunologic History: Reports: SLE Dermatologic History: Reports: Other (See Below) Other Dermatologic History: SLE - Infectious Disease History Infectious Disease History: Reports: Shingles - Past Surgical History HEENT Surgical History: Reports: Oral Surgery, Tonsillectomy Other HEENT Surgeries/Procedures: upper dentures here; lower dentures left at home GI Surgical History: Reports: Colonoscopy Other GI Surgeries/Procedures: colonscopy "about 6 years ago" Neurological Surgical History: Reports: Laminectomy, Lumbar Spine Musculoskeletal Surgical History: Reports: Knee Replacement, Shoulder Surgery Other Musculoskeletal Surgeries/Procedures:: Left knee replaced Left shoulder replacement, multiple leg surgeries from polio as a child Social & Family History - Family History Family Medical History: Noncontributory - Tobacco Use Smoking Status *Q: Current Every Day Smoker Years of Tobacco use: 40 Packs/Tins Daily: 1 - Caffeine Use Caffeine Use: Reports: Coffee - Recreational Drug Use Recreational Drug Use: No - Living Situation & Occupation Living situation: Reports: , with Spouse, with Family (Daughter, 2 grandchildren) Occupation: Retired Review of Systems - Review of Systems Review Of Systems: Comprehensive ROS is negative, except as noted in HPI. Musculoskeletal: Reports: Back Pain (L lower back pain w radiation to L leg), Leg Pain (Left leg) ED EXAM, GENERAL - Physical Exam Exam: See Below Exam Limited By: No Limitations General Appearance: Alert, WD/WN, No Apparent Distress (pt appears to be in mild amount of pain) Respiratory/Chest: No Respiratory Distress, Lungs Clear, Normal Breath Sounds, No Accessory Muscle Use, Chest Non-Tender Cardiovascular: Normal Peripheral Pulses, Regular Rate, Rhythm, No Murmur Peripheral Pulses: 3+: Radial (L), Radial (R) GI/Abdominal: Normal Bowel Sounds, Soft, Non-Tender, No Distention, No Mass Back Exam: Normal Inspection, Decreased Range of Motion (d/t left lower back pain) Extremities: Normal Inspection, Normal Capillary Refill Neurological: Alert, Oriented, Normal Cognition, No Motor/Sensory Deficits, Abnormal Gait (limping gait d/t pain) Psychiatric: Normal Affect, Normal Mood Skin Exam: Warm, Dry, Intact, Normal Color, No Rash Course - Vital Signs Last Recorded V/S: Last Vital Signs Temp 98.4 F 04/16/19 20:02 Pulse 87 04/16/19 20:02 Resp 13 04/16/19 20:02 BP 145/72 H 04/16/19 20:02 Pulse Ox 95 04/16/19 20:02 - Orders/Labs/Meds Meds: Medications Discontinued Medications Generic Name Dose Route Start Last Admin Trade Name Freq PRN Reason Stop Dose Admin Dexamethasone 10 mg 04/16/19 20:21 Dexamethasone IM 04/16/19 20:22 ONETIME ONE - Re-Assessments/Exams Free Text/Narrative Re-Assessment/Exam: 04/16/19 20:30 Patient presents to the ED for the evaluation of increasing left lower back pain with left leg pain. I do believe this is an aggravation of sciatica in nature. Patient will be treated as such. He will be given an outpatient course of prednisone for management, to start tomorrow. But will be given a 10 mg injection of dexamethasone in the ER to help start this process. Departure - Departure Time of Disposition: 20:31 Disposition: Home, Self-Care 01 Condition: Fair Clinical Impression: Low back pain Qualifiers: Chronicity: acute Back pain laterality: left Sciatica presence: with sciatica Sciatica laterality: sciatica of left side Qualified Code(s): M54.42 - Lumbago with sciatica, left side - Discharge Information *PRESCRIPTION DRUG MONITORING PROGRAM REVIEWED*: Yes *COPY OF PRESCRIPTION DRUG MONITORING REPORT IN PATIENT ZAIN: No Prescriptions: predniSONE 20 mg PO ASDIRECTED #15 tab Instructions: Sciatica, [id number] Referrals: Calixto Strange MD [Primary Care Provider] - Additional Instructions: You were evaluated in the ER today regarding your left leg pain. This is likely due to an aggravation of your sciatic nerve. You were given an injection of dexamethasone in the ER, and will be provided with a prescription for prednisone to take on outpatient basis. [facility] request, you will have to go there tomorrow and pick this up. They were only open from 9-12 on Saturdays, you will need to go there during this time window to pick these medications up and take as directed. Recommend you try using a heat/ice packs to the area to see if this does not provide further relief. You may also continue to take your regular pain medications as prescribed. Please keep your appointment with your pain doctor for May 02 for ongoing management of your pain. Please return to the ER however if your symptoms change or worsen. Sepsis Event Note - Evaluation Sepsis Screening Result: No Definite Risk - Focused Exam Vital Signs: Vital Signs Temp Pulse Resp BP Pulse Ox 04/16/19 20:02 98.4 F 87 13 145/72 H 95 Date Exam was Performed: 04/16/19 Time Exam was Performed: 20:22
== END 2019-04-16 21:14 | disposition home or self-care (01) ==
LOC: JD.ED 19:50
DX: M54.42 Lumbago with sciatica, left side (principal); I10 Essential (primary) hypertension; K21.9 Gastro-esophageal reflux disease without esophagitis; E66.9 Obesity, unspecified; N40.0 Benign prostatic hyperplasia without lower urinary tract symptoms; F17.210 Nicotine dependence, cigarettes, uncomplicated; Z91.048 Other nonmedicinal substance allergy status; Z88.5 Allergy status to narcotic agent; Z68.35 Body mass index [BMI] 35.0-35.9, adult; Z79.899 Other long term (current) drug therapy
CPT/HCPCS: 96372; 99283; J1100